=== PATIENT | male | born 1970 ===

== ENCOUNTER 2017-03-18 18:09 | Emergency (ER) | payer MEDICAID ==
[2017-03-18 18:20] VITALS: BMI 24.4
[2017-03-18 18:26] VITALS: RESP 18; O2SAT 100
[2017-03-18 20:03] LABS: BASO % 0.5 % (0.0-2.0); EOS # 0.3 K/uL (0.0-0.7); EOS % 5.3 % (0.0-4.0); HEMOGLOBIN 14.2 g/dL (12.0-18.0); LYMPH # 2.2 K/uL (1.0-4.3); LYMPH % 42.6 % (20.0-40.0); MEAN CELL VOLUME 89.2 fL (80.0-94.0); MEAN CORPUSCULAR HEMOGLOBIN 30.7 pg (27.0-31.0); MEAN CORPUSCULAR HGB CONC 34.4 g/dL (33.0-37.0); MEAN PLATELET VOLUME 9.4 fL (7.2-11.7); MONO # 0.6 K/uL (0.0-0.8); MONO % 11.2 % (0.0-10.0); NEUT # 2.1 K/uL (1.8-7.0); NEUT % 40.4 % (50.0-75.0); RBC 4.62 Mil/uL (4.40-5.90); RED CELL DISTRIBUTION WIDTH 12.6 % (11.5-14.5); WHITE BLOOD COUNT 5.1 K/uL (4.8-10.8)
[2017-03-18 20:11] LABS: INR 1.2; PROTHROMBIN TIME 12.9 SECONDS (9.7-12.2)
[2017-03-18 20:14] LABS: ALB/GLOB RATIO 1.3 (1.0-2.1); ALBUMIN 4.1 g/dL (3.5-5.0); ALT/SGPT 35 U/L (21-72); AST/SGOT 23 U/L (17-59); BLOOD UREA NITROGEN 23 mg/dL (9-20); CALCIUM 8.8 mg/dl (8.6-10.4); GFR AFRICAN-AMERICAN > 60; GFR NON-AFRICAN AMERICAN > 60
[2017-03-18 20:25] LABS: B-TYPE NATRIURETIC PEPTIDE 48.3 pg/mL (0-450)
--- NOTE | 2017-03-18 20:58 | C.PDOC ---
History Of Present Illness 47 years old male presents to ED with complaints of bilateral shoulders discomfort with movement associated with chest discomfort. 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 Patient denies fever, nausea, vomiting or diarrhea. Time Seen by Provider: 03/18/17 20:24 Chief Complaint (Nursing): Chest Pain History Per: Patient History/Exam Limitations: no limitations Onset/Duration Of Symptoms: Hrs Current Symptoms Are (Timing): Still Present Severity: Moderate Pain Scale Rating Of: 4 Quality: Other (Discomfort) Associated Symptoms: denies: Nausea, Dyspnea, Diaphoresis, Syncope Exacerbating Factors: Movement Recent travel outside of the [place]: No Past Medical History Reviewed: Historical Data, Nursing Documentation, Vital Signs Vital Signs: Last Vital Signs Temp 97.6 F 03/18/17 21:12 Pulse 60 03/18/17 21:12 Resp 18 03/18/17 21:12 BP 126/80 03/18/17 21:12 Pulse Ox 100 03/18/17 21:12 - Medical History PMH: HTN - [facility] Procedures CLOSURE SKIN & SUBCUTANEOUS NEC (10/23/14) Family History: States: No Known Family Hx - Social History Hx Alcohol Use: No Hx Substance Use: No - Immunization History Hx Tetanus Toxoid Vaccination: No Hx Influenza Vaccination: No Hx Pneumococcal Vaccination: No Review Of Systems Cardiovascular: Positive for: Other (Chest discomfort) Respiratory: Negative for: Shortness of Breath Gastrointestinal: Negative for: Nausea, Vomiting, Diarrhea Musculoskeletal: Positive for: Other (Shoulder discomfort bilaterally) Skin: Negative for: Rash Neurological: Negative for: Weakness, Numbness Psych: Negative for: Depression, Suicidal ideation Physical Exam - Physical Exam Appears: Non-toxic, Other (Awake and alert) Skin: Normal Color, Warm, Dry, No Rash Head: Atraumatic, Normacephalic Eye(s): bilateral: Normal Inspection Oral Mucosa: Moist Neck: Supple Chest: Symmetrical, Tenderness (Mildly on left anterior chest ) Cardiovascular: Rhythm Regular Respiratory: Normal Breath Sounds, No Rales, No Rhonchi, No Wheezing Gastrointestinal/Abdominal: Soft, No Tenderness Extremity: Normal ROM, No Tenderness Neurological/Psych: Oriented x3, Normal Speech, Normal Cognition ED Course And Treatment - Laboratory Results Result Diagrams: 03/18/17 19:59 03/18/17 19:59 Lab Interpretation: Normal (trop neg.) ECG: Interpreted By Me ECG Rhythm: Sinus Rhythm ECG Interpretation: Normal Rate From EC O2 Sat by Pulse Oximetry: 100 (Room air ) Pulse Ox Interpretation: Normal Reevaluation Time: 20:56 Reassessment Condition: Improved Medical Decision Making Medical Decision Making: Ordered EKG and blood work. 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 NO s/s of cardiac Disposition Doctor Will See Patient In The: Office Counseled Patient/Family Regarding: Studies Performed, Diagnosis - Disposition Referrals: Lisa Baez MD [Staff Provider] - Disposition: HOME/ ROUTINE Disposition Time: 20:57 Condition: GOOD Additional Instructions: ice packs and motrin as needed Follow-up with Dr. Baez. Instructions: Musculoskeletal Pain (ED) Forms: [facility] [employer] [facility] (Serbian) - Clinical Impression Clinical Impression: Shoulder strain - Scribe Statement The provider has reviewed the documentation as recorded by the Scribe Dawna Dia All medical record entries made by the Scribe were at my direction and personally dictated by me. I have reviewed the chart and agree that the record accurately reflects my personal performance of the history, physical exam, medical decision making, and the department course for this patient. I have also personally directed, reviewed, and agree with the discharge instructions and disposition.
[2017-03-18 21:13] VITALS: BP 126/80; PULSE 60; TEMP 97.6
== END 2017-03-18 21:15 | disposition home or self-care (01) ==
LOC: C.ER 18:09
DX: S46.912A Strain of unspecified muscle, fascia and tendon at shoulder and upper arm level, left arm, initial encounter (principal); S46.911A Strain of unspecified muscle, fascia and tendon at shoulder and upper arm level, right arm, initial encounter; X50.9XXA Other and unspecified overexertion or strenuous movements or postures, initial encounter; Y92.89 Other specified places as the place of occurrence of the external cause; Y99.8 Other external cause status; I10 Essential (primary) hypertension

== ENCOUNTER 2017-05-19 12:15 | Emergency (ER) | payer MEDICAID ==
[2017-05-19 12:16] VITALS: BMI 24.4
[2017-05-19 12:23] VITALS: TEMP 97.6
--- NOTE | 2017-05-19 13:39 | C.PDOC ---
History Of Present Illness 47 yr old male presents to the ER s/p slip and fall on ice today. Patient complains of right sided injury to the right shoulder, right wrist and striking his head on the right side. Patient reports of ongoing headache. Denies LOC, vision changes, nausea, vomiting, neck pain, weakness or numbness. 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) Past Medical History Reviewed: Historical Data, Nursing Documentation, Vital Signs Vital Signs: Last Vital Signs Temp 97.6 F 05/19/17 12:18 Pulse 76 05/19/17 12:18 Resp 18 05/19/17 12:18 BP 110/74 05/19/17 12:18 Pulse Ox 99 05/19/17 14:34 - Medical History PMH: HTN - [facility] Procedures CLOSURE SKIN & SUBCUTANEOUS NEC (10/23/14) Family History: States: No Known Family Hx - Social History Hx Alcohol Use: No Hx Substance Use: No - Immunization History Hx Tetanus Toxoid Vaccination: No Hx Influenza Vaccination: No Hx Pneumococcal Vaccination: No Review Of Systems Except As Marked, All Systems Reviewed And Found Negative. Constitutional: Positive for: Other (+ right side head injury) Eyes: Negative for: Vision Change Gastrointestinal: Negative for: Nausea, Vomiting Musculoskeletal: Positive for: Shoulder Pain (right), Other (+ right wrist pain) . Negative for: Neck Pain Neurological: Positive for: Headache. Negative for: Weakness, Numbness Physical Exam - Physical Exam Appears: Non-toxic, No Acute Distress Skin: Warm, Dry, No Rash Head: Normacephalic, Tenderness (right temporal region) Eye(s): bilateral: Normal Inspection, PERRL, EOMI Oral Mucosa: Moist Neck: Normal, Normal ROM, No Midline Cervical Tenderness, No Paracervical Tenderness, No Step Off Deformity, Supple Cardiovascular: Rhythm Regular, No Murmur Respiratory: Normal Breath Sounds, No Rales, No Rhonchi, No Stridor, No Wheezing Back: Normal Inspection, No CVA Tenderness Extremity: Tenderness (tenderness to the right dorsal wrist and right anterior shoulder) Neurological/Psych: Oriented x3, Normal Speech, Normal Motor, Normal Sensation Gait: Steady ED Course And Treatment O2 Sat by Pulse Oximetry: 99 (RA) Pulse Ox Interpretation: Normal - Other Rad X-Ray - Right Shoulder X-Ray: Viewed By Me, Read By Radiologist Interpretation: IMPRESSION: Normal radiographs of the right shoulder. X-Ray - Right Wrist X-Ray: Viewed By Me, Read By Radiologist Interpretation: IMPRESSION: Normal right wrist radiographs. - CT Scan/US CT - Head Other Rad Studies (CT/US): Read By Radiologist, Radiology Report Reviewed CT/US Interpretation: IMPERESSION: No acute intracranial pathology identified. 3mm right basal ganglia hyoechoic focus, lilkely chronic lacunar infract versus dilated perivascular space Medical Decision Making Medical Decision Making: PLAN: * CT - Head * X-Ray - Right Shoulder, Right Wrist Disposition Counseled Patient/Family Regarding: Studies Performed, Diagnosis, Need For Followup, Rx Given - Disposition Referrals: Lisa Baez MD [Staff Provider] - Disposition: HOME/ ROUTINE Disposition Time: 14:32 Condition: STABLE Additional Instructions: follow up with your doctor in 2 days call to make an appointment take medications as prescribed return to ER if symptoms worsens or progress Prescriptions: Acetaminophen/Codeine [Tylenol/Codeine 300 MG/30 MG] 1 tab PO Q6H PRN #12 tab PRN Reason: Pain, Severe (8-10) Naproxen [Naprosyn] 500 mg PO BID PRN #16 tab PRN Reason: Pain, Moderate (4-7) Instructions: Contusion (DC), Minor Head Injury (DC) Forms: General Discharge Instructions, [facility] (Croatian), Work Excuse - Clinical Impression Clinical Impression: Contusion, Concussion with no loss of consciousness - Scribe Statement The provider has reviewed the documentation as recorded by the Be Mcqueen Provider Attestation: All medical record entries made by the Rufusibtom were at my direction and personally dictated by me. I have reviewed the chart and agree that the record accurately reflects my personal performance of the history, physical exam, medical decision making, and the department course for this patient. I have also personally directed, reviewed, and agree with the discharge instructions and disposition.
--- NOTE | 2017-05-19 14:11 | CT ---
PROCEDURE: CT HEAD WITHOUT CONTRAST. HISTORY: dizziness COMPARISON: None available. TECHNIQUE: Axial computed tomography images were obtained through the head/brain without intravenous contrast. Radiation dose: Total exam DLP = 987.26 mGy-cm. This CT exam was performed using one or more of the following dose reduction techniques: Automated exposure control, adjustment of the mA and/or kV according to patient size, and/or use of iterative reconstruction technique. FINDINGS: HEMORRHAGE: No intracranial hemorrhage. BRAIN: No mass effect or edema. 3 mm right basal ganglia hypoechoic focus, likely chronic lacunar infarct versus dilated perivascular space. The tate-white matter differentiation appears otherwise intact. Please note that MRI with diffusion imaging is more sensitive in the detection of acute ischemic event. VENTRICLES: No hydrocephalus. CALVARIUM: Unremarkable. PARANASAL SINUSES: Unremarkable as visualized. No significant inflammatory changes. MASTOID AIR CELLS: Unremarkable as visualized. No inflammatory changes. OTHER FINDINGS: None. IMPRESSION: No acute intracranial pathology identified. 3 mm right basal ganglia hypoechoic focus, likely chronic lacunar infarct versus dilated perivascular space.
--- NOTE | 2017-05-19 14:14 | RAD ---
PROCEDURE: Right Wrist Radiographs. HISTORY: fall COMPARISON: None. FINDINGS: BONES: Normal. No fracture. JOINTS: Normal. No dislocation. SOFT TISSUES: Normal. OTHER FINDINGS: None. IMPRESSION: Normal right wrist radiographs.
--- NOTE | 2017-05-19 14:18 | RAD ---
PROCEDURE: Radiographs of the Right Shoulder HISTORY: fall COMPARISON: No prior. FINDINGS: BONES: Normal. No fracture. JOINTS: Normal. Glenohumeral and acromioclavicular joints preserved. No osteoarthritis. SOFT TISSUES: Normal. OTHER FINDINGS: None. IMPRESSION: Normal radiographs of the right shoulder.
[2017-05-19] MEDS ORDERED: Acetaminophen-Codeine 300/30 mg Tab PO STA (14:25)
[2017-05-19] MEDS ORDERED: Acetaminophen-Codeine 300/30 mg Tab PO ONE (15:38)
[2017-05-19 15:39] VITALS: BP 128/84; PULSE 61; RESP 20; O2SAT 98
== END 2017-05-19 15:39 | disposition home or self-care (01) ==
LOC: C.ER 12:15
DX: S06.0X0A Concussion without loss of consciousness, initial encounter (principal); T14.8XXA Other injury of unspecified body region, initial encounter; W00.0XXA Fall on same level due to ice and snow, initial encounter; I10 Essential (primary) hypertension

== ENCOUNTER 2017-07-12 11:39 | Inpatient (IN) | payer MEDICAID ==
[2017-07-12 11:47] VITALS: BMI 25.7
[2017-07-12] MEDS ORDERED: Aspirin 325 mg EC Tablets PO STA (11:55)
--- NOTE | 2017-07-12 11:58 | C.PDOC ---
History Of Present Illness 47 y/o male presents to ED with c/o of chest pain since 10am this morning. At Triage EKG done showed [place]. Immediately code heart was called and my immediate assistance required at beside. Daughter at bedside interpreting, patient denies history of similar episodes or cardiac history. Chief Complaint (Nursing): Chest Pain History Per: Patient, Family History/Exam Limitations: language barrier Onset/Duration Of Symptoms: Hrs Current Symptoms Are (Timing): Still Present Quality: Pressure Past Medical History Reviewed: Historical Data, Nursing Documentation, Vital Signs Vital Signs: Last Vital Signs Temp 98.6 F 07/12/17 11:44 Pulse 74 07/12/17 11:44 Resp 16 07/12/17 11:44 BP 152/106 H 07/12/17 11:44 Pulse Ox 100 07/12/17 12:17 - Medical History PMH: HTN Surgical History: No Surg Hx - [facility] Procedures CLOSURE SKIN & SUBCUTANEOUS NEC (10/23/14) Family History: States: Unknown Family Hx - Social History Hx Alcohol Use: No Hx Substance Use: No - Immunization History Hx Tetanus Toxoid Vaccination: No Hx Influenza Vaccination: No Hx Pneumococcal Vaccination: No Review Of Systems Constitutional: Negative for: Fever, Chills Cardiovascular: Positive for: Chest Pain Respiratory: Negative for: Cough, Shortness of Breath Gastrointestinal: Negative for: Nausea, Vomiting Physical Exam - Physical Exam Appears: Non-toxic, Other (In moderate distress) Skin: Warm, Dry, No Rash Head: Atraumatic, Normacephalic Oral Mucosa: Moist Neck: Normal ROM, Supple Cardiovascular: Rhythm Regular Respiratory: Normal Breath Sounds, No Rales, No Rhonchi, No Wheezing Gastrointestinal/Abdominal: Soft, No Tenderness, No Guarding, No Rebound Extremity: Normal ROM, No Pedal Edema, No Calf Tenderness, Capillary Refill (<2 seconds) Neurological/Psych: Oriented x3, Normal Speech, Normal Cognition ED Course And Treatment - Laboratory Results Result Diagrams: 07/12/17 11:59 ECG: Interpreted By Me, Viewed By Me ECG Rhythm: Sinus Rhythm Interpretation Of ECG: ST ELEVATIONS 2,3 AVF, V3-V6 Rate From EC (BPM ) O2 Sat by Pulse Oximetry: 100 (RA) Progress - Re-Evaluation Re-evaluation Note: 07/12/17 11:44 [facility] CALLED 07/12/17 11:54 D/W DR. ATILIO [facility] OBGYN HOSPITALIST PHYSICIAN, REFUSED TO TAKE PATIENT STATING "I DO NOT AGREE WITH YOUR DIAGNOSIS" 07/12/17 11:55 DR. MUNIZ PAGED OVERHEAD, PRESENTED AT ED TO EVAL PATIENT AT BEDSIDE AGREED WITH TAKING PATIENT 07/12/17 11:58 D/W DR BAEZ (PMD) MADE AWARE OF PATIENT'S CASE 07/12/17 12:00 DR. MUNIZ AT BEDSIDE WITH PATIENT TO SLUDGE CONTROL ATTENDANT 07/12/17 12:11 - Data Reviewed Data Reviewed: Lab, Diagnostic imaging, EKG, Old records Disposition Counseled Patient/Family Regarding: Studies Performed, Diagnosis - Disposition Disposition: HOSPITALIZED Disposition Time: 11:58 Condition: CRITICAL Forms: [facility] (Yemeni) - Clinical Impression Clinical Impression: STEMI (ST elevation myocardial infarction) - Scribe Statement The provider has reviewed the documentation as recorded by the Scribe Barbara Liu All medical record entries made by the Scribe were at my direction and personally dictated by me. I have reviewed the chart and agree that the record accurately reflects my personal performance of the history, physical exam, medical decision making, and the department course for this patient. I have also personally directed, reviewed, and agree with the discharge instructions and disposition. Decision To Admit - Pt Status Changed To: Hospital Disposition Of: Inpatient - Admit Certification Admit to Inpatient:: After my assessment, the patient will require hospitalization for at least two midnights. This is because of the severity of symptoms shown, intensity of services needed, and/or the medical risk in this patient being treated as an outpatient. - InPatient: Physician Admission Certification: I certify that this patient requires 2 or more midnights of care for the following reason:: SEE NOTE - . Bed Request Type: ICU Admitting Physician: Lisa Baez Patient Diagnosis: STEMI (ST elevation myocardial infarction)
[2017-07-12 12:04] LABS: BASO % 0.5 % (0.0-2.0); EOS # 0.1 K/uL (0.0-0.7); EOS % 3.1 % (0.0-4.0); LYMPH # 1.9 K/uL (1.0-4.3); LYMPH % 41.8 % (20.0-40.0); MEAN CELL VOLUME 88.8 fL (80.0-94.0); MEAN CORPUSCULAR HEMOGLOBIN 31.3 pg (27.0-31.0); MEAN CORPUSCULAR HGB CONC 35.2 g/dL (33.0-37.0); MEAN PLATELET VOLUME 9.1 fL (7.2-11.7); MONO # 0.3 K/uL (0.0-0.8); MONO % 7.5 % (0.0-10.0); NEUT # 2.2 K/uL (1.8-7.0); NEUT % 47.1 % (50.0-75.0); NRBC % 0.2 % (0.0-2.0); RBC 5.21 Mil/uL (4.40-5.90); RED CELL DISTRIBUTION WIDTH 12.8 % (11.5-14.5); WHITE BLOOD COUNT 4.7 K/uL (4.8-10.8)
[2017-07-12 12:05] LABS: HEMOGLOBIN 16.3 g/dL (12.0-18.0)
[2017-07-12 12:12] LABS: PROTHROMBIN TIME 11.8 SECONDS (9.7-12.2)
[2017-07-12 12:18] LABS: ALB/GLOB RATIO 1.1 (1.0-2.1); ALBUMIN 4.8 g/dL (3.5-5.0); ALT/SGPT 41 U/L (21-72); AST/SGOT 34 U/L (17-59); BLOOD UREA NITROGEN 23 mg/dL (9-20); CALCIUM 9.8 mg/dl (8.6-10.4); GFR AFRICAN-AMERICAN > 60; GFR NON-AFRICAN AMERICAN > 60
[2017-07-12 12:44] LABS: VENOUS BLOOD GAS BASE EXCESS 0.3 mmol/L (0.0-2.0); VENOUS BLOOD GAS PCO2 45 mmHg (40-60); VENOUS BLOOD GAS PO2 33 mm/Hg (30-55); VENOUS BLOOD PH 7.37 (7.32-7.43)
[2017-07-12 12:47] LABS: ARTERIAL BLOOD GAS HCO3 25.8 mmol/L (21-28); ARTERIAL BLOOD GAS HEMOGLOBIN 15.2 g/dL (11.7-17.4); ARTERIAL BLOOD GAS O2 SAT 92.7 % (95-98); ARTERIAL BLOOD GAS PCO2 43 mm/Hg (35-45); ARTERIAL BLOOD GAS PO2 61 mm/Hg (80-100); ARTERIAL BLOOD GAS TCO2 27.9 mmol/L (22-28)
--- NOTE | 2017-07-12 15:15 | CP.PCM.CON ---
<Abel Fishman - Last Filed: 07/12/17 17:22> History of Present Illness - History of Present Illness History of Present Illness: Critical Care Consult note for Dr. Cotton This is a 47 year old male with PMHx HTN and HLD who presented complaining of chest pain. This was mid-sternal pressure and started at 10 AM this morning. Patient found with ST segment elevations in the lateral leads. Code [facility] was initiated, and the patient was taken to the quality assurance lab technician where reportedly there was complete occlusion of the LAD. Stent was placed in the mid-LAD, and the patient was transferred to the ICU afterwards for monitoring. Patient states that prior to the procedure his chest pain was 10/10, and now is 1/10. PMHx: HTN, HLD Allergies: NKDA Social: Denies smoking, alcohol, drugs. Family Hx: Father with MN at age 43 and at age 53. Review of Systems - Constitutional Constitutional: absent: Chills, Fever - EENT Eyes: absent: Change in Vision Ears: absent: Decreased Hearing Nose/Mouth/Throat: absent: Nasal Congestion - Cardiovascular Cardiovascular: Chest Pain (reduced compared to prior to intervention) - Respiratory Respiratory: absent: Dyspnea - Gastrointestinal Gastrointestinal: absent: Abdominal Pain, Nausea, Vomiting - Genitourinary Genitourinary: absent: Dysuria - Musculoskeletal Musculoskeletal: absent: Back Pain - Integumentary Integumentary: absent: Rash - Neurological Neurological: absent: Dizziness - Psychiatric Psychiatric: absent: Anxiety - Endocrine Endocrine: absent: Palpitations Past Patient History - Past Social History Smoking Status: Never Smoked - CARDIAC Hx Hypertension: Yes - NEUROLOGICAL Hx Neurological Disorder: No - HEENT Hx HEENT Problems: No - RENAL Hx Chronic Kidney Disease: No - ENDOCRINE/METABOLIC Hx Endocrine Disorders: No - HEMATOLOGICAL/ONCOLOGICAL Hx Blood Disorders: No - INTEGUMENTARY Hx Dermatological Problems: No - MUSCULOSKELETAL/RHEUMATOLOGICAL Hx Falls: No - GASTROINTESTINAL Hx Gastrointestinal Disorders: No - GENITOURINARY/GYNECOLOGICAL Hx Genitourinary Disorders: No - PSYCHIATRIC Hx Psychophysiologic Disorder: No Hx Substance Use: No - SURGICAL HISTORY Hx Surgeries: Yes Other/Comment: Hx procedure for Kidney stones. Hx hemorrhoidectomy. liver surgery ? - ANESTHESIA Hx Anesthesia: Yes Hx Anesthesia Reactions: No Hx Malignant Hyperthermia: No Meds Allergies/Adverse Reactions: Allergies Allergy/AdvReac Type Severity Reaction Status Date / Time No Known Allergies Allergy Verified 07/12/17 11:52 - Medications Medications: Current Medications Aspirin (Aspirin Chewable) 81 mg PO DAILY HEAVEN Famotidine (Pepcid) 20 mg PO BID HEAVEN Metoprolol Tartrate (Lopressor) 25 mg PO BID HEAVEN Rosuvastatin Calcium (Crestor) 40 mg PO HS HEAVEN Ticagrelor (Brilinta) 90 mg PO BID HEAVEN Physical Exam - Constitutional Appears: No Acute Distress - Head Exam Head Exam: ATRAUMATIC, NORMOCEPHALIC - Eye Exam Eye Exam: EOMI, PERRL - ENT Exam ENT Exam: Mucous Membranes Moist - Respiratory Exam Respiratory Exam: Clear to Auscultation Bilateral, NORMAL BREATHING PATTERN. absent: Rales, Rhonchi, Wheezes - Cardiovascular Exam Cardiovascular Exam: REGULAR RHYTHM, +S1, +S2 - GI/Abdominal Exam GI & Abdominal Exam: Normal Bowel Sounds, Soft. absent: Distended, Tenderness - Extremities Exam Extremities exam: Negative for: pedal edema Additional comments: Right groin access site without evidence of hematoma. Dressing is clean, dry, intact - Neurological Exam Neurological exam: Alert, Oriented x3 - Psychiatric Exam Psychiatric exam: Normal Affect, Normal Mood - Skin Skin Exam: Dry, Warm Results - Vital Signs Recent Vital Signs: Last Vital Signs Temp 98.2 F 07/12/17 14:00 Pulse 76 07/12/17 14:15 Resp 16 07/12/17 14:15 BP 121/84 07/12/17 14:15 Pulse Ox 96 07/12/17 14:10 - Labs Result Diagrams: 07/12/17 11:59 07/12/17 11:59 Labs: Laboratory Results - last 24 hr 07/12/17 07/12/17 07/12/17 11:59 11:59 11:59 WBC 4.7 L RBC 5.21 Hgb 16.3 D Hct 46.3 MCV 88.8 MCH 31.3 H MCHC 35.2 RDW 12.8 Plt Count 198 MPV 9.1 Neut % (Auto) 47.1 L Lymph % (Auto) 41.8 H [place] % (Auto) 7.5 Eos % (Auto) 3.1 Baso % (Auto) 0.5 Neut # (Auto) 2.2 Lymph # (Auto) 1.9 [place] # (Auto) 0.3 Eos # (Auto) 0.1 Baso # (Auto) 0.0 PT 11.8 INR 1.0 APTT 28 Puncture Site pCO2 pO2 HCO3 ABG pH ABG Total CO2 ABG O2 Saturation ABG Base Excess ABG Hemoglobin ABG Carboxyhemoglobin POC ABG HHb (Measured) ABG Methemoglobin Henry Test VBG pH VBG pCO2 VBG HCO3 VBG Total CO2 VBG O2 Sat (Calc) VBG Base Excess VBG Potassium Hgb O2 Saturation Glucose Lactate Blood Gas Comments Crit Value Read Back Sodium 144 Potassium 3.8 Chloride 102 Carbon Dioxide 26 Anion Gap 19 BUN 23 H Creatinine 1.2 Est GFR ( Amer) > 60 Est GFR (Non-Af Amer) > 60 Random Glucose 110 Calcium 9.8 Total Bilirubin 0.9 AST 34 ALT 41 Alkaline Phosphatase 63 Troponin I 0.0490 Total Protein 9.0 H Albumin 4.8 Globulin 4.3 H Albumin/Globulin Ratio 1.1 Venous Blood Potassium Blood Type Antibody Screen 07/12/17 07/12/17 07/12/17 12:02 12:37 12:37 WBC RBC Hgb Hct MCV MCH MCHC RDW Plt Count MPV Neut % (Auto) Lymph % (Auto) [place] % (Auto) Eos % (Auto) Baso % (Auto) Neut # (Auto) Lymph # (Auto) [place] # (Auto) Eos # (Auto) Baso # (Auto) PT INR APTT Puncture Site Line pCO2 43 pO2 61 L 33 HCO3 25.8 ABG pH 7.40 ABG Total CO2 27.9 ABG O2 Saturation 92.7 L ABG Base Excess 1.4 ABG Hemoglobin 15.2 ABG Carboxyhemoglobin 2.0 H POC ABG HHb (Measured) 7.1 H ABG Methemoglobin 1.3 Henry Test Na VBG pH 7.37 VBG pCO2 45 VBG HCO3 24.2 VBG Total CO2 27.4 VBG O2 Sat (Calc) 66.0 H VBG Base Excess 0.3 VBG Potassium 3.3 L Hgb O2 Saturation 89.6 L Glucose 121 H Lactate 0.7 Blood Gas Comments Fa Pa Crit Value Read Back N N Sodium 137.0 Potassium Chloride 104.0 Carbon Dioxide Anion Gap BUN Creatinine Est GFR ( Amer) Est GFR (Non-Af Amer) Random Glucose Calcium Total Bilirubin AST ALT Alkaline Phosphatase Troponin I Total Protein Albumin Globulin Albumin/Globulin Ratio Venous Blood Potassium 3.3 L Blood Type B POSITIVE Antibody Screen Negative Assessment & Plan - Assessment and Plan (Free Text) Assessment: This is a 47 year old male with PMHx HTN and HLD who presented with chest pain. Patient diagnosed with lateral wall MN with 100% occlusion of LAD. Patient underwent PCI on 07/12/17 and stent placed in the mid-LAD. Neuro Awake, verbal Cardio Assessment: STEMI, 100% LAD occlusion s/p stent ASA 81 mg PO daily Brilinta 90 mg PO BID Lopressor 25 mg PO BID Crestor 40 mg PO HS Pulm saturating well GI Heart Healthy Diet Prophylaxis Pepcid 20 mg PO BID Holding VTE ppx for now since post PCI Discussed with Dr. Cotton <Marcial Cotton S - Last Filed: 07/12/17 17:26> Meds - Medications Medications: Current Medications Aspirin (Aspirin Chewable) 81 mg PO DAILY HEAVEN Famotidine (Pepcid) 20 mg PO BID HEAVEN Metoprolol Tartrate (Lopressor) 25 mg PO BID HEAVEN Rosuvastatin Calcium (Crestor) 40 mg PO HS HEAVEN Ticagrelor (Brilinta) 90 mg PO BID HEAVEN Results - Vital Signs Recent Vital Signs: Last Vital Signs Temp 97.5 F L 07/12/17 16:30 Pulse 81 07/12/17 16:50 Resp 20 07/12/17 16:50 BP 107/71 07/12/17 16:30 Pulse Ox 98 07/12/17 16:50 - Labs Result Diagrams: 07/12/17 11:59 07/12/17 11:59 Labs: Laboratory Results - last 24 hr 07/12/17 07/12/17 07/12/17 11:59 11:59 11:59 WBC 4.7 L RBC 5.21 Hgb 16.3 D Hct 46.3 MCV 88.8 MCH 31.3 H MCHC 35.2 RDW 12.8 Plt Count 198 MPV 9.1 Neut % (Auto) 47.1 L Lymph % (Auto) 41.8 H [place] % (Auto) 7.5 Eos % (Auto) 3.1 Baso % (Auto) 0.5 Neut # (Auto) 2.2 Lymph # (Auto) 1.9 [place] # (Auto) 0.3 Eos # (Auto) 0.1 Baso # (Auto) 0.0 PT 11.8 INR 1.0 APTT 28 Puncture Site pCO2 pO2 HCO3 ABG pH ABG Total CO2 ABG O2 Saturation ABG Base Excess ABG Hemoglobin ABG Carboxyhemoglobin POC ABG HHb (Measured) ABG Methemoglobin Henry Test VBG pH VBG pCO2 VBG HCO3 VBG Total CO2 VBG O2 Sat (Calc) VBG Base Excess VBG Potassium Hgb O2 Saturation Glucose Lactate Blood Gas Comments Crit Value Read Back Sodium 144 Potassium 3.8 Chloride 102 Carbon Dioxide 26 Anion Gap 19 BUN 23 H Creatinine 1.2 Est GFR ( Amer) > 60 Est GFR (Non-Af Amer) > 60 Random Glucose 110 Calcium 9.8 Total Bilirubin 0.9 AST 34 ALT 41 Alkaline Phosphatase 63 Troponin I 0.0490 Total Protein 9.0 H Albumin 4.8 Globulin 4.3 H Albumin/Globulin Ratio 1.1 Venous Blood Potassium Blood Type Antibody Screen 07/12/17 07/12/17 07/12/17 12:02 12:37 12:37 WBC RBC Hgb Hct MCV MCH MCHC RDW Plt Count MPV Neut % (Auto) Lymph % (Auto) [place] % (Auto) Eos % (Auto) Baso % (Auto) Neut # (Auto) Lymph # (Auto) [place] # (Auto) Eos # (Auto) Baso # (Auto) PT INR APTT Puncture Site Line pCO2 43 pO2 61 L 33 HCO3 25.8 ABG pH 7.40 ABG Total CO2 27.9 ABG O2 Saturation 92.7 L ABG Base Excess 1.4 ABG Hemoglobin 15.2 ABG Carboxyhemoglobin 2.0 H POC ABG HHb (Measured) 7.1 H ABG Methemoglobin 1.3 Henry Test Na VBG pH 7.37 VBG pCO2 45 VBG HCO3 24.2 VBG Total CO2 27.4 VBG O2 Sat (Calc) 66.0 H VBG Base Excess 0.3 VBG Potassium 3.3 L Hgb O2 Saturation 89.6 L Glucose 121 H Lactate 0.7 Blood Gas Comments Fa Pa Crit Value Read Back N N Sodium 137.0 Potassium Chloride 104.0 Carbon Dioxide Anion Gap BUN Creatinine Est GFR ( Amer) Est GFR (Non-Af Amer) Random Glucose Calcium Total Bilirubin AST ALT Alkaline Phosphatase Troponin I Total Protein Albumin Globulin Albumin/Globulin Ratio Venous Blood Potassium 3.3 L Blood Type B POSITIVE Antibody Screen Negative Attending/Attestation - Attestation I have personally seen and examined this patient.: Yes I have fully participated in the care of the patient.: Yes I have reviewed all pertinent clinical information: Yes Notes (Text): 07/12/17 17:24 patient seen and examined in the intensive care unit. Case discussed with house staff in the morning rounds. 47-year-old male admitted with chest pain and ST elevation MN status post code heart Status post stent placement for complete occlusion of LAD On brilinta, Aspirin, beta laureen and Crestor Echocardiogram
[2017-07-13 06:32] LABS: BASO % 0.3 % (0.0-2.0); EOS # 0.1 K/uL (0.0-0.7); EOS % 0.7 % (0.0-4.0); HEMOGLOBIN 15.3 g/dL (12.0-18.0); LYMPH # 1.3 K/uL (1.0-4.3); LYMPH % 14.1 % (20.0-40.0); MEAN CELL VOLUME 88.9 fL (80.0-94.0); MEAN CORPUSCULAR HEMOGLOBIN 31.1 pg (27.0-31.0); MEAN PLATELET VOLUME 9.6 fL (7.2-11.7); MONO # 0.9 K/uL (0.0-0.8); MONO % 9.3 % (0.0-10.0); NEUT # 7.3 K/uL (1.8-7.0); NEUT % 75.6 % (50.0-75.0); RBC 4.93 Mil/uL (4.40-5.90); RED CELL DISTRIBUTION WIDTH 13.1 % (11.5-14.5); WHITE BLOOD COUNT 9.6 K/uL (4.8-10.8)
[2017-07-13 07:15] LABS: LDL CHOLESTEROL 125 mg/dL (0-129)
[2017-07-13 07:18] LABS: ALB/GLOB RATIO 1.1 (1.0-2.1); ALBUMIN 4.1 g/dL (3.5-5.0); ALT/SGPT 74 U/L (21-72); AST/SGOT 431 U/L (17-59); BLOOD UREA NITROGEN 17 mg/dL (9-20); CALCIUM 9.1 mg/dl (8.6-10.4); GFR AFRICAN-AMERICAN > 60; GFR NON-AFRICAN AMERICAN > 60; HDL CHOLESTEROL 32 mg/dL (30-70)
[2017-07-13] MEDS ORDERED: Bisacodyl 5mg EC Tab PO ONE (08:43)
--- NOTE | 2017-07-13 08:48 | CP.CCUPN ---
<Abel Fishman - Last Filed: 07/13/17 09:59> CCU Subjective - Physician Review Subjective (Free Text): 07/13/17 08:47 Patient seen and examined. Patient's chest pain has improved overnight. No new complaints. CCU Objective - Vital Signs / Intake & Output Vital Signs (Last 4 hours): Vital Signs Pulse Resp BP Pulse Ox 07/13/17 06:00 78 20 97 07/13/17 05:48 84 15 125/81 97 07/13/17 05:27 114/77 07/13/17 05:00 76 17 97 07/13/17 04:57 119/76 Intake and Output (Last 8hrs): Intake & Output 07/12/17 07/13/17 07/13/17 22:59 06:59 14:59 Intake Total 330 200 Output Total 570 350 Balance -240 -150 Weight 202 lb Intake: Intake, IV Amount 0 Left Antecubital 0 Right Antecubital 0 Oral 330 200 Output: Urine 570 350 Urine, Voided 570 350 Other: # Voids Urine, Voided 1 - Physical Exam Head: Positive for: Atraumatic, Normocephalic Pupils: Positive for: PERRL Extroacular Muscles: Positive for: EOMI Conjunctiva: Positive for: Normal Mouth: Positive for: Moist Mucous Membranes Respiratory/Chest: Positive for: Clear to Auscultation. Negative for: Wheezes, Rales, Rhonchi Cardiovascular: Positive for: Regular Rate and Rhythm, Normal S1, S2 Abdomen: Positive for: Normal Bowel Sounds. Negative for: Tenderness Upper Extremity: Negative for: Edema Lower Extremity: Negative for: Edema Neurological: Positive for: GCS=15 Skin: Positive for: Warm, Dry Psychiatric: Positive for: Alert, Oriented x 3 - Medications Active Medications: Active Medications Generic Name Dose Route Start Last Admin Trade Name Freq PRN Reason Stop Dose Admin Aspirin 81 mg 07/13/17 10:00 Aspirin Chewable PO DAILY HEAVEN Famotidine 20 mg 07/12/17 18:00 07/12/17 18:22 Pepcid PO 20 mg BID HEAVEN Administration Metoprolol Tartrate 25 mg 07/12/17 18:00 07/12/17 18:22 Lopressor PO 25 mg BID HEAVEN Administration Rosuvastatin Calcium 40 mg 07/12/17 22:00 07/12/17 21:00 Crestor PO 40 mg HS HEAVEN Administration Ticagrelor 90 mg 07/12/17 18:00 07/12/17 18:22 Brilinta PO 90 mg BID HEAVEN Administration - Patient Studies Lab Studies: Lab Studies 07/13/17 07/13/17 07/13/17 Range/Units 06:26 06:26 06:25 WBC (4.8-10.8) K/uL RBC (4.40-5.90) Mil/uL Hgb (12.0-18.0) g/dL Hct (35.0-51.0) % MCV (80.0-94.0) fL MCH (27.0-31.0) pg MCHC (33.0-37.0) g/dL RDW (11.5-14.5) % Plt Count (130-400) K/uL MPV (7.2-11.7) fL Neut % (Auto) (50.0-75.0) % Lymph % (Auto) (20.0-40.0) % Hale % (Auto) (0.0-10.0) % Eos % (Auto) (0.0-4.0) % Baso % (Auto) (0.0-2.0) % Neut # (Auto) (1.8-7.0) K/uL Lymph # (Auto) (1.0-4.3) K/uL Hale # (Auto) (0.0-0.8) K/uL Eos # (Auto) (0.0-0.7) K/uL Baso # (Auto) (0.0-0.2) K/uL PT (9.7-12.2) SECONDS INR APTT (21-34) SECONDS Puncture Site pCO2 (35-45) mm/Hg pO2 (80-100) mm/Hg HCO3 (21-28) mmol/L ABG pH (7.35-7.45) ABG Total CO2 (22-28) mmol/L ABG O2 Saturation (95-98) % ABG Base Excess (-2.0-3.0) mmol/L ABG Hemoglobin (11.7-17.4) g/dL ABG Carboxyhemoglobin (0.5-1.5) % POC ABG HHb (Measured) (0.0-5.0) % ABG Methemoglobin (0.0-3.0) % Henry Test VBG pH (7.32-7.43) VBG pCO2 (40-60) mmHg VBG HCO3 mmol/L VBG Total CO2 (22-28) mmol/L VBG O2 Sat (Calc) (40-65) % VBG Base Excess (0.0-2.0) mmol/L VBG Potassium (3.6-5.2) mmol/L Hgb O2 Saturation (95.0-98.0) % Glucose (75-110) mg/dl Lactate (0.7-2.1) mmol/L Blood Gas Comments Crit Value Read Back Sodium 142 (132-148) mmol/L Potassium 4.2 (3.6-5.2) mmol/L Chloride 104 (98-107) mmol/L Carbon Dioxide 26 (22-30) mmol/L Anion Gap 16 (10-20) BUN 17 (9-20) mg/dL Creatinine 1.0 (0.8-1.5) mg/dL Est GFR ( Amer) > 60 Est GFR (Non-Af Amer) > 60 Random Glucose 101 (75-110) mg/dL Hemoglobin A1c 5.2 (4.2-6.5) % Calcium 9.1 (8.6-10.4) mg/dl Phosphorus 3.7 (2.5-4.5) mg/dL Magnesium 1.8 (1.6-2.3) mg/dL Total Bilirubin 1.2 (0.2-1.3) mg/dL AST 431 H D (17-59) U/L ALT 74 H D (21-72) U/L Alkaline Phosphatase 50 (38-126) U/L Troponin I (0.00-0.120) ng/mL Total Protein 7.8 (6.3-8.3) g/dL Albumin 4.1 (3.5-5.0) g/dL Globulin 3.7 (2.2-3.9) gm/dL Albumin/Globulin Ratio 1.1 (1.0-2.1) Triglycerides 65 (0-149) mg/dL Cholesterol 177 (0-199) mg/dL LDL Cholesterol Direct 125 (0-129) mg/dL HDL Cholesterol 32 (30-70) mg/dL Free T4 0.91 (0.78-2.19) ng/dL TSH 3rd Generation 0.29 L (0.46-4.68) mIU/L Venous Blood Potassium (3.6-5.2) mmol/L Blood Type Antibody Screen 07/13/17 07/12/17 07/12/17 Range/Units 06:25 12:37 12:37 WBC 9.6 D (4.8-10.8) K/uL RBC 4.93 (4.40-5.90) Mil/uL Hgb 15.3 (12.0-18.0) g/dL Hct 43.8 (35.0-51.0) % MCV 88.9 (80.0-94.0) fL MCH 31.1 H (27.0-31.0) pg MCHC 35.0 (33.0-37.0) g/dL RDW 13.1 (11.5-14.5) % Plt Count 180 (130-400) K/uL MPV 9.6 (7.2-11.7) fL Neut % (Auto) 75.6 H (50.0-75.0) % Lymph % (Auto) 14.1 L (20.0-40.0) % Hale % (Auto) 9.3 (0.0-10.0) % Eos % (Auto) 0.7 (0.0-4.0) % Baso % (Auto) 0.3 (0.0-2.0) % Neut # (Auto) 7.3 H (1.8-7.0) K/uL Lymph # (Auto) 1.3 (1.0-4.3) K/uL Hale # (Auto) 0.9 H (0.0-0.8) K/uL Eos # (Auto) 0.1 (0.0-0.7) K/uL Baso # (Auto) 0.0 (0.0-0.2) K/uL PT (9.7-12.2) SECONDS INR APTT (21-34) SECONDS Puncture Site Line pCO2 43 (35-45) mm/Hg pO2 33 61 L (80-100) mm/Hg HCO3 25.8 (21-28) mmol/L ABG pH 7.40 (7.35-7.45) ABG Total CO2 27.9 (22-28) mmol/L ABG O2 Saturation 92.7 L (95-98) % ABG Base Excess 1.4 (-2.0-3.0) mmol/L ABG Hemoglobin 15.2 (11.7-17.4) g/dL ABG Carboxyhemoglobin 2.0 H (0.5-1.5) % POC ABG HHb (Measured) 7.1 H (0.0-5.0) % ABG Methemoglobin 1.3 (0.0-3.0) % Henry Test Na VBG pH 7.37 (7.32-7.43) VBG pCO2 45 (40-60) mmHg VBG HCO3 24.2 mmol/L VBG Total CO2 27.4 (22-28) mmol/L VBG O2 Sat (Calc) 66.0 H (40-65) % VBG Base Excess 0.3 (0.0-2.0) mmol/L VBG Potassium 3.3 L (3.6-5.2) mmol/L Hgb O2 Saturation 89.6 L (95.0-98.0) % Glucose 121 H (75-110) mg/dl Lactate 0.7 (0.7-2.1) mmol/L Blood Gas Comments Pa Fa Crit Value Read Back N N Sodium 137.0 (132-148) mmol/L Potassium (3.6-5.2) mmol/L Chloride 104.0 (98-107) mmol/L Carbon Dioxide (22-30) mmol/L Anion Gap (10-20) BUN (9-20) mg/dL Creatinine (0.8-1.5) mg/dL Est GFR ( Amer) Est GFR (Non-Af Amer) Random Glucose (75-110) mg/dL Hemoglobin A1c (4.2-6.5) % Calcium (8.6-10.4) mg/dl Phosphorus (2.5-4.5) mg/dL Magnesium (1.6-2.3) mg/dL Total Bilirubin (0.2-1.3) mg/dL AST (17-59) U/L ALT (21-72) U/L Alkaline Phosphatase (38-126) U/L Troponin I (0.00-0.120) ng/mL Total Protein (6.3-8.3) g/dL Albumin (3.5-5.0) g/dL Globulin (2.2-3.9) gm/dL Albumin/Globulin Ratio (1.0-2.1) Triglycerides (0-149) mg/dL Cholesterol (0-199) mg/dL LDL Cholesterol Direct (0-129) mg/dL HDL Cholesterol (30-70) mg/dL Free T4 (0.78-2.19) ng/dL TSH 3rd Generation (0.46-4.68) mIU/L Venous Blood Potassium 3.3 L (3.6-5.2) mmol/L Blood Type Antibody Screen 07/12/17 07/12/17 07/12/17 Range/Units 12:02 11:59 11:59 WBC (4.8-10.8) K/uL RBC (4.40-5.90) Mil/uL Hgb (12.0-18.0) g/dL Hct (35.0-51.0) % MCV (80.0-94.0) fL MCH (27.0-31.0) pg MCHC (33.0-37.0) g/dL RDW (11.5-14.5) % Plt Count (130-400) K/uL MPV (7.2-11.7) fL Neut % (Auto) (50.0-75.0) % Lymph % (Auto) (20.0-40.0) % Hale % (Auto) (0.0-10.0) % Eos % (Auto) (0.0-4.0) % Baso % (Auto) (0.0-2.0) % Neut # (Auto) (1.8-7.0) K/uL Lymph # (Auto) (1.0-4.3) K/uL Hale # (Auto) (0.0-0.8) K/uL Eos # (Auto) (0.0-0.7) K/uL Baso # (Auto) (0.0-0.2) K/uL PT 11.8 (9.7-12.2) SECONDS INR 1.0 APTT 28 (21-34) SECONDS Puncture Site pCO2 (35-45) mm/Hg pO2 (80-100) mm/Hg HCO3 (21-28) mmol/L ABG pH (7.35-7.45) ABG Total CO2 (22-28) mmol/L ABG O2 Saturation (95-98) % ABG Base Excess (-2.0-3.0) mmol/L ABG Hemoglobin (11.7-17.4) g/dL ABG Carboxyhemoglobin (0.5-1.5) % POC ABG HHb (Measured) (0.0-5.0) % ABG Methemoglobin (0.0-3.0) % Henry Test VBG pH (7.32-7.43) VBG pCO2 (40-60) mmHg VBG HCO3 mmol/L VBG Total CO2 (22-28) mmol/L VBG O2 Sat (Calc) (40-65) % VBG Base Excess (0.0-2.0) mmol/L VBG Potassium (3.6-5.2) mmol/L Hgb O2 Saturation (95.0-98.0) % Glucose (75-110) mg/dl Lactate (0.7-2.1) mmol/L Blood Gas Comments Crit Value Read Back Sodium 144 (132-148) mmol/L Potassium 3.8 (3.6-5.2) mmol/L Chloride 102 (98-107) mmol/L Carbon Dioxide 26 (22-30) mmol/L Anion Gap 19 (10-20) BUN 23 H (9-20) mg/dL Creatinine 1.2 (0.8-1.5) mg/dL Est GFR ( Amer) > 60 Est GFR (Non-Af Amer) > 60 Random Glucose 110 (75-110) mg/dL Hemoglobin A1c (4.2-6.5) % Calcium 9.8 (8.6-10.4) mg/dl Phosphorus (2.5-4.5) mg/dL Magnesium (1.6-2.3) mg/dL Total Bilirubin 0.9 (0.2-1.3) mg/dL AST 34 (17-59) U/L ALT 41 (21-72) U/L Alkaline Phosphatase 63 (38-126) U/L Troponin I 0.0490 (0.00-0.120) ng/mL Total Protein 9.0 H (6.3-8.3) g/dL Albumin 4.8 (3.5-5.0) g/dL Globulin 4.3 H (2.2-3.9) gm/dL Albumin/Globulin Ratio 1.1 (1.0-2.1) Triglycerides (0-149) mg/dL Cholesterol (0-199) mg/dL LDL Cholesterol Direct (0-129) mg/dL HDL Cholesterol (30-70) mg/dL Free T4 (0.78-2.19) ng/dL TSH 3rd Generation (0.46-4.68) mIU/L Venous Blood Potassium (3.6-5.2) mmol/L Blood Type B POSITIVE Antibody Screen Negative 07/12/17 Range/Units 11:59 WBC 4.7 L (4.8-10.8) K/uL RBC 5.21 (4.40-5.90) Mil/uL Hgb 16.3 D (12.0-18.0) g/dL Hct 46.3 (35.0-51.0) % MCV 88.8 (80.0-94.0) fL MCH 31.3 H (27.0-31.0) pg MCHC 35.2 (33.0-37.0) g/dL RDW 12.8 (11.5-14.5) % Plt Count 198 (130-400) K/uL MPV 9.1 (7.2-11.7) fL Neut % (Auto) 47.1 L (50.0-75.0) % Lymph % (Auto) 41.8 H (20.0-40.0) % Hale % (Auto) 7.5 (0.0-10.0) % Eos % (Auto) 3.1 (0.0-4.0) % Baso % (Auto) 0.5 (0.0-2.0) % Neut # (Auto) 2.2 (1.8-7.0) K/uL Lymph # (Auto) 1.9 (1.0-4.3) K/uL Hale # (Auto) 0.3 (0.0-0.8) K/uL Eos # (Auto) 0.1 (0.0-0.7) K/uL Baso # (Auto) 0.0 (0.0-0.2) K/uL PT (9.7-12.2) SECONDS INR APTT (21-34) SECONDS Puncture Site pCO2 (35-45) mm/Hg pO2 (80-100) mm/Hg HCO3 (21-28) mmol/L ABG pH (7.35-7.45) ABG Total CO2 (22-28) mmol/L ABG O2 Saturation (95-98) % ABG Base Excess (-2.0-3.0) mmol/L ABG Hemoglobin (11.7-17.4) g/dL ABG Carboxyhemoglobin (0.5-1.5) % POC ABG HHb (Measured) (0.0-5.0) % ABG Methemoglobin (0.0-3.0) % Henry Test VBG pH (7.32-7.43) VBG pCO2 (40-60) mmHg VBG HCO3 mmol/L VBG Total CO2 (22-28) mmol/L VBG O2 Sat (Calc) (40-65) % VBG Base Excess (0.0-2.0) mmol/L VBG Potassium (3.6-5.2) mmol/L Hgb O2 Saturation (95.0-98.0) % Glucose (75-110) mg/dl Lactate (0.7-2.1) mmol/L Blood Gas Comments Crit Value Read Back Sodium (132-148) mmol/L Potassium (3.6-5.2) mmol/L Chloride (98-107) mmol/L Carbon Dioxide (22-30) mmol/L Anion Gap (10-20) BUN (9-20) mg/dL Creatinine (0.8-1.5) mg/dL Est GFR ( Amer) Est GFR (Non-Af Amer) Random Glucose (75-110) mg/dL Hemoglobin A1c (4.2-6.5) % Calcium (8.6-10.4) mg/dl Phosphorus (2.5-4.5) mg/dL Magnesium (1.6-2.3) mg/dL Total Bilirubin (0.2-1.3) mg/dL AST (17-59) U/L ALT (21-72) U/L Alkaline Phosphatase (38-126) U/L Troponin I (0.00-0.120) ng/mL Total Protein (6.3-8.3) g/dL Albumin (3.5-5.0) g/dL Globulin (2.2-3.9) gm/dL Albumin/Globulin Ratio (1.0-2.1) Triglycerides (0-149) mg/dL Cholesterol (0-199) mg/dL LDL Cholesterol Direct (0-129) mg/dL HDL Cholesterol (30-70) mg/dL Free T4 (0.78-2.19) ng/dL TSH 3rd Generation (0.46-4.68) mIU/L Venous Blood Potassium (3.6-5.2) mmol/L Blood Type Antibody Screen Laboratory Results - last 24 hr 07/12/17 07/12/17 07/12/17 11:59 11:59 11:59 WBC 4.7 L RBC 5.21 Hgb 16.3 D Hct 46.3 MCV 88.8 MCH 31.3 H MCHC 35.2 RDW 12.8 Plt Count 198 MPV 9.1 Neut % (Auto) 47.1 L Lymph % (Auto) 41.8 H Hale % (Auto) 7.5 Eos % (Auto) 3.1 Baso % (Auto) 0.5 Neut # (Auto) 2.2 Lymph # (Auto) 1.9 Hale # (Auto) 0.3 Eos # (Auto) 0.1 Baso # (Auto) 0.0 PT 11.8 INR 1.0 APTT 28 Puncture Site pCO2 pO2 HCO3 ABG pH ABG Total CO2 ABG O2 Saturation ABG Base Excess ABG Hemoglobin ABG Carboxyhemoglobin POC ABG HHb (Measured) ABG Methemoglobin Henry Test VBG pH VBG pCO2 VBG HCO3 VBG Total CO2 VBG O2 Sat (Calc) VBG Base Excess VBG Potassium Hgb O2 Saturation Glucose Lactate Blood Gas Comments Crit Value Read Back Sodium 144 Potassium 3.8 Chloride 102 Carbon Dioxide 26 Anion Gap 19 BUN 23 H Creatinine 1.2 Est GFR ( Amer) > 60 Est GFR (Non-Af Amer) > 60 Random Glucose 110 Hemoglobin A1c Calcium 9.8 Phosphorus Magnesium Total Bilirubin 0.9 AST 34 ALT 41 Alkaline Phosphatase 63 Troponin I 0.0490 Total Protein 9.0 H Albumin 4.8 Globulin 4.3 H Albumin/Globulin Ratio 1.1 Triglycerides Cholesterol LDL Cholesterol Direct HDL Cholesterol Free T4 TSH 3rd Generation Venous Blood Potassium Blood Type Antibody Screen 07/12/17 07/12/17 07/12/17 12:02 12:37 12:37 WBC RBC Hgb Hct MCV MCH MCHC RDW Plt Count MPV Neut % (Auto) Lymph % (Auto) Hale % (Auto) Eos % (Auto) Baso % (Auto) Neut # (Auto) Lymph # (Auto) Hale # (Auto) Eos # (Auto) Baso # (Auto) PT INR APTT Puncture Site Line pCO2 43 pO2 61 L 33 HCO3 25.8 ABG pH 7.40 ABG Total CO2 27.9 ABG O2 Saturation 92.7 L ABG Base Excess 1.4 ABG Hemoglobin 15.2 ABG Carboxyhemoglobin 2.0 H POC ABG HHb (Measured) 7.1 H ABG Methemoglobin 1.3 Henry Test Na VBG pH 7.37 VBG pCO2 45 VBG HCO3 24.2 VBG Total CO2 27.4 VBG O2 Sat (Calc) 66.0 H VBG Base Excess 0.3 VBG Potassium 3.3 L Hgb O2 Saturation 89.6 L Glucose 121 H Lactate 0.7 Blood Gas Comments Fa Pa Crit Value Read Back N N Sodium 137.0 Potassium Chloride 104.0 Carbon Dioxide Anion Gap BUN Creatinine Est GFR ( Amer) Est GFR (Non-Af Amer) Random Glucose Hemoglobin A1c Calcium Phosphorus Magnesium Total Bilirubin AST ALT Alkaline Phosphatase Troponin I Total Protein Albumin Globulin Albumin/Globulin Ratio Triglycerides Cholesterol LDL Cholesterol Direct HDL Cholesterol Free T4 TSH 3rd Generation Venous Blood Potassium 3.3 L Blood Type B POSITIVE Antibody Screen Negative 07/13/17 07/13/17 07/13/17 06:25 06:25 06:26 WBC 9.6 D RBC 4.93 Hgb 15.3 Hct 43.8 MCV 88.9 MCH 31.1 H MCHC 35.0 RDW 13.1 Plt Count 180 MPV 9.6 Neut % (Auto) 75.6 H Lymph % (Auto) 14.1 L Hale % (Auto) 9.3 Eos % (Auto) 0.7 Baso % (Auto) 0.3 Neut # (Auto) 7.3 H Lymph # (Auto) 1.3 Hale # (Auto) 0.9 H Eos # (Auto) 0.1 Baso # (Auto) 0.0 PT INR APTT Puncture Site pCO2 pO2 HCO3 ABG pH ABG Total CO2 ABG O2 Saturation ABG Base Excess ABG Hemoglobin ABG Carboxyhemoglobin POC ABG HHb (Measured) ABG Methemoglobin Henry Test VBG pH VBG pCO2 VBG HCO3 VBG Total CO2 VBG O2 Sat (Calc) VBG Base Excess VBG Potassium Hgb O2 Saturation Glucose Lactate Blood Gas Comments Crit Value Read Back Sodium 142 Potassium 4.2 Chloride 104 Carbon Dioxide 26 Anion Gap 16 BUN 17 Creatinine 1.0 Est GFR ( Amer) > 60 Est GFR (Non-Af Amer) > 60 Random Glucose 101 Hemoglobin A1c 5.2 Calcium 9.1 Phosphorus 3.7 Magnesium 1.8 Total Bilirubin 1.2 AST 431 H D ALT 74 H D Alkaline Phosphatase 50 Troponin I Total Protein 7.8 Albumin 4.1 Globulin 3.7 Albumin/Globulin Ratio 1.1 Triglycerides 65 Cholesterol 177 LDL Cholesterol Direct 125 HDL Cholesterol 32 Free T4 TSH 3rd Generation 0.29 L Venous Blood Potassium Blood Type Antibody Screen 07/13/17 06:26 WBC RBC Hgb Hct MCV MCH MCHC RDW Plt Count MPV Neut % (Auto) Lymph % (Auto) Hale % (Auto) Eos % (Auto) Baso % (Auto) Neut # (Auto) Lymph # (Auto) Hale # (Auto) Eos # (Auto) Baso # (Auto) PT INR APTT Puncture Site pCO2 pO2 HCO3 ABG pH ABG Total CO2 ABG O2 Saturation ABG Base Excess ABG Hemoglobin ABG Carboxyhemoglobin POC ABG HHb (Measured) ABG Methemoglobin Henry Test VBG pH VBG pCO2 VBG HCO3 VBG Total CO2 VBG O2 Sat (Calc) VBG Base Excess VBG Potassium Hgb O2 Saturation Glucose Lactate Blood Gas Comments Crit Value Read Back Sodium Potassium Chloride Carbon Dioxide Anion Gap BUN Creatinine Est GFR ( Amer) Est GFR (Non-Af Amer) Random Glucose Hemoglobin A1c Calcium Phosphorus Magnesium Total Bilirubin AST ALT Alkaline Phosphatase Troponin I Total Protein Albumin Globulin Albumin/Globulin Ratio Triglycerides Cholesterol LDL Cholesterol Direct HDL Cholesterol Free T4 0.91 TSH 3rd Generation Venous Blood Potassium Blood Type Antibody Screen EKG/Cardiology Studies: Cardiology / EKG Studies 07/12/17 11:45 ELECTROCARDIOGRAM Stat Comment: Mode Of Transportation: BED Reason For Exam: chest pain 07/12/17 11:55 ELECTROCARDIOGRAM Stat Comment: Mode Of Transportation: BED Reason For Exam: chest pain 07/12/17 15:18 EKG [ELECTROCARDIOGRAM] Stat Comment: Mode Of Transportation: Reason For Exam: chest pain Critical Care Progress Note - Nutrition Nutrition: Nutrition Category Date Time Status Heart Healthy Diet [DIET] Diets 07/12/17 Dinner Active Assessment/Plan - Assessment and Plan (Free Text) Assessment: This is a 47 year old male with PMHx HTN and HLD who presented with chest pain. Patient diagnosed with lateral wall SC with 100% occlusion of LAD. Patient underwent PCI on 07/12/17 and BANG placed in the mid-LAD. Stable for downgrade to telemetry at this time. Neuro Awake, verbal Cardio Assessment: STEMI, 100% LAD occlusion s/p Drug eluting stent ASA 81 mg PO daily Brilinta 90 mg PO BID Lopressor 25 mg PO BID Crestor reduced to 20 mg PO HS after elevation of LFTs Pulm saturating well GI Heart Healthy Diet Prophylaxis Pepcid 20 mg PO BID Holding VTE ppx for now since post PCI Disposition: Stable for transfer to telemetry Discussed with Dr. Cotton <Marcial Cotton S - Last Filed: 07/13/17 17:14> CCU Objective - Vital Signs / Intake & Output Vital Signs (Last 4 hours): Vital Signs Pulse Resp BP Pulse Ox 07/13/17 17:00 95 H 17 97 07/13/17 16:48 89 27 H 100/66 07/13/17 16:00 81 18 97 07/13/17 15:48 89 15 90/60 L 97 07/13/17 15:00 84 18 95 07/13/17 14:48 88 21 96/67 L 94 L 07/13/17 14:24 96 H 14 96 07/13/17 13:21 84 24 104/64 95 Intake and Output (Last 8hrs): Intake & Output 07/13/17 07/13/17 07/13/17 06:59 14:59 22:59 Intake Total 200 910 Output Total 350 301 Balance -150 609 Weight 202 lb Intake: Intake, IV Amount 0 Right Antecubital 0 Oral 200 910 Output: Urine 350 301 Urine, Voided 350 301 Other: # Voids Urine, Voided 1 - Medications Active Medications: Active Medications Generic Name Dose Route Start Last Admin Trade Name Freq PRN Reason Stop Dose Admin Aspirin 81 mg 07/13/17 10:00 07/13/17 09:22 Aspirin Chewable PO 81 mg DAILY HEAVEN Administration Famotidine 20 mg 07/12/17 18:00 07/13/17 09:23 Pepcid PO 20 mg BID HEAVEN Administration Ibuprofen 400 mg 07/13/17 11:49 07/13/17 11:56 Motrin Tab PO 400 mg Q6H PRN Administration Pain, moderate (4-7) Lisinopril 5 mg 07/13/17 13:00 07/13/17 13:23 Zestril PO 5 mg DAILY HEAVEN Administration Metoprolol Tartrate 25 mg 07/12/17 18:00 07/13/17 09:23 Lopressor PO 25 mg BID HEAVEN Administration Pneumococcal Polyvalent Vaccine 0.5 ml 07/15/17 10:00 Pneumovax 23 Vaccine IM 07/15/17 10:01 .ONCE ONE Rosuvastatin Calcium 20 mg 07/13/17 09:10 Crestor PO HS HEAVEN Ticagrelor 90 mg 07/12/17 18:00 07/13/17 09:22 Brilinta PO 90 mg BID HEAVEN Administration - Patient Studies Lab Studies: Lab Studies 07/13/17 07/13/17 07/13/17 Range/Units 11:19 06:26 06:26 WBC (4.8-10.8) K/uL RBC (4.40-5.90) Mil/uL Hgb (12.0-18.0) g/dL Hct (35.0-51.0) % MCV (80.0-94.0) fL MCH (27.0-31.0) pg MCHC (33.0-37.0) g/dL RDW (11.5-14.5) % Plt Count (130-400) K/uL MPV (7.2-11.7) fL Neut % (Auto) (50.0-75.0) % Lymph % (Auto) (20.0-40.0) % Hale % (Auto) (0.0-10.0) % Eos % (Auto) (0.0-4.0) % Baso % (Auto) (0.0-2.0) % Neut # (Auto) (1.8-7.0) K/uL Lymph # (Auto) (1.0-4.3) K/uL Hale # (Auto) (0.0-0.8) K/uL Eos # (Auto) (0.0-0.7) K/uL Baso # (Auto) (0.0-0.2) K/uL Sodium 142 (132-148) mmol/L Potassium 4.2 (3.6-5.2) mmol/L Chloride 104 (98-107) mmol/L Carbon Dioxide 26 (22-30) mmol/L Anion Gap 16 (10-20) BUN 17 (9-20) mg/dL Creatinine 1.0 (0.8-1.5) mg/dL Est GFR ( Amer) > 60 Est GFR (Non-Af Amer) > 60 Random Glucose 101 (75-110) mg/dL Hemoglobin A1c (4.2-6.5) % Calcium 9.1 (8.6-10.4) mg/dl Phosphorus 3.7 (2.5-4.5) mg/dL Magnesium 1.8 (1.6-2.3) mg/dL Total Bilirubin 1.2 (0.2-1.3) mg/dL AST 431 H D (17-59) U/L ALT 74 H D (21-72) U/L Alkaline Phosphatase 50 (38-126) U/L Troponin I 78.7000 H* (0.00-0.120) ng/mL NT-Pro-B Natriuret Pep 2150 H (0-450) pg/mL Total Protein 7.8 (6.3-8.3) g/dL Albumin 4.1 (3.5-5.0) g/dL Globulin 3.7 (2.2-3.9) gm/dL Albumin/Globulin Ratio 1.1 (1.0-2.1) Triglycerides 65 (0-149) mg/dL Cholesterol 177 (0-199) mg/dL LDL Cholesterol Direct 125 (0-129) mg/dL HDL Cholesterol 32 (30-70) mg/dL Free T4 0.91 (0.78-2.19) ng/dL TSH 3rd Generation 0.29 L (0.46-4.68) mIU/L 07/13/17 07/13/17 Range/Units 06:25 06:25 WBC 9.6 D (4.8-10.8) K/uL RBC 4.93 (4.40-5.90) Mil/uL Hgb 15.3 (12.0-18.0) g/dL Hct 43.8 (35.0-51.0) % MCV 88.9 (80.0-94.0) fL MCH 31.1 H (27.0-31.0) pg MCHC 35.0 (33.0-37.0) g/dL RDW 13.1 (11.5-14.5) % Plt Count 180 (130-400) K/uL MPV 9.6 (7.2-11.7) fL Neut % (Auto) 75.6 H (50.0-75.0) % Lymph % (Auto) 14.1 L (20.0-40.0) % Hale % (Auto) 9.3 (0.0-10.0) % Eos % (Auto) 0.7 (0.0-4.0) % Baso % (Auto) 0.3 (0.0-2.0) % Neut # (Auto) 7.3 H (1.8-7.0) K/uL Lymph # (Auto) 1.3 (1.0-4.3) K/uL Hale # (Auto) 0.9 H (0.0-0.8) K/uL Eos # (Auto) 0.1 (0.0-0.7) K/uL Baso # (Auto) 0.0 (0.0-0.2) K/uL Sodium (132-148) mmol/L Potassium (3.6-5.2) mmol/L Chloride (98-107) mmol/L Carbon Dioxide (22-30) mmol/L Anion Gap (10-20) BUN (9-20) mg/dL Creatinine (0.8-1.5) mg/dL Est GFR ( Amer) Est GFR (Non-Af Amer) Random Glucose (75-110) mg/dL Hemoglobin A1c 5.2 (4.2-6.5) % Calcium (8.6-10.4) mg/dl Phosphorus (2.5-4.5) mg/dL Magnesium (1.6-2.3) mg/dL Total Bilirubin (0.2-1.3) mg/dL AST (17-59) U/L ALT (21-72) U/L Alkaline Phosphatase (38-126) U/L Troponin I (0.00-0.120) ng/mL NT-Pro-B Natriuret Pep (0-450) pg/mL Total Protein (6.3-8.3) g/dL Albumin (3.5-5.0) g/dL Globulin (2.2-3.9) gm/dL Albumin/Globulin Ratio (1.0-2.1) Triglycerides (0-149) mg/dL Cholesterol (0-199) mg/dL LDL Cholesterol Direct (0-129) mg/dL HDL Cholesterol (30-70) mg/dL Free T4 (0.78-2.19) ng/dL TSH 3rd Generation (0.46-4.68) mIU/L Laboratory Results - last 24 hr 07/13/17 07/13/17 07/13/17 06:25 06:25 06:26 WBC 9.6 D RBC 4.93 Hgb 15.3 Hct 43.8 MCV 88.9 MCH 31.1 H MCHC 35.0 RDW 13.1 Plt Count 180 MPV 9.6 Neut % (Auto) 75.6 H Lymph % (Auto) 14.1 L Hale % (Auto) 9.3 Eos % (Auto) 0.7 Baso % (Auto) 0.3 Neut # (Auto) 7.3 H Lymph # (Auto) 1.3 Hale # (Auto) 0.9 H Eos # (Auto) 0.1 Baso # (Auto) 0.0 Sodium 142 Potassium 4.2 Chloride 104 Carbon Dioxide 26 Anion Gap 16 BUN 17 Creatinine 1.0 Est GFR ( Amer) > 60 Est GFR (Non-Af Amer) > 60 Random Glucose 101 Hemoglobin A1c 5.2 Calcium 9.1 Phosphorus 3.7 Magnesium 1.8 Total Bilirubin 1.2 AST 431 H D ALT 74 H D Alkaline Phosphatase 50 Troponin I NT-Pro-B Natriuret Pep Total Protein 7.8 Albumin 4.1 Globulin 3.7 Albumin/Globulin Ratio 1.1 Triglycerides 65 Cholesterol 177 LDL Cholesterol Direct 125 HDL Cholesterol 32 Free T4 TSH 3rd Generation 0.29 L 07/13/17 07/13/17 06:26 11:19 WBC RBC Hgb Hct MCV MCH MCHC RDW Plt Count MPV Neut % (Auto) Lymph % (Auto) Hale % (Auto) Eos % (Auto) Baso % (Auto) Neut # (Auto) Lymph # (Auto) Hale # (Auto) Eos # (Auto) Baso # (Auto) Sodium Potassium Chloride Carbon Dioxide Anion Gap BUN Creatinine Est GFR ( Amer) Est GFR (Non-Af Amer) Random Glucose Hemoglobin A1c Calcium Phosphorus Magnesium Total Bilirubin AST ALT Alkaline Phosphatase Troponin I 78.7000 H* NT-Pro-B Natriuret Pep 2150 H Total Protein Albumin Globulin Albumin/Globulin Ratio Triglycerides Cholesterol LDL Cholesterol Direct HDL Cholesterol Free T4 0.91 TSH 3rd Generation Critical Care Progress Note - Nutrition Nutrition: Nutrition Category Date Time Status Heart Healthy Diet [DIET] Diets 07/12/17 Dinner Active Attending/Attestation - Attestation I have personally seen and examined this patient.: Yes I have fully participated in the care of the patient.: Yes I have reviewed all pertinent clinical information: Yes Notes (Text): 07/13/17 17:13 patient seen and examined in the intensive care unit. Status post stent placement for ST elevation SC No further chest pain Stable for transfer to telemetry
--- NOTE | 2017-07-13 11:38 | CP.PCM.HP ---
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 then came to er found to have ac stemi was tacking for c.cath had metalic stent don for lac Present on Admission - Present on Admission Any Indicators Present on Admission: No Review of Systems - Review of Systems Systems not reviewed;Unavailable: Acuity of Condition - Constitutional Constitutional: As Per HPI - EENT Eyes: As Per HPI Ears: As Per HPI Nose/Mouth/Throat: As Per HPI - Cardiovascular Cardiovascular: Chest Pain, Chest Pain at Rest, Dyspnea on Exertion - Respiratory Respiratory: Pain on Inspiration - Gastrointestinal Gastrointestinal: As Per HPI - Genitourinary Genitourinary: As Per HPI - Reproductive: Male Reproductive:Male: As Per HPI - Musculoskeletal Musculoskeletal: As Per HPI - Integumentary Integumentary: As Per HPI - Neurological Neurological: As Per HPI - Psychiatric Psychiatric: As Per HPI - Endocrine Endocrine: As Per HPI - Hematologic/Lymphatic Hematologic: As Per HPI Past Patient History - Past Medical History & Family History Past Medical History?: Yes Pertinent Family History: htn - Past Social History Smoking Status: Never Smoked Chewing Tobacco Use: No Cigar Use: No Alcohol: None Home Situation {Lives}: With Family Domestic Violence: Negative - CARDIAC Hx Hypertension: Yes - NEUROLOGICAL Hx Neurological Disorder: No - HEENT Hx HEENT Problems: No - RENAL Hx Chronic Kidney Disease: No - ENDOCRINE/METABOLIC Hx Endocrine Disorders: No - HEMATOLOGICAL/ONCOLOGICAL Hx Blood Disorders: No - INTEGUMENTARY Hx Dermatological Problems: No - MUSCULOSKELETAL/RHEUMATOLOGICAL Hx Falls: No - GASTROINTESTINAL Hx Gastrointestinal Disorders: No - GENITOURINARY/GYNECOLOGICAL Hx Genitourinary Disorders: No - PSYCHIATRIC Hx Psychophysiologic Disorder: No Hx Substance Use: No - SURGICAL HISTORY Hx Surgeries: Yes Other/Comment: Hx procedure for Kidney stones. Hx hemorrhoidectomy. liver surgery ? - ANESTHESIA Hx Anesthesia: Yes Hx Anesthesia Reactions: No Hx Malignant Hyperthermia: No Meds Allergies/Adverse Reactions: Allergies Allergy/AdvReac Type Severity Reaction Status Date / Time No Known Allergies Allergy Verified 07/12/17 11:52 Physical Exam - Head Exam Head Exam: ATRAUMATIC - Eye Exam Eye Exam: Normal appearance Pupil Exam: NORMAL ACCOMODATION - ENT Exam ENT Exam: Mucous Membranes Moist - Neck Exam Neck exam: Positive for: Full Rom - Respiratory Exam Respiratory Exam: Clear to Auscultation Bilateral - Cardiovascular Exam Cardiovascular Exam: REGULAR RHYTHM - GI/Abdominal Exam GI & Abdominal Exam: Normal Bowel Sounds, Soft - Rectal Exam Rectal Exam: Deferred - Exam Exam: NORMAL INSPECTION - Extremities Exam Extremities exam: Positive for: normal inspection - Back Exam Back exam: NORMAL INSPECTION - Neurological Exam Neurological exam: Oriented x3 - Psychiatric Exam Psychiatric exam: Normal Affect - Skin Skin Exam: Normal Color Results - Vital Signs Recent Vital Signs: Last Vital Signs Temp 98 F 07/13/17 04:00 Pulse 78 07/13/17 06:00 Resp 20 07/13/17 06:00 BP 112/76 07/13/17 09:23 Pulse Ox 97 07/13/17 06:00 - Labs Result Diagrams: 07/13/17 06:25 07/13/17 06:26 Labs: Laboratory Results - last 24 hr 07/12/17 07/12/17 07/12/17 11:59 11:59 11:59 WBC 4.7 L RBC 5.21 Hgb 16.3 D Hct 46.3 MCV 88.8 MCH 31.3 H MCHC 35.2 RDW 12.8 Plt Count 198 MPV 9.1 Neut % (Auto) 47.1 L Lymph % (Auto) 41.8 H [place] % (Auto) 7.5 Eos % (Auto) 3.1 Baso % (Auto) 0.5 Neut # (Auto) 2.2 Lymph # (Auto) 1.9 Bradford # (Auto) 0.3 Eos # (Auto) 0.1 Baso # (Auto) 0.0 PT 11.8 INR 1.0 APTT 28 Puncture Site pCO2 pO2 HCO3 ABG pH ABG Total CO2 ABG O2 Saturation ABG Base Excess ABG Hemoglobin ABG Carboxyhemoglobin POC ABG HHb (Measured) ABG Methemoglobin Henry Test VBG pH VBG pCO2 VBG HCO3 VBG Total CO2 VBG O2 Sat (Calc) VBG Base Excess VBG Potassium Hgb O2 Saturation Glucose Lactate Blood Gas Comments Crit Value Read Back Sodium 144 Potassium 3.8 Chloride 102 Carbon Dioxide 26 Anion Gap 19 BUN 23 H Creatinine 1.2 Est GFR ( Amer) > 60 Est GFR (Non-Af Amer) > 60 Random Glucose 110 Hemoglobin A1c Calcium 9.8 Phosphorus Magnesium Total Bilirubin 0.9 AST 34 ALT 41 Alkaline Phosphatase 63 Troponin I 0.0490 Total Protein 9.0 H Albumin 4.8 Globulin 4.3 H Albumin/Globulin Ratio 1.1 Triglycerides Cholesterol LDL Cholesterol Direct HDL Cholesterol Free T4 TSH 3rd Generation Venous Blood Potassium Blood Type Antibody Screen 07/12/17 07/12/17 07/12/17 12:02 12:37 12:37 WBC RBC Hgb Hct MCV MCH MCHC RDW Plt Count MPV Neut % (Auto) Lymph % (Auto) Bradford % (Auto) Eos % (Auto) Baso % (Auto) Neut # (Auto) Lymph # (Auto) Bradford # (Auto) Eos # (Auto) Baso # (Auto) PT INR APTT Puncture Site Line pCO2 43 pO2 61 L 33 HCO3 25.8 ABG pH 7.40 ABG Total CO2 27.9 ABG O2 Saturation 92.7 L ABG Base Excess 1.4 ABG Hemoglobin 15.2 ABG Carboxyhemoglobin 2.0 H POC ABG HHb (Measured) 7.1 H ABG Methemoglobin 1.3 Henry Test Na VBG pH 7.37 VBG pCO2 45 VBG HCO3 24.2 VBG Total CO2 27.4 VBG O2 Sat (Calc) 66.0 H VBG Base Excess 0.3 VBG Potassium 3.3 L Hgb O2 Saturation 89.6 L Glucose 121 H Lactate 0.7 Blood Gas Comments Fa Pa Crit Value Read Back N N Sodium 137.0 Potassium Chloride 104.0 Carbon Dioxide Anion Gap BUN Creatinine Est GFR ( Amer) Est GFR (Non-Af Amer) Random Glucose Hemoglobin A1c Calcium Phosphorus Magnesium Total Bilirubin AST ALT Alkaline Phosphatase Troponin I Total Protein Albumin Globulin Albumin/Globulin Ratio Triglycerides Cholesterol LDL Cholesterol Direct HDL Cholesterol Free T4 TSH 3rd Generation Venous Blood Potassium 3.3 L Blood Type B POSITIVE Antibody Screen Negative 07/13/17 07/13/17 07/13/17 06:25 06:25 06:26 WBC 9.6 D RBC 4.93 Hgb 15.3 Hct 43.8 MCV 88.9 MCH 31.1 H MCHC 35.0 RDW 13.1 Plt Count 180 MPV 9.6 Neut % (Auto) 75.6 H Lymph % (Auto) 14.1 L Bradford % (Auto) 9.3 Eos % (Auto) 0.7 Baso % (Auto) 0.3 Neut # (Auto) 7.3 H Lymph # (Auto) 1.3 Bradford # (Auto) 0.9 H Eos # (Auto) 0.1 Baso # (Auto) 0.0 PT INR APTT Puncture Site pCO2 pO2 HCO3 ABG pH ABG Total CO2 ABG O2 Saturation ABG Base Excess ABG Hemoglobin ABG Carboxyhemoglobin POC ABG HHb (Measured) ABG Methemoglobin Henry Test VBG pH VBG pCO2 VBG HCO3 VBG Total CO2 VBG O2 Sat (Calc) VBG Base Excess VBG Potassium Hgb O2 Saturation Glucose Lactate Blood Gas Comments Crit Value Read Back Sodium 142 Potassium 4.2 Chloride 104 Carbon Dioxide 26 Anion Gap 16 BUN 17 Creatinine 1.0 Est GFR ( Amer) > 60 Est GFR (Non-Af Amer) > 60 Random Glucose 101 Hemoglobin A1c 5.2 Calcium 9.1 Phosphorus 3.7 Magnesium 1.8 Total Bilirubin 1.2 AST 431 H D ALT 74 H D Alkaline Phosphatase 50 Troponin I Total Protein 7.8 Albumin 4.1 Globulin 3.7 Albumin/Globulin Ratio 1.1 Triglycerides 65 Cholesterol 177 LDL Cholesterol Direct 125 HDL Cholesterol 32 Free T4 TSH 3rd Generation 0.29 L Venous Blood Potassium Blood Type Antibody Screen 07/13/17 06:26 WBC RBC Hgb Hct MCV MCH MCHC RDW Plt Count MPV Neut % (Auto) Lymph % (Auto) Bradford % (Auto) Eos % (Auto) Baso % (Auto) Neut # (Auto) Lymph # (Auto) Bradford # (Auto) Eos # (Auto) Baso # (Auto) PT INR APTT Puncture Site pCO2 pO2 HCO3 ABG pH ABG Total CO2 ABG O2 Saturation ABG Base Excess ABG Hemoglobin ABG Carboxyhemoglobin POC ABG HHb (Measured) ABG Methemoglobin Henry Test VBG pH VBG pCO2 VBG HCO3 VBG Total CO2 VBG O2 Sat (Calc) VBG Base Excess VBG Potassium Hgb O2 Saturation Glucose Lactate Blood Gas Comments Crit Value Read Back Sodium Potassium Chloride Carbon Dioxide Anion Gap BUN Creatinine Est GFR ( Amer) Est GFR (Non-Af Amer) Random Glucose Hemoglobin A1c Calcium Phosphorus Magnesium Total Bilirubin AST ALT Alkaline Phosphatase Troponin I Total Protein Albumin Globulin Albumin/Globulin Ratio Triglycerides Cholesterol LDL Cholesterol Direct HDL Cholesterol Free T4 0.91 TSH 3rd Generation Venous Blood Potassium Blood Type Antibody Screen Assessment & Plan - Assessment and Plan (Free Text) Assessment: ac mi stemi s/p stent htn hyperlipedeamia Plan: as per ccu orders - Date & Time Date: 07/13/17 Time: 11:42
[2017-07-13 12:18] LABS: TROPONIN I 78.7 ng/mL (0.00-0.120)
--- NOTE | 2017-07-13 13:02 | CARD ---
APPROVED REPORT EKG Measurement Heart [id number] <Conclusion> Normal sinus rhythm Inferior infarct, age undetermined Anterior infarct, possibly acute Inferior injury pattern Lateral injury pattern ACUTE MD / STEMI Consider right ventricular involvement in acute inferior infarct Abnormal ECG
--- NOTE | 2017-07-13 13:02 | CARD ---
APPROVED REPORT EKG Measurement Heart [id number] <Conclusion> Poor data quality, interpretation may be adversely affected Normal sinus rhythm Inferior infarct, age undetermined Anteroseptal infarct, possibly acute ACUTE VA / STEMI Abnormal ECG
--- NOTE | 2017-07-13 13:38 | CP.PCM.CON ---
History of Present Illness - History of Present Illness History of Present Illness: Consultation for evaluation of STEMI s/p PCI of proximal 100% occluded LAD HPI; 47 year old male with hx of dyslipidemia presented to ED with c/o 2 hours onset of chest pain [employer]. On presentation was noted to have AWMI for which he underwent PCi of proximal LAD with BANG x 1. overnight stayed stable. Peak TnI at 78 Review of Systems - Review of Systems Systems not reviewed;Unavailable: Acuity of Condition - Constitutional Constitutional: As Per HPI - EENT Eyes: As Per HPI Ears: As Per HPI Nose/Mouth/Throat: As Per HPI - Cardiovascular Cardiovascular: As Per HPI - Respiratory Respiratory: As Per HPI - Gastrointestinal Gastrointestinal: As Per HPI - Genitourinary Genitourinary: As Per HPI - Reproductive: Male Reproductive:Male: As Per HPI - Musculoskeletal Musculoskeletal: As Per HPI - Integumentary Integumentary: As Per HPI - Neurological Neurological: As Per HPI - Psychiatric Psychiatric: As Per HPI - Endocrine Endocrine: As Per HPI - Hematologic/Lymphatic Hematologic: As Per HPI Past Patient History - Past Medical History & Family History Past Medical History?: Yes - Past Social History Smoking Status: Never Smoked Chewing Tobacco Use: No Cigar Use: No Alcohol: None Home Situation {Lives}: With Family Domestic Violence: Negative - CARDIAC Hx Hypertension: Yes - NEUROLOGICAL Hx Neurological Disorder: No - HEENT Hx HEENT Problems: No - RENAL Hx Chronic Kidney Disease: No - ENDOCRINE/METABOLIC Hx Endocrine Disorders: No - HEMATOLOGICAL/ONCOLOGICAL Hx Blood Disorders: No - INTEGUMENTARY Hx Dermatological Problems: No - MUSCULOSKELETAL/RHEUMATOLOGICAL Hx Falls: No - GASTROINTESTINAL Hx Gastrointestinal Disorders: No - GENITOURINARY/GYNECOLOGICAL Hx Genitourinary Disorders: No - PSYCHIATRIC Hx Psychophysiologic Disorder: No Hx Substance Use: No - SURGICAL HISTORY Hx Surgeries: Yes Other/Comment: Hx procedure for Kidney stones. Hx hemorrhoidectomy. liver surgery ? - ANESTHESIA Hx Anesthesia: Yes Hx Anesthesia Reactions: No Hx Malignant Hyperthermia: No Meds Allergies/Adverse Reactions: Allergies Allergy/AdvReac Type Severity Reaction Status Date / Time No Known Allergies Allergy Verified 07/12/17 11:52 - Medications Medications: Current Medications Aspirin (Aspirin Chewable) 81 mg PO DAILY [facility] Last Admin: 07/13/17 09:22 Dose: 81 mg Famotidine (Pepcid) 20 mg PO BID [facility] Last Admin: 07/13/17 09:23 Dose: 20 mg Ibuprofen (Motrin Tab) 400 mg PO Q6H PRN PRN Reason: Pain, moderate (4-7) Last Admin: 07/13/17 11:56 Dose: 400 mg Lisinopril (Zestril) 5 mg PO DAILY [facility] Last Admin: 07/13/17 13:23 Dose: 5 mg Metoprolol Tartrate (Lopressor) 25 mg PO BID [facility] Last Admin: 07/13/17 09:23 Dose: 25 mg Pneumococcal Polyvalent Vaccine (Pneumovax 23 Vaccine) 0.5 ml IM .ONCE ONE Stop: 07/15/17 10:01 Rosuvastatin Calcium (Crestor) 20 mg PO [facility] Ticagrelor (Brilinta) 90 mg PO BID [facility] Last Admin: 07/13/17 09:22 Dose: 90 mg Physical Exam - Constitutional Appears: Well - Head Exam Head Exam: ATRAUMATIC, NORMAL INSPECTION, NORMOCEPHALIC - Eye Exam Eye Exam: EOMI, Normal appearance, PERRL Pupil Exam: NORMAL ACCOMODATION, PERRL - ENT Exam ENT Exam: Mucous Membranes Moist, Normal Exam - Neck Exam Neck exam: Positive for: Normal Inspection - Respiratory Exam Respiratory Exam: Clear to Auscultation Bilateral, NORMAL BREATHING PATTERN - Cardiovascular Exam Cardiovascular Exam: REGULAR RHYTHM, RRR, +S1, +S2, Systolic Murmur - GI/Abdominal Exam GI & Abdominal Exam: Normal Bowel Sounds, Soft. absent: Tenderness - Extremities Exam Extremities exam: Positive for: normal inspection - Back Exam Back exam: NORMAL INSPECTION - Neurological Exam Neurological exam: Alert, CN II-XII Intact, Normal Gait, Oriented x3, Reflexes Normal - Psychiatric Exam Psychiatric exam: Normal Affect, Normal Mood - Skin Skin Exam: Dry, Intact, Normal Color, Warm Results - Vital Signs Recent Vital Signs: Last Vital Signs Temp 98.6 F 07/13/17 12:00 Pulse 82 07/13/17 12:48 Resp 15 07/13/17 12:48 BP 113/83 07/13/17 12:48 Pulse Ox 92 L 07/13/17 12:48 - Labs Result Diagrams: 07/13/17 06:25 07/13/17 06:26 Labs: Laboratory Results - last 24 hr 07/13/17 07/13/17 07/13/17 06:25 06:25 06:26 WBC 9.6 D RBC 4.93 Hgb 15.3 Hct 43.8 MCV 88.9 MCH 31.1 H MCHC 35.0 RDW 13.1 Plt Count 180 MPV 9.6 Neut % (Auto) 75.6 H Lymph % (Auto) 14.1 L [place] % (Auto) 9.3 Eos % (Auto) 0.7 Baso % (Auto) 0.3 Neut # (Auto) 7.3 H Lymph # (Auto) 1.3 [place] # (Auto) 0.9 H Eos # (Auto) 0.1 Baso # (Auto) 0.0 Sodium 142 Potassium 4.2 Chloride 104 Carbon Dioxide 26 Anion Gap 16 BUN 17 Creatinine 1.0 Est GFR ( Amer) > 60 Est GFR (Non-Af Amer) > 60 Random Glucose 101 Hemoglobin A1c 5.2 Calcium 9.1 Phosphorus 3.7 Magnesium 1.8 Total Bilirubin 1.2 AST 431 H D ALT 74 H D Alkaline Phosphatase 50 Troponin I NT-Pro-B Natriuret Pep Total Protein 7.8 Albumin 4.1 Globulin 3.7 Albumin/Globulin Ratio 1.1 Triglycerides 65 Cholesterol 177 LDL Cholesterol Direct 125 HDL Cholesterol 32 Free T4 TSH 3rd Generation 0.29 L 07/13/17 07/13/17 06:26 11:19 WBC RBC Hgb Hct MCV MCH MCHC RDW Plt Count MPV Neut % (Auto) Lymph % (Auto) [place] % (Auto) Eos % (Auto) Baso % (Auto) Neut # (Auto) Lymph # (Auto) [place] # (Auto) Eos # (Auto) Baso # (Auto) Sodium Potassium Chloride Carbon Dioxide Anion Gap BUN Creatinine Est GFR ( Amer) Est GFR (Non-Af Amer) Random Glucose Hemoglobin A1c Calcium Phosphorus Magnesium Total Bilirubin AST ALT Alkaline Phosphatase Troponin I 78.7000 H* NT-Pro-B Natriuret Pep 2150 H Total Protein Albumin Globulin Albumin/Globulin Ratio Triglycerides Cholesterol LDL Cholesterol Direct HDL Cholesterol Free T4 0.91 TSH 3rd Generation Assessment & Plan (1) STEMI (ST elevation myocardial infarction) Assessment and Plan: s/p PCi of proximal LAD cont DAPT x 1 year GDMT for CAD ( BB, statins, ACEI ) telemetry echo Status: Acute (2) CAD (coronary artery disease) Assessment and Plan: staged PCI of RCA and LCx Status: Acute (3) CHF (congestive heart failure) Status: Acute (4) Chest pain Status: Acute
--- NOTE | 2017-07-13 19:42 | CARD ---
APPROVED REPORT EXAM: Two-dimensional and M-mode echocardiogram with Doppler and color Doppler. Other Information Quality : GoodRhythm : INDICATION Chest Pain Non STEMI CODE HEART 2D DIMENSIONS IVSd1.4 (0.7-1.1cm)LVDd3.7 (3.9-5.9cm) PWd1.2 (0.7-1.1cm)LVDs2.3 (2.5-4.0cm) FS (%) 38.3 %LVEF (%)69.5 (>50%) M-Mode DIMENSIONS Left Atrium (MM)3.24 (2.5-4.0cm)Aortic Root3.29 (2.2-3.7cm) Aortic Cusp Exc.2.28 (1.5-2.0cm) Mitral Valve MV E Ykxtpdve13.9cm/sMV A Uwtajfbn73.2cm/sE/A ratio0.9 TDI E/Lateral E'0.0E/Medial E'0.0 Tricuspid Valve TR Peak Ombxesyz871rl/sTR Peak Gr.25mmHg LEFT VENTRICLE The left ventricle is normal size. There is mild concentric left ventricular hypertrophy. Left ventricle systolic function is borderline. The Ejection Fraction is 50-55%. There is mild hypokinesis in the apical-inferoseptal wall. Transmitral Doppler flow pattern is Grade I-abnormal relaxation pattern. There is no ventricular septal defect visualized. RIGHT VENTRICLE The right ventricle is normal size. The right ventricular systolic function is normal. ATRIA The left atrium is mildly dilated. The right atrium size is normal. AORTIC VALVE The aortic valve is mildly sclerotic. The aortic valve is tri-cuspid. No aortic regurgitation is present. There is no aortic valvular stenosis. MITRAL VALVE The mitral valve is normal in structure. There is no evidence of mitral valve prolapse. Mitral regurgitation is trace. TRICUSPID VALVE The tricuspid valve is normal in structure. There is trace tricuspid regurgitation. Right ventricular systolic pressure is estimated at less than 30 mmHg. There is no pulmonary hypertension. PULMONIC VALVE The pulmonary valve is normal in structure. There is trace pulmonic valvular regurgitation. GREAT VESSELS The aortic root is normal in size. The ascending aorta is normal in size. The IVC is normal in size and collapses >50% with inspiration. PERICARDIAL EFFUSION There is no pericardial effusion. <Conclusion> There is mild concentric left ventricular hypertrophy. Left ventricle systolic function is borderline. The Ejection Fraction is 50-55%. There is mild hypokinesis in the apical-inferoseptal wall. Transmitral Doppler flow pattern is Grade I-abnormal relaxation pattern. Mitral regurgitation is trace.
[2017-07-14 16:55] VITALS: PULSE 85; RESP 20; TEMP 97.3; O2SAT 95
[2017-07-14 17:13] VITALS: BP 97/53
--- NOTE | 2017-07-14 17:25 | CP.PCM.PN ---
Subjective - Date & Time of Evaluation Date of Evaluation: 07/14/17 Time of Evaluation: 17:19 - Subjective Subjective: pt seen and no chest pain feels la was seen by dr peñaloza and advise discharge today and will have another c [facility] Objective - Vital Signs/Intake and Output Vital Signs (last 24 hours): Temp Pulse Resp BP Pulse Ox 97.3 F L 85 20 97/53 L 95 07/14/17 16:00 07/14/17 16:00 07/14/17 16:00 07/14/17 17:13 07/14/17 16:00 Intake and Output: 07/14/17 07/14/17 06:59 18:59 Intake Total 100 360 Output Total 0 Balance 100 360 - Medications Medications: Current Medications Aspirin (Aspirin Chewable) 81 mg PO DAILY [facility] Last Admin: 07/14/17 09:02 Dose: 81 mg Famotidine (Pepcid) 20 mg PO BID [facility] Last Admin: 07/14/17 17:12 Dose: 20 mg Ibuprofen (Motrin Tab) 400 mg PO Q6H PRN PRN Reason: Pain, moderate (4-7) Last Admin: 07/13/17 11:56 Dose: 400 mg Lisinopril (Zestril) 5 mg PO DAILY [facility] Last Admin: 07/14/17 09:02 Dose: 5 mg Metoprolol Tartrate (Lopressor) 25 mg PO BID [facility] Last Admin: 07/14/17 17:13 Dose: 25 mg Pneumococcal Polyvalent Vaccine (Pneumovax 23 Vaccine) 0.5 ml IM .ONCE ONE Stop: 07/15/17 10:01 Rosuvastatin Calcium (Crestor) 20 mg PO [facility] Last Admin: 07/13/17 21:59 Dose: 20 mg Ticagrelor (Brilinta) 90 mg PO BID [facility] Last Admin: 07/14/17 17:13 Dose: 90 mg - Labs Labs: 07/13/17 06:25 07/13/17 06:26 PT 11.8 SECONDS (9.7-12.2) 07/12/17 11:59 INR 1.0 07/12/17 11:59 APTT 28 SECONDS (21-34) 07/12/17 11:59 - Constitutional Appears: Well - Head Exam Head Exam: NORMAL INSPECTION - Eye Exam Eye Exam: EOMI Pupil Exam: NORMAL ACCOMODATION - ENT Exam ENT Exam: Mucous Membranes Moist - Neck Exam Neck Exam: Normal Inspection - Respiratory Exam Respiratory Exam: NORMAL BREATHING PATTERN - Cardiovascular Exam Cardiovascular Exam: REGULAR RHYTHM - GI/Abdominal Exam GI & Abdominal Exam: Soft - Extremities Exam Extremities Exam: Full ROM - Back Exam Back Exam: NORMAL INSPECTION - Neurological Exam Neurological Exam: Alert, Normal Gait, Oriented x3 - Psychiatric Exam Psychiatric exam: Normal Affect - Skin Skin Exam: Normal Color Assessment and Plan - Assessment and Plan (Free Text) Assessment: s/p stemi s/p stent htn Plan: discharge cont as per rx
--- NOTE | 2017-07-15 04:21 | CARDCATH ---
PROCEDURE DATE: 07/12/2017 INDICATIONS: Mr. Mari Guerrero is a 47-year-old male with history of hypertension, dyslipidemia who presented to [facility] emergency room on 07/12/2017 around noon time, with complaints of chest pain that started 2 hours prior to presentation. He was noted on his EKG to have [address] elevations throughout the anterior precordial leads and was emergently taken to the [facility] for further evaluation and treatment. PROCEDURE PERFORMED: Emergent left heart catheterization with selective left and right coronary angiogram via femoral approach, 6-Malaysian right femoral arterial access, PTCA stenting of proximal LAD, deployment of 3.5 x 30 Xience drug eluting stent, lesion reduction from 99% down to 0% CHANI-3 flow, and Mynx closure device for hemostasis. TECHNIQUES OF PROCEDURE: After obtaining informed consent, the patient was brought emergently to the [facility] from the ER for ST elevation NH. Using modified Seldinger technique, a 6-Malaysian sheath was introduced into the right femoral artery. Subsequently, over a J-wire, XB 3.5 guiding catheter was used to engage the left coronary system. Angiograms were obtained in different orthogonal views. CORONARY ANATOMY: The left main, large-sized vessel, bifurcates into LAD and circumflex. Left anterior descending had proximal 100% occlusion with CHANI-0 flow. Left circumflex runs in the AV groove and gives off a large obtuse marginal branch. Left circumflex has a 95% stenosis, obtuse marginal moderate 50% stenosis. Right coronary artery nondominant large sized vessel has two tandem 80% stenosis. TECHNIQUES OF INTERVENTION: After reviewing the above angiographic findings, wire was used to cross the lesion, and the lesion was pre-dilated with 2.5 x 15 mm balloon, subsequently, the mid LAD lesion was identified with a ruptured plaque. It was stented with a 3 x 30 mm Xience drug-eluting stent with lesion reduction down to 0% CHANI-3 flow. Left ventricular ejection fraction was performed, which showed anterolateral hypokinesis, ejection fraction of 40% to 45%. IMPRESSION: Successful revascularization of proximal LAD 100% thrombotic occlusion, deployment of 3 x 30 mm Xience drug-eluting stent, lesion reduction up to 0% CHANI-3 flow, mild ischemic cardiomyopathy, ejection fraction 40% to 45%. RECOMMENDATIONS: The patient is admitted to ICU for further evaluation and treatment. Continue the patient on dual antiplatelet therapy for one year. Guideline directed therapy for CAD with aspirin, statin, beta laureen, nitrates, and initiation of HELIO inhibitors. Consider staged intervention of RCA plus/minus left circumflex distal lesion. Deo Lopez MD
[2017-07-15] MEDS ORDERED: Pneumococcal 23-Valent Vaccine IM ONE (10:00)
== END 2017-07-14 18:10 | disposition home or self-care (01) | DRG 853 ==
LOC: C.ER 11:39 → C.9I 12:00
PROVIDERS: ADMIT Internal Medicine; ATTEND Internal Medicine
PROC: 4A023N8 Measurement of Cardiac Sampling and Pressure, Bilateral, Percutaneous Approach (ICD-10-PCS; principal; 2017-07-12)
PROC: 027034Z Dilation of Coronary Artery, One Artery with Drug-eluting Intraluminal Device, Percutaneous Approach (ICD-10-PCS; 2017-07-12)
PROC: B2161ZZ Fluoroscopy of Right and Left Heart using Low Osmolar Contrast (ICD-10-PCS; 2017-07-12)
PROC: B2111ZZ Fluoroscopy of Multiple Coronary Arteries using Low Osmolar Contrast (ICD-10-PCS; 2017-07-12)
DX: I21.09 ST elevation (STEMI) myocardial infarction involving other coronary artery of anterior wall (principal); I11.0 Hypertensive heart disease with heart failure; I50.9 Heart failure, unspecified; I25.119 Atherosclerotic heart disease of native coronary artery with unspecified angina pectoris; I25.82 Chronic total occlusion of coronary artery; E78.5 Hyperlipidemia, unspecified; I25.5 Ischemic cardiomyopathy; Z79.82 Long term (current) use of aspirin

== ENCOUNTER 2017-07-22 02:00 | Inpatient (IN) | payer MEDICAID ==
--- NOTE | 2017-07-22 02:02 | C.PDOC ---
History Of Present Illness Patient presents to the ER with a complaint of chest pain. Patient had an DC with recent catheterization on 07/18/17, he began having chest pain tonight again which prompted him to drive here to the ER. Denies SOB, nausea, or vomiting. Time Seen by Provider: 07/22/17 02:01 History Per: Patient History/Exam Limitations: no limitations Onset/Duration Of Symptoms: Hrs Current Symptoms Are (Timing): Still Present Severity: Moderate Pain Scale Rating Of: 5 Associated Symptoms: denies: Nausea, Dyspnea, Diaphoresis, Syncope Modifying Factors: None Exacerbating Factors: None Alleviating Factors: None Recent travel outside of the [place]: No Past Medical History Reviewed: Historical Data, Nursing Documentation, Vital Signs Vital Signs: Last Vital Signs Temp 98.8 F 07/22/17 02:06 Pulse 85 07/22/17 02:41 Resp 20 07/22/17 02:41 BP 116/72 07/22/17 02:41 Pulse Ox 98 07/22/17 02:42 - Medical History PMH: HTN - [facility] Procedures CLOSURE SKIN & SUBCUTANEOUS NEC (10/23/14) DILATION OF 1 COR ART WITH DRUG-ELUT INTRA, PERC APPROACH (07/12/17) FLUOROSCOPY OF MULT COR ART USING L OSM CONTRAST (07/12/17) FLUOROSCOPY OF RIGHT AND LEFT HEART USING L OSM CONTRAST (07/12/17) MEASURE CARDIAC SAMPL & PRESSURE, BILATERAL, PERC (07/12/17) Family History: States: No Known Family Hx - Social History Hx Alcohol Use: No Hx Substance Use: No - Immunization History Hx Tetanus Toxoid Vaccination: No Hx Influenza Vaccination: No Hx Pneumococcal Vaccination: No Review Of Systems Constitutional: Negative for: Fever, Chills Eyes: Negative for: Vision Change ENT: Negative for: Throat Pain Cardiovascular: Positive for: Chest Pain Respiratory: Positive for: Shortness of Breath Gastrointestinal: Negative for: Nausea, Vomiting Genitourinary: Negative for: Dysuria Musculoskeletal: Negative for: Back Pain Skin: Negative for: Rash Neurological: Negative for: Weakness Psych: Negative for: Anxiety Physical Exam - Physical Exam Appears: Non-toxic Skin: Warm, Dry Head: Normacephalic Eye(s): bilateral: Normal Inspection Nose: Normal Oral Mucosa: Moist Neck: Supple Chest: Symmetrical Cardiovascular: Rhythm Regular Respiratory: No Rales, No Rhonchi, No Wheezing Gastrointestinal/Abdominal: Soft, No Tenderness, No Distention Back: Normal Inspection, No CVA Tenderness Extremity: Normal ROM Extremity: Bilateral: Atraumatic, Normal Color And Temperature Pulses: Left Dorsalis Pedis: Normal, Right Dorsalis Pedis: Normal Neurological/Psych: Oriented x3 Gait: Steady ED Course And Treatment - Laboratory Results Result Diagrams: 07/22/17 02:09 07/22/17 02:09 ECG: Interpreted By Me, Viewed By Me ECG Rhythm: Sinus Rhythm (98), ST/T Changes (lat ischemic changes,), Nonspecific Changes (unchanged from 07/18/17) O2 Sat by Pulse Oximetry: 98 Pulse Ox Interpretation: Normal - Radiology CXR: Interpreted by Me, Viewed By Me CXR Interpretation: Yes: Cardiomegaly, Other (mild chf). No: Infiltrates, Fracture Progress Note: Sent copies of EKG done today and EKG from 07/18/[address] Lopez at 02:23 who said patient does not meet criteria for code heart. Critical Care Time - Critical Care Note Total Time (in mins): 30 Documented critical care: time excludes all time spent performing seperately billable procedures. Disposition Discussed With : Lisa Baez Comment: accepted the pt on her service and took over the care at 2:57 AM Doctor Will See Patient In The: Hospital Counseled Patient/Family Regarding: Studies Performed, Diagnosis - Disposition Referrals: Deo Lopez MD [Primary Care Provider] - Disposition: HOSPITALIZED Disposition Time: 02:02 Condition: GUARDED - Clinical Impression Clinical Impression: Chest pain, NSTEMI (non-ST elevated myocardial infarction) - Scribe Statement The provider has reviewed the documentation as recorded by the Scribtom Degroot All medical record entries made by the Scribe were at my direction and personally dictated by me. I have reviewed the chart and agree that the record accurately reflects my personal performance of the history, physical exam, medical decision making, and the department course for this patient. I have also personally directed, reviewed, and agree with the discharge instructions and disposition. Decision To Admit - Pt Status Changed To: Hospital Disposition Of: Inpatient - Admit Certification Admit to Inpatient:: After my assessment, the patient will require hospitalization for at least two midnights. This is because of the severity of symptoms shown, intensity of services needed, and/or the medical risk in this patient being treated as an outpatient. - InPatient: Physician Admission Certification: I certify that this patient requires 2 or more midnights of care for the following reason:: After my assessment, the patient will require hospitalization for at least two midnights. This is because of the severity of symptoms shown, intensity of services needed, and/or the medical risk in this patient being treated as an outpatient. - . Bed Request Type: Telemetry Admitting Physician: Lisa Baez Patient Diagnosis: Chest pain, NSTEMI (non-ST elevated myocardial infarction)
[2017-07-22 02:05] VITALS: BMI 27.3
[2017-07-22] MEDS ORDERED: Aspirin 325 mg EC Tablets PO STA (02:08)
[2017-07-22] MEDS ORDERED: Morphine 4 MG/ML VIAL ONE (02:11)
[2017-07-22 02:17] LABS: BASO # 0.1 K/uL (0.0-0.2); BASO % 0.9 % (0.0-2.0); EOS # 0.2 K/uL (0.0-0.7); EOS % 2.4 % (0.0-4.0); HEMOGLOBIN 12.4 g/dL (12.0-18.0); LYMPH # 1.7 K/uL (1.0-4.3); LYMPH % 21.9 % (20.0-40.0); MEAN CORPUSCULAR HEMOGLOBIN 30.7 pg (27.0-31.0); MEAN CORPUSCULAR HGB CONC 34.5 g/dL (33.0-37.0); MEAN PLATELET VOLUME 9.3 fL (7.2-11.7); MONO # 0.8 K/uL (0.0-0.8); MONO % 9.6 % (0.0-10.0); NEUT # 5.2 K/uL (1.8-7.0); NEUT % 65.2 % (50.0-75.0); RBC 4.04 Mil/uL (4.40-5.90); RED CELL DISTRIBUTION WIDTH 12.7 % (11.5-14.5); WHITE BLOOD COUNT 7.9 K/uL (4.8-10.8)
[2017-07-22 02:19] LABS: INR 1.3; PROTHROMBIN TIME 14.3 SECONDS (9.7-12.2)
[2017-07-22 02:30] LABS: ALBUMIN 3.8 g/dL (3.5-5.0); ALT/SGPT 31 U/L (21-72); AST/SGOT 37 U/L (17-59); BLOOD UREA NITROGEN 26 mg/dL (9-20); CALCIUM 9.1 mg/dl (8.6-10.4); GFR AFRICAN-AMERICAN > 60; GFR NON-AFRICAN AMERICAN > 60
[2017-07-22 02:38] LABS: B-TYPE NATRIURETIC PEPTIDE 1890 pg/mL (0-450); CK-MB 2.51 ng/mL (0.0-3.38)
[2017-07-22] MEDS: Morphine 4 MG/ML VIAL IV PRN ×2 (05:00→11:12)
--- NOTE | 2017-07-22 06:50 | CP.PCM.CON ---
History of Present Illness - History of Present Illness History of Present Illness: 47 M with h/o CAD recent RCA stents on 07/18, left radial approach, comes with c/ o chest pain which has been there in range of 2/10 since he left, but last night got worse around 9pm by the time reached ER 08/21. Patient points out with finger on the right lower about 11th or 12th rib. The pain this morning was in epigastrium and left lower rib, at one point 10/10 then with morphine 04/23, also c/o nausea and heart burn, which he mentions has been on going since 6 months. Initial trop 4.9 up form last on 07/18 3.8, EKG slight deeper t in v leads as compared to the EKG prior admission. No sob, fever, or positional changes. PMH as above Allergies NKDA Social Denies smoking, alcohol, illicit drugs Meds reviewed taking plavix, asa, metopolol, lisinopril, statin post discharge. Review of Systems - Review of Systems All systems: reviewed and no additional remarkable complaints except (HPI) Past Patient History - Infectious Disease Hx of Infectious Diseases: None - Past Medical History & Family History Past Medical History?: Yes - Past Social History Smoking Status: Never Smoked Alcohol: None Home Situation {Lives}: With Family - CARDIAC Hx Hypertension: Yes - NEUROLOGICAL Hx Paralysis: No - HEENT Hx HEENT Problems: No - RENAL Hx Chronic Kidney Disease: No - ENDOCRINE/METABOLIC Hx Endocrine Disorders: No - HEMATOLOGICAL/ONCOLOGICAL Hx Blood Transfusions: No - INTEGUMENTARY Hx Dermatological Problems: No - MUSCULOSKELETAL/RHEUMATOLOGICAL Hx Falls: No - GASTROINTESTINAL Hx Gastrointestinal Disorders: No - GENITOURINARY/GYNECOLOGICAL Hx Genitourinary Disorders: No - PSYCHIATRIC Hx Substance Use: No - SURGICAL HISTORY Hx Surgeries: Yes Hx Cardiac Catheterization: Yes - ANESTHESIA Hx Anesthesia: Yes Hx Anesthesia Reactions: No Hx Malignant Hyperthermia: No Meds Allergies/Adverse Reactions: Allergies Allergy/AdvReac Type Severity Reaction Status Date / Time No Known Allergies Allergy Verified 07/22/17 02:04 - Medications Medications: Current Medications Aspirin (Ecotrin) 81 mg PO DAILY [facility] Clopidogrel Bisulfate (Plavix) 75 mg PO DAILY [facility] Famotidine (Pepcid) 20 mg PO BID [facility] Last Admin: 07/22/17 06:24 Dose: Not Given Home Med (Atorvastatin [Lipitor]) 80 mg PO DAILY [facility] Lisinopril (Zestril) 10 mg PO DAILY [facility] Metoprolol Succinate (Toprol Xl) 25 mg PO DAILY [facility] Morphine Sulfate (Morphine) 2 mg IV Q6 PRN PRN Reason: chest pain Last Admin: 07/22/17 05:00 Dose: 2 mg Physical Exam - Additional Findings Additional findings: * HEENT SAMMIE * Neck supple * Chest Clear * CVS regular, no gallop or rub * PA slight epigastric tenderness * Ext no edema * 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 * Skin normal turgor Results - Vital Signs Recent Vital Signs: Last Vital Signs Temp 98.5 F 07/22/17 03:30 Pulse 73 07/22/17 04:35 Resp 20 07/22/17 04:35 BP 109/69 07/22/17 04:35 Pulse Ox 99 07/22/17 04:35 - Labs Result Diagrams: 07/22/17 02:09 07/22/17 02:09 Labs: Laboratory Results - last 24 hr 07/22/17 07/22/17 07/22/17 02:09 02:09 02:09 WBC 7.9 RBC 4.04 L Hgb 12.4 D Hct 35.9 MCV 89.0 MCH 30.7 MCHC 34.5 RDW 12.7 Plt Count 189 MPV 9.3 Neut % (Auto) 65.2 Lymph % (Auto) 21.9 [place] % (Auto) 9.6 Eos % (Auto) 2.4 Baso % (Auto) 0.9 Neut # (Auto) 5.2 Lymph # (Auto) 1.7 [place] # (Auto) 0.8 Eos # (Auto) 0.2 Baso # (Auto) 0.1 PT 14.3 H INR 1.3 APTT 34 Sodium 144 Potassium 4.1 Chloride 103 Carbon Dioxide 25 Anion Gap 19 BUN 26 H Creatinine 1.2 Est GFR ( Amer) > 60 Est GFR (Non-Af Amer) > 60 Random Glucose 96 Calcium 9.1 Total Bilirubin 0.7 AST 37 ALT 31 Alkaline Phosphatase 52 Total Creatine Kinase 120 CK-MB (Mass) 2.51 Troponin I 4.9500 H* NT-Pro-B Natriuret Pep 1890 H Total Protein 7.6 Albumin 3.8 Globulin 3.8 Albumin/Globulin Ratio 1.0 Blood Type Antibody Screen 07/22/17 07/22/17 02:10 02:18 WBC RBC Hgb Hct MCV MCH MCHC RDW Plt Count MPV Neut % (Auto) Lymph % (Auto) [place] % (Auto) Eos % (Auto) Baso % (Auto) Neut # (Auto) Lymph # (Auto) [place] # (Auto) Eos # (Auto) Baso # (Auto) PT INR APTT Sodium Potassium Chloride Carbon Dioxide Anion Gap BUN Creatinine Est GFR ( Amer) Est GFR (Non-Af Amer) Random Glucose Calcium Total Bilirubin AST ALT Alkaline Phosphatase Total Creatine Kinase CK-MB (Mass) Troponin I 4.9100 H* NT-Pro-B Natriuret Pep Total Protein Albumin Globulin Albumin/Globulin Ratio Blood Type B POSITIVE Antibody Screen Negative Assessment & Plan - Assessment and Plan (Free Text) Assessment: * The pain location is not typical but slight deepened t waves could be post mi changes vs ischemia, slight rise of troponin from 5/7 may also suggest ischemia , but if should rise significantly due to c/o pain upon repeat, clinically not positional hence pericarditis unlikely. * Recent RCA stents, and non critical LAD disease. Plan: * f/u repeat troponin may empirically start heparin drip, if significant rise of trop will transfer to ICU, patient is on cardioprotective meds, cardiology is on case.
[2017-07-22 07:04] LABS: CK-MB 2.27 ng/mL (0.0-3.38); TROPONIN I 4.88 ng/mL (0.00-0.120)
[2017-07-22] MEDS: Heparin25000 units/250ml 1/2NS 25,000 UNITS/250 ML BAG IV PRN (07:38)
--- NOTE | 2017-07-22 08:19 | RAD ---
Chest x-ray single frontal view History: Chest pain. Comparison: None available. Findings: Mild venous congestion. Bilateral hilar prominence. Heart size within normal limits. Degenerative changes in the spine and shoulders. Impression: Mild venous congestion. Bilateral hilar prominence.
--- NOTE | 2017-07-22 10:54 | CP.PCM.HP ---
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 Present on Admission - Present on Admission Any Indicators Present on Admission: No Review of Systems - Review of Systems Systems not reviewed;Unavailable: Acuity of Condition, Respiratory Distress - Constitutional Constitutional: Fatigue - EENT Eyes: As Per HPI Ears: As Per HPI Nose/Mouth/Throat: As Per HPI - Cardiovascular Cardiovascular: Chest Pain at Rest, Chest Pain with Activity, Dyspnea - Respiratory Respiratory: Dyspnea - Gastrointestinal Gastrointestinal: As Per HPI - Genitourinary Genitourinary: As Per HPI - Reproductive: Male Reproductive:Male: As Per HPI - Musculoskeletal Musculoskeletal: As Per HPI - Integumentary Integumentary: As Per HPI - Neurological Neurological: As Per HPI - Psychiatric Psychiatric: As Per HPI - Endocrine Endocrine: As Per HPI - Hematologic/Lymphatic Hematologic: As Per HPI Past Patient History - Infectious Disease Hx of Infectious Diseases: None - Past Medical History & Family History Past Medical History?: Yes - Past Social History Smoking Status: Never Smoked Alcohol: None Home Situation {Lives}: With Family - CARDIAC Hx Hypertension: Yes - NEUROLOGICAL Hx Paralysis: No - HEENT Hx HEENT Problems: No - RENAL Hx Chronic Kidney Disease: No - ENDOCRINE/METABOLIC Hx Endocrine Disorders: No - HEMATOLOGICAL/ONCOLOGICAL Hx Blood Transfusions: No - INTEGUMENTARY Hx Dermatological Problems: No - MUSCULOSKELETAL/RHEUMATOLOGICAL Hx Falls: No - GASTROINTESTINAL Hx Gastrointestinal Disorders: No - GENITOURINARY/GYNECOLOGICAL Hx Genitourinary Disorders: No - PSYCHIATRIC Hx Substance Use: No - SURGICAL HISTORY Hx Surgeries: Yes Hx Cardiac Catheterization: Yes - ANESTHESIA Hx Anesthesia: Yes Hx Anesthesia Reactions: No Hx Malignant Hyperthermia: No Meds Allergies/Adverse Reactions: Allergies Allergy/AdvReac Type Severity Reaction Status Date / Time No Known Allergies Allergy Verified 07/22/17 02:04 Physical Exam - Constitutional Appears: In Acute Distress - Head Exam Head Exam: ATRAUMATIC - Eye Exam Eye Exam: Normal appearance Pupil Exam: NORMAL ACCOMODATION - ENT Exam ENT Exam: Mucous Membranes Moist - Neck Exam Neck exam: Positive for: Full Rom - Respiratory Exam Respiratory Exam: Prolonged Expiratory Phase, Rales - Cardiovascular Exam Cardiovascular Exam: REGULAR RHYTHM - GI/Abdominal Exam GI & Abdominal Exam: Normal Bowel Sounds - Extremities Exam Extremities exam: Positive for: normal inspection - Back Exam Back exam: NORMAL INSPECTION - Neurological Exam Neurological exam: Alert, Oriented x3 - Psychiatric Exam Psychiatric exam: Normal Affect - Skin Skin Exam: Normal Color Results - Vital Signs Recent Vital Signs: Last Vital Signs Temp 97.5 F L 07/22/17 07:41 Pulse 83 07/22/17 07:47 Resp 20 07/22/17 07:41 BP 98/62 L 07/22/17 07:41 Pulse Ox 98 07/22/17 07:41 - Labs Result Diagrams: 07/22/17 02:09 07/22/17 02:09 Labs: Laboratory Results - last 24 hr 07/22/17 07/22/17 07/22/17 02:09 02:09 02:09 WBC 7.9 RBC 4.04 L Hgb 12.4 D Hct 35.9 MCV 89.0 MCH 30.7 MCHC 34.5 RDW 12.7 Plt Count 189 MPV 9.3 Neut % (Auto) 65.2 Lymph % (Auto) 21.9 [place] % (Auto) 9.6 Eos % (Auto) 2.4 Baso % (Auto) 0.9 Neut # (Auto) 5.2 Lymph # (Auto) 1.7 [place] # (Auto) 0.8 Eos # (Auto) 0.2 Baso # (Auto) 0.1 PT 14.3 H INR 1.3 APTT 34 Sodium 144 Potassium 4.1 Chloride 103 Carbon Dioxide 25 Anion Gap 19 BUN 26 H Creatinine 1.2 Est GFR ( Amer) > 60 Est GFR (Non-Af Amer) > 60 Random Glucose 96 Calcium 9.1 Total Bilirubin 0.7 AST 37 ALT 31 Alkaline Phosphatase 52 Total Creatine Kinase 120 CK-MB (Mass) 2.51 Troponin I 4.9500 H* NT-Pro-B Natriuret Pep 1890 H Total Protein 7.6 Albumin 3.8 Globulin 3.8 Albumin/Globulin Ratio 1.0 Blood Type Antibody Screen 07/22/17 07/22/17 07/22/17 02:10 02:18 06:29 WBC RBC Hgb Hct MCV MCH MCHC RDW Plt Count MPV Neut % (Auto) Lymph % (Auto) [place] % (Auto) Eos % (Auto) Baso % (Auto) Neut # (Auto) Lymph # (Auto) [place] # (Auto) Eos # (Auto) Baso # (Auto) PT INR APTT Sodium Potassium Chloride Carbon Dioxide Anion Gap BUN Creatinine Est GFR ( Amer) Est GFR (Non-Af Amer) Random Glucose Calcium Total Bilirubin AST ALT Alkaline Phosphatase Total Creatine Kinase 110 CK-MB (Mass) 2.27 Troponin I 4.9100 H* 4.8800 H* NT-Pro-B Natriuret Pep Total Protein Albumin Globulin Albumin/Globulin Ratio Blood Type B POSITIVE Antibody Screen Negative - EKG Data EKG shows normal: Sinus rhythm, ST-T waves (ischemia) - EKG Data When Compared to Previous EKG: Significant Changes Interpretation: Acute Ischemia Assessment & Plan - Assessment and Plan (Free Text) Assessment: ac chest pain ac iscemia chf r side chest pain r/ope s/p stents Plan: as per orders - Date & Time Date: 07/22/17 Time: 10:59
[2017-07-22] MEDS: Metoprolol Succinate 25 mg XL Tab PO SCH (11:32)
[2017-07-22] MEDS ORDERED: Iodixanol 320 MG/ML 100 ML BOTTLE IV ONE (11:35)
[2017-07-22 11:54] LABS: CK-MB 2.76 ng/mL (0.0-3.38)
--- NOTE | 2017-07-22 12:59 | CT ---
PROCEDURE: CT Chest with contrast HISTORY: chest pain r side sob lymphsdenopsthy COMPARISON: None. TECHNIQUE: Contiguous axial images were obtained through the chest with intravenous contrast enhancement. Sagittal and coronal reconstructions were performed. IV contrast: 100 mL Visipaque 320 Radiation dose (DLP): 730.74 mGy-cm. This CT exam was performed using one or more of the following dose reduction techniques: Automated exposure control, adjustment of the mA and/or kV according to patient size, and/or use of iterative reconstruction technique. FINDINGS: LUNGS: Clear lungs. Visualized airway clear. MEDIASTINUM: Unremarkable thoracic aorta. No aneurysm or dissection. Normal size heart. Trace pericardial effusion. Main pulmonary artery unremarkable. No vascular congestion. No lymphadenopathy. PLEURA: Minimal bilateral lower lobe dependent atelectasis. No pleural effusion. BONES: No fracture. No destructive lesion. UPPER ABDOMEN: Two left upper pole renal cortical cysts, 3.5 cm and 2.6 cm, respectively in diameter. OTHER FINDINGS: None. IMPRESSION: No pulmonary infiltrate. No lymphadenopathy. Trace pericardial effusion. Two left renal cysts incidentally noted.
[2017-07-22 15:30] LABS: TROPONIN I 4.11 ng/mL (0.00-0.120)
[2017-07-22] MEDS ORDERED: Bisacodyl 5mg EC Tab PO ONE (20:00)
[2017-07-23] MEDS: Heparin25000 units/250ml 1/2NS 25,000 UNITS/250 ML BAG IV PRN (10:15)
[2017-07-23] MEDS: Metoprolol Succinate 25 mg XL Tab PO SCH (10:18)
--- NOTE | 2017-07-23 13:10 | CP.PCM.CON ---
History of Present Illness - History of Present Illness History of Present Illness: Consultation for evaluation of NSTEMI HPI: 47 year old male who presented last week with AWMI/stemi s/p PCI of proximal LAD 100% occlusion , subsequently underwent staged PCI of RCA on [place] [facility] [place] who now presents 4 days post procedure with c/o chest pain right sided associated with mild SOB. TnI on day of PCI of RCA was in the 3 ranges and on this presentation he is noted to have TnI of 4. Daughter called me the day after procedure that he was having fevers and would like to take tylenol. EKG shows some lateral wall dynamic ST changes Review of Systems - Review of Systems Systems not reviewed;Unavailable: Acuity of Condition - Constitutional Constitutional: As Per HPI - EENT Eyes: As Per HPI Ears: As Per HPI Nose/Mouth/Throat: As Per HPI - Cardiovascular Cardiovascular: As Per HPI - Respiratory Respiratory: As Per HPI - Gastrointestinal Gastrointestinal: As Per HPI - Genitourinary Genitourinary: As Per HPI - Reproductive: Male Reproductive:Male: As Per HPI - Musculoskeletal Musculoskeletal: As Per HPI - Integumentary Integumentary: As Per HPI - Neurological Neurological: As Per HPI - Psychiatric Psychiatric: As Per HPI - Endocrine Endocrine: As Per HPI - Hematologic/Lymphatic Hematologic: As Per HPI Past Patient History - Infectious Disease Hx of Infectious Diseases: None - Past Medical History & Family History Past Medical History?: Yes - Past Social History Smoking Status: Never Smoked Alcohol: None Home Situation {Lives}: With Family - CARDIAC Hx Hypertension: Yes - NEUROLOGICAL Hx Paralysis: No - HEENT Hx HEENT Problems: No - RENAL Hx Chronic Kidney Disease: No - ENDOCRINE/METABOLIC Hx Endocrine Disorders: No - HEMATOLOGICAL/ONCOLOGICAL Hx Blood Transfusions: No - INTEGUMENTARY Hx Dermatological Problems: No - MUSCULOSKELETAL/RHEUMATOLOGICAL Hx Falls: No - GASTROINTESTINAL Hx Gastrointestinal Disorders: No - GENITOURINARY/GYNECOLOGICAL Hx Genitourinary Disorders: No - PSYCHIATRIC Hx Substance Use: No - SURGICAL HISTORY Hx Surgeries: Yes Hx Cardiac Catheterization: Yes - ANESTHESIA Hx Anesthesia: Yes Hx Anesthesia Reactions: No Hx Malignant Hyperthermia: No Meds Allergies/Adverse Reactions: Allergies Allergy/AdvReac Type Severity Reaction Status Date / Time No Known Allergies Allergy Verified 07/22/17 02:04 - Medications Medications: Current Medications Aspirin (Ecotrin) 81 mg PO DAILY [facility] Last Admin: 07/23/17 10:17 Dose: 81 mg Clopidogrel Bisulfate (Plavix) 75 mg PO DAILY [facility] Last Admin: 07/23/17 10:17 Dose: 75 mg Famotidine (Pepcid) 20 mg PO BID [facility] Last Admin: 07/23/17 10:17 Dose: 20 mg Heparin Sodium/Sodium Chloride (Heparin 25856 Units/250ml 1/2 Normal Saline) 25 ,000 units in 250 mls @ 9.798 mls/hr IV .Q24H PRN; Protocol; 12 UNITS/KG/HR PRN Reason: ADJUST RATE PER PROTOCOL Last Admin: 07/23/17 10:15 Dose: 12 units/kg/hr, 9.798 mls/hr Lisinopril (Zestril) 10 mg PO DAILY [facility] Last Admin: 07/23/17 10:18 Dose: Not Given Metoprolol Succinate (Toprol Xl) 25 mg PO DAILY [facility] Last Admin: 07/23/17 10:18 Dose: Not Given Morphine Sulfate (Morphine) 2 mg IV Q6 PRN PRN Reason: chest pain Last Admin: 07/22/17 11:12 Dose: 2 mg Rosuvastatin Calcium (Crestor) 10 mg PO [facility] Last Admin: 07/22/17 21:44 Dose: 10 mg Physical Exam - Constitutional Appears: Well - Head Exam Head Exam: ATRAUMATIC, NORMAL INSPECTION, NORMOCEPHALIC - Eye Exam Eye Exam: EOMI, Normal appearance, PERRL Pupil Exam: NORMAL ACCOMODATION, PERRL - ENT Exam ENT Exam: Mucous Membranes Moist, Normal Exam - Neck Exam Neck exam: Positive for: Normal Inspection - Respiratory Exam Respiratory Exam: Clear to Auscultation Bilateral, NORMAL BREATHING PATTERN - Cardiovascular Exam Cardiovascular Exam: REGULAR RHYTHM, RRR, +S1, +S2, Systolic Murmur - GI/Abdominal Exam GI & Abdominal Exam: Normal Bowel Sounds, Soft. absent: Tenderness - Extremities Exam Extremities exam: Positive for: normal inspection - Back Exam Back exam: NORMAL INSPECTION - Neurological Exam Neurological exam: Alert, CN II-XII Intact, Normal Gait, Oriented x3, Reflexes Normal - Psychiatric Exam Psychiatric exam: Normal Affect, Normal Mood - Skin Skin Exam: Dry, Intact, Normal Color, Warm Results - Vital Signs Recent Vital Signs: Last Vital Signs Temp 98.3 F 07/23/17 07:00 Pulse 91 H 07/23/17 07:31 Resp 18 07/23/17 07:00 BP 100/61 07/23/17 07:00 Pulse Ox 97 07/23/17 07:00 - Labs Result Diagrams: 07/22/17 02:09 07/22/17 02:09 Labs: Laboratory Results - last 24 hr 07/22/17 07/22/17 07/22/17 11:23 13:58 19:26 APTT 55 H D 55 H Troponin I 4.1100 H* 07/23/17 06:45 APTT 54 H Troponin I Assessment & Plan (1) Chest pain Assessment and Plan: cont asa, plavix cont bb cont statins add imdur Status: Acute (2) NSTEMI (non-ST elevated myocardial infarction) Assessment and Plan: cont IV heparin plan for non-invasive evaluation Status: Acute (3) CAD (coronary artery disease) Status: Acute
--- NOTE | 2017-07-23 13:14 | CP.PCM.PN ---
Subjective - Date & Time of Evaluation Date of Evaluation: 07/23/17 Time of Evaluation: 13:13 - Subjective Subjective: TnI trending down Objective - Vital Signs/Intake and Output Vital Signs (last 24 hours): Temp Pulse Resp BP Pulse Ox 98.3 F 91 H 18 100/61 97 07/23/17 07:00 07/23/17 07:31 07/23/17 07:00 07/23/17 07:00 07/23/17 07:00 Intake and Output: 07/23/17 07/23/17 06:59 18:59 Intake Total 78.4 250 Balance 78.4 250 - Medications Medications: Current Medications Aspirin (Ecotrin) 81 mg PO DAILY [facility] Last Admin: 07/23/17 10:17 Dose: 81 mg Clopidogrel Bisulfate (Plavix) 75 mg PO DAILY [facility] Last Admin: 07/23/17 10:17 Dose: 75 mg Famotidine (Pepcid) 20 mg PO BID [facility] Last Admin: 07/23/17 10:17 Dose: 20 mg Heparin Sodium/Sodium Chloride (Heparin 87692 Units/250ml 1/2 Normal Saline) 25 ,000 units in 250 mls @ 9.798 mls/hr IV .Q24H PRN; Protocol; 12 UNITS/KG/HR PRN Reason: ADJUST RATE PER PROTOCOL Last Admin: 07/23/17 10:15 Dose: 12 units/kg/hr, 9.798 mls/hr Lisinopril (Zestril) 10 mg PO DAILY [facility] Last Admin: 07/23/17 10:18 Dose: Not Given Metoprolol Succinate (Toprol Xl) 25 mg PO DAILY [facility] Last Admin: 07/23/17 10:18 Dose: Not Given Morphine Sulfate (Morphine) 2 mg IV Q6 PRN PRN Reason: chest pain Last Admin: 07/22/17 11:12 Dose: 2 mg Rosuvastatin Calcium (Crestor) 10 mg PO HS [facility] Last Admin: 07/22/17 21:44 Dose: 10 mg - Labs Labs: 07/22/17 02:09 07/22/17 02:09 PT 14.3 SECONDS (9.7-12.2) H 07/22/17 02:09 INR 1.3 07/22/17 02:09 APTT 54 SECONDS (21-34) H 05/12/18 06:45 - Constitutional Appears: Well - Head Exam Head Exam: ATRAUMATIC, NORMAL INSPECTION, NORMOCEPHALIC - Eye Exam Eye Exam: EOMI, Normal appearance, PERRL Pupil Exam: NORMAL ACCOMODATION, PERRL - ENT Exam ENT Exam: Mucous Membranes Moist, Normal Exam - Neck Exam Neck Exam: Full ROM, Normal Inspection. absent: Lymphadenopathy - Respiratory Exam Respiratory Exam: Clear to Ausculation Bilateral, NORMAL BREATHING PATTERN - Cardiovascular Exam Cardiovascular Exam: REGULAR RHYTHM, +S1, +S2. absent: Murmur - GI/Abdominal Exam GI & Abdominal Exam: Soft, Normal Bowel Sounds. absent: Tenderness - Extremities Exam Extremities Exam: Full ROM, Normal Capillary Refill, Normal Inspection. absent : Joint Swelling, Pedal Edema - Back Exam Back Exam: NORMAL INSPECTION - Neurological Exam Neurological Exam: Alert, Awake, CN II-XII Intact, Normal Gait, Oriented x3 - Psychiatric Exam Psychiatric exam: Normal Affect, Normal Mood - Skin Skin Exam: Dry, Intact, Normal Color, Warm Assessment and Plan (1) Chest pain Status: Acute (2) NSTEMI (non-ST elevated myocardial infarction) Status: Acute (3) CAD (coronary artery disease) Status: Acute
--- NOTE | 2017-07-23 13:30 | CP.PCM.PN ---
Subjective - Date & Time of Evaluation Date of Evaluation: 07/23/17 Time of Evaluation: 13:27 - Subjective Subjective: pt feels beter no chest pain today Objective - Vital Signs/Intake and Output Vital Signs (last 24 hours): Temp Pulse Resp BP Pulse Ox 98.3 F 77 18 100/61 97 07/23/17 07:00 07/23/17 11:52 07/23/17 07:00 07/23/17 07:00 07/23/17 07:00 Intake and Output: 07/23/17 07/23/17 06:59 18:59 Intake Total 78.4 250 Balance 78.4 250 - Medications Medications: Current Medications Aspirin (Ecotrin) 81 mg PO DAILY [facility] Last Admin: 07/23/17 10:17 Dose: 81 mg Clopidogrel Bisulfate (Plavix) 75 mg PO DAILY [facility] Last Admin: 07/23/17 10:17 Dose: 75 mg Famotidine (Pepcid) 20 mg PO BID [facility] Last Admin: 07/23/17 10:17 Dose: 20 mg Heparin Sodium/Sodium Chloride (Heparin 37564 Units/250ml 1/2 Normal Saline) 25 ,000 units in 250 mls @ 9.798 mls/hr IV .Q24H PRN; Protocol; 12 UNITS/KG/HR PRN Reason: ADJUST RATE PER PROTOCOL Last Admin: 07/23/17 10:15 Dose: 12 units/kg/hr, 9.798 mls/hr Isosorbide Mononitrate (Imdur Er) 30 mg PO DAILY [facility] Lisinopril (Zestril) 10 mg PO DAILY [facility] Last Admin: 07/23/17 10:18 Dose: Not Given Metoprolol Succinate (Toprol Xl) 25 mg PO DAILY [facility] Last Admin: 07/23/17 10:18 Dose: Not Given Morphine Sulfate (Morphine) 2 mg IV Q6 PRN PRN Reason: chest pain Last Admin: 07/22/17 11:12 Dose: 2 mg Rosuvastatin Calcium (Crestor) 10 mg PO [facility] Last Admin: 07/22/17 21:44 Dose: 10 mg - Labs Labs: 07/22/17 02:09 07/22/17 02:09 PT 14.3 SECONDS (9.7-12.2) H 07/22/17 02:09 INR 1.3 07/22/17 02:09 APTT 54 SECONDS (21-34) H 07/23/17 06:45 - Constitutional Appears: Non-toxic - Head Exam Head Exam: ATRAUMATIC - Eye Exam Eye Exam: Normal appearance Pupil Exam: NORMAL ACCOMODATION - ENT Exam ENT Exam: Normal Exam - Neck Exam Neck Exam: Full ROM - Respiratory Exam Respiratory Exam: NORMAL BREATHING PATTERN - Cardiovascular Exam Cardiovascular Exam: REGULAR RHYTHM - GI/Abdominal Exam GI & Abdominal Exam: Normal Bowel Sounds - Extremities Exam Extremities Exam: Normal Inspection - Neurological Exam Neurological Exam: Alert, Oriented x3 - Psychiatric Exam Psychiatric exam: Normal Affect - Skin Skin Exam: Normal Color - Additional Findings Additional findings: ct no pe slight pericardial efusion triponin was hi Assessment and Plan - Assessment and Plan (Free Text) Assessment: ac chest pain cad s/p stebts Plan: repeat triponin cont treatment
[2017-07-24 07:35] LABS: BASO % 0.6 % (0.0-2.0); EOS # 0.2 K/uL (0.0-0.7); EOS % 2.8 % (0.0-4.0); HEMOGLOBIN 12.1 g/dL (12.0-18.0); LYMPH # 1.5 K/uL (1.0-4.3); LYMPH % 26.9 % (20.0-40.0); MEAN CELL VOLUME 87.9 fL (80.0-94.0); MEAN CORPUSCULAR HEMOGLOBIN 31.3 pg (27.0-31.0); MEAN CORPUSCULAR HGB CONC 35.6 g/dL (33.0-37.0); MEAN PLATELET VOLUME 9.2 fL (7.2-11.7); MONO # 0.6 K/uL (0.0-0.8); MONO % 10.2 % (0.0-10.0); NEUT # 3.3 K/uL (1.8-7.0); NEUT % 59.5 % (50.0-75.0); RBC 3.87 Mil/uL (4.40-5.90); RED CELL DISTRIBUTION WIDTH 12.4 % (11.5-14.5); WHITE BLOOD COUNT 5.6 K/uL (4.8-10.8)
[2017-07-24 07:57] LABS: ALBUMIN 3.6 g/dL (3.5-5.0); ALT/SGPT 24 U/L (21-72); AST/SGOT 29 U/L (17-59); BLOOD UREA NITROGEN 22 mg/dL (9-20); CALCIUM 9.2 mg/dl (8.6-10.4); GFR AFRICAN-AMERICAN > 60; GFR NON-AFRICAN AMERICAN > 60
[2017-07-24] MEDS: Metoprolol Succinate 25 mg XL Tab PO SCH (09:37)
--- NOTE | 2017-07-24 11:26 | CP.PCM.PN ---
Subjective - Date & Time of Evaluation Date of Evaluation: 07/24/17 Time of Evaluation: 11:23 - Subjective Subjective: less chest pain now feels beter Objective - Vital Signs/Intake and Output Vital Signs (last 24 hours): Temp Pulse Resp BP Pulse Ox 98.9 F 94 H 18 117/72 96 07/24/17 07:00 07/24/17 09:56 07/24/17 07:00 07/24/17 09:56 07/24/17 07:00 - Medications Medications: Current Medications Acetaminophen (Tylenol 325mg Tab) 650 mg PO Q6 PRN PRN Reason: Pain, moderate (4-7) Last Admin: 07/23/17 18:59 Dose: 650 mg Aspirin (Ecotrin) 81 mg PO DAILY [facility] Last Admin: 07/24/17 09:37 Dose: 81 mg Clopidogrel Bisulfate (Plavix) 75 mg PO DAILY [facility] Last Admin: 07/24/17 09:37 Dose: 75 mg Famotidine (Pepcid) 20 mg PO BID [facility] Last Admin: 07/24/17 09:37 Dose: 20 mg Heparin Sodium/Sodium Chloride (Heparin 22513 Units/250ml 1/2 Normal Saline) 25 ,000 units in 250 mls @ 9.798 mls/hr IV .Q24H PRN; Protocol; 12 UNITS/KG/HR PRN Reason: ADJUST RATE PER PROTOCOL Last Admin: 07/23/17 10:15 Dose: 12 units/kg/hr, 9.798 mls/hr Isosorbide Mononitrate (Imdur Er) 30 mg PO DAILY [facility] Last Admin: 07/24/17 09:37 Dose: 30 mg Lisinopril (Zestril) 10 mg PO DAILY [facility] Last Admin: 07/24/17 09:37 Dose: 10 mg Metoprolol Succinate (Toprol Xl) 25 mg PO DAILY [facility] Last Admin: 07/24/17 09:37 Dose: 25 mg Morphine Sulfate (Morphine) 2 mg IV Q6 PRN PRN Reason: chest pain Last Admin: 07/22/17 11:12 Dose: 2 mg Rosuvastatin Calcium (Crestor) 10 mg PO HS [facility] Last Admin: 07/23/17 22:53 Dose: 10 mg - Labs Labs: 07/24/17 07:27 07/24/17 07:27 PT 14.3 SECONDS (9.7-12.2) H 07/22/17 02:09 INR 1.3 07/22/17 02:09 APTT 55 SECONDS (21-34) H 07/24/17 07:27 - Constitutional Appears: Non-toxic - Head Exam Head Exam: ATRAUMATIC - Eye Exam Eye Exam: Normal appearance Pupil Exam: NORMAL ACCOMODATION - ENT Exam ENT Exam: Mucous Membranes Moist - Neck Exam Neck Exam: Full ROM, Normal Inspection - Respiratory Exam Respiratory Exam: Clear to Ausculation Bilateral - Cardiovascular Exam Cardiovascular Exam: REGULAR RHYTHM - GI/Abdominal Exam GI & Abdominal Exam: Normal Bowel Sounds - Rectal Exam Rectal Exam: NORMAL INSPECTION - Exam Exam: NORMAL INSPECTION - Back Exam Back Exam: NORMAL INSPECTION - Neurological Exam Neurological Exam: Alert, Normal Gait - Psychiatric Exam Psychiatric exam: Normal Affect - Skin Skin Exam: Normal Color Assessment and Plan - Assessment and Plan (Free Text) Assessment: chest pain cad nasal bleeding today Plan: cont treatment stress test in am
--- NOTE | 2017-07-24 12:36 | CARD ---
APPROVED REPORT EKG Measurement Heart [id number] <Conclusion> Normal sinus rhythm Inferior infarct, age undetermined Anterior infarct, age undetermined T wave abnormality, consider lateral ischemia Abnormal ECG
--- NOTE | 2017-07-24 12:37 | CARD ---
APPROVED REPORT EKG Measurement Heart [id number] <Conclusion> Normal sinus rhythm Inferior infarct, age undetermined Anterior infarct, age undetermined T wave abnormality, consider lateral ischemia Abnormal ECG
[2017-07-24] MEDS: Heparin25000 units/250ml 1/2NS 25,000 UNITS/250 ML BAG IV PRN (14:26)
[2017-07-25 06:34] LABS: BASO % 0.6 % (0.0-2.0); EOS # 0.2 K/uL (0.0-0.7); EOS % 2.8 % (0.0-4.0); HEMOGLOBIN 12.4 g/dL (12.0-18.0); LYMPH # 1.4 K/uL (1.0-4.3); LYMPH % 24.4 % (20.0-40.0); MEAN CELL VOLUME 88.2 fL (80.0-94.0); MEAN CORPUSCULAR HEMOGLOBIN 31.8 pg (27.0-31.0); MONO # 0.6 K/uL (0.0-0.8); MONO % 10.2 % (0.0-10.0); NEUT # 3.7 K/uL (1.8-7.0); RBC 3.9 Mil/uL (4.40-5.90); RED CELL DISTRIBUTION WIDTH 12.3 % (11.5-14.5); WHITE BLOOD COUNT 5.9 K/uL (4.8-10.8)
[2017-07-25 07:18] LABS: ALB/GLOB RATIO 0.9 (1.0-2.1); ALBUMIN 3.5 g/dL (3.5-5.0); ALT/SGPT 45 U/L (21-72); AST/SGOT 34 U/L (17-59); BLOOD UREA NITROGEN 24 mg/dL (9-20); CALCIUM 9.5 mg/dl (8.6-10.4); GFR AFRICAN-AMERICAN > 60; GFR NON-AFRICAN AMERICAN > 60
--- NOTE | 2017-07-25 09:01 | CP.PCM.PN ---
Subjective - Date & Time of Evaluation Date of Evaluation: 07/25/17 Time of Evaluation: 08:59 - Subjective Subjective: stable no more chest pain TnI down to 2.61 Objective - Vital Signs/Intake and Output Vital Signs (last 24 hours): Temp Pulse Resp BP Pulse Ox 98.6 F 72 18 107/71 97 07/25/17 07:25 07/25/17 08:00 07/25/17 07:25 07/25/17 07:25 07/25/17 07:25 Intake and Output: 07/25/17 07/25/17 06:59 18:59 Intake Total 78.8 Output Total 800 Balance -721.2 - Medications Medications: Current Medications Acetaminophen (Tylenol 325mg Tab) 650 mg PO Q6 PRN PRN Reason: Pain, moderate (4-7) Last Admin: 07/23/17 18:59 Dose: 650 mg Aspirin (Ecotrin) 81 mg PO DAILY [facility] Last Admin: 07/24/17 09:37 Dose: 81 mg Clopidogrel Bisulfate (Plavix) 75 mg PO DAILY [facility] Last Admin: 07/24/17 09:37 Dose: 75 mg Famotidine (Pepcid) 20 mg PO BID [facility] Last Admin: 07/24/17 18:42 Dose: 20 mg Isosorbide Mononitrate (Imdur Er) 30 mg PO DAILY [facility] Last Admin: 07/24/17 09:37 Dose: 30 mg Lisinopril (Zestril) 10 mg PO DAILY [facility] Last Admin: 07/24/17 09:37 Dose: 10 mg Metoprolol Succinate (Toprol Xl) 25 mg PO DAILY [facility] Last Admin: 07/24/17 09:37 Dose: 25 mg Morphine Sulfate (Morphine) 2 mg IV Q6 PRN PRN Reason: chest pain Last Admin: 07/22/17 11:12 Dose: 2 mg Rosuvastatin Calcium (Crestor) 10 mg PO HS [facility] Last Admin: 07/24/17 22:41 Dose: 10 mg Tamsulosin HCl (Flomax) 0.4 mg PO DAILY [facility] Last Admin: 07/24/17 11:39 Dose: 0.4 mg - Labs Labs: 07/25/17 06:23 07/25/17 06:23 PT 14.3 SECONDS (9.7-12.2) H 07/22/17 02:09 INR 1.3 07/22/17 02:09 APTT 52 SECONDS (21-34) H 07/25/17 06:23 - Constitutional Appears: Well - Head Exam Head Exam: ATRAUMATIC, NORMAL INSPECTION, NORMOCEPHALIC - Eye Exam Eye Exam: EOMI, Normal appearance, PERRL Pupil Exam: NORMAL ACCOMODATION, PERRL - ENT Exam ENT Exam: Mucous Membranes Moist, Normal Exam - Neck Exam Neck Exam: Full ROM, Normal Inspection. absent: Lymphadenopathy - Respiratory Exam Respiratory Exam: Clear to Ausculation Bilateral, NORMAL BREATHING PATTERN - Cardiovascular Exam Cardiovascular Exam: REGULAR RHYTHM, +S1, +S2. absent: Murmur - GI/Abdominal Exam GI & Abdominal Exam: Soft, Normal Bowel Sounds. absent: Tenderness - Extremities Exam Extremities Exam: Full ROM, Normal Capillary Refill, Normal Inspection. absent : Joint Swelling, Pedal Edema - Back Exam Back Exam: NORMAL INSPECTION - Neurological Exam Neurological Exam: Alert, Awake, CN II-XII Intact, Normal Gait, Oriented x3 - Psychiatric Exam Psychiatric exam: Normal Affect, Normal Mood - Skin Skin Exam: Dry, Intact, Normal Color, Warm Assessment and Plan (1) Chest pain Assessment & Plan: TnI trending down cont dapt cont bb cont statins add nitrates Status: Acute (2) NSTEMI (non-ST elevated myocardial infarction) Assessment & Plan: cont with IV heparin trend TnI Status: Acute (3) CAD (coronary artery disease) Assessment & Plan: s/p PCI of LAD ( STEMI ) s/p staged PCI of RCA had severe distal LCx disease ( small vessel not treated ) Status: Acute
[2017-07-25] MEDS: Metoprolol Succinate 25 mg XL Tab PO SCH (09:09)
--- NOTE | 2017-07-25 17:40 | CP.PCM.PN ---
Subjective - Date & Time of Evaluation Date of Evaluation: 07/25/17 Time of Evaluation: 17:37 - Subjective Subjective: pt feels very weeke light headed canot sleep roome tv is loud Objective - Vital Signs/Intake and Output Vital Signs (last 24 hours): Temp Pulse Resp BP Pulse Ox 98.3 F 99 H 20 99/59 L 97 07/25/17 15:52 07/25/17 15:52 07/25/17 15:52 07/25/17 15:52 07/25/17 15:52 Intake and Output: 07/25/17 07/25/17 06:59 18:59 Intake Total 557.1 Output Total 800 Balance -242.9 - Medications Medications: Current Medications Acetaminophen (Tylenol 325mg Tab) 650 mg PO Q6 PRN PRN Reason: Pain, moderate (4-7) Last Admin: 07/23/17 18:59 Dose: 650 mg Aspirin (Ecotrin) 81 mg PO DAILY [facility] Last Admin: 07/25/17 09:09 Dose: 81 mg Clopidogrel Bisulfate (Plavix) 75 mg PO DAILY [facility] Last Admin: 07/25/17 09:09 Dose: 75 mg Famotidine (Pepcid) 20 mg PO BID [facility] Last Admin: 07/25/17 09:09 Dose: 20 mg Isosorbide Mononitrate (Imdur Er) 30 mg PO DAILY [facility] Last Admin: 07/25/17 09:09 Dose: 30 mg Metoprolol Succinate (Toprol Xl) 25 mg PO DAILY [facility] Last Admin: 07/25/17 09:09 Dose: 25 mg Rosuvastatin Calcium (Crestor) 10 mg PO [facility] Last Admin: 07/24/17 22:41 Dose: 10 mg Tamsulosin HCl (Flomax) 0.4 mg PO DAILY [facility] Last Admin: 07/25/17 09:09 Dose: 0.4 mg - Labs Labs: 07/25/17 06:23 07/25/17 06:23 PT 14.3 SECONDS (9.7-12.2) H 07/22/17 02:09 INR 1.3 07/22/17 02:09 APTT 52 SECONDS (21-34) H 07/25/17 06:23 - Constitutional Appears: Non-toxic - Eye Exam Eye Exam: Normal appearance Pupil Exam: NORMAL ACCOMODATION - ENT Exam ENT Exam: Mucous Membranes Moist - Neck Exam Neck Exam: Full ROM - Respiratory Exam Respiratory Exam: Clear to Ausculation Bilateral - Cardiovascular Exam Cardiovascular Exam: REGULAR RHYTHM - GI/Abdominal Exam GI & Abdominal Exam: Normal Bowel Sounds - Rectal Exam Rectal Exam: Deferred - Extremities Exam Extremities Exam: Normal Inspection - Back Exam Back Exam: NORMAL INSPECTION - Neurological Exam Neurological Exam: Alert, Oriented x3 - Psychiatric Exam Psychiatric exam: Normal Mood - Skin Skin Exam: Normal Color Assessment and Plan - Assessment and Plan (Free Text) Assessment: hypotensive lightheaded weeke less chest pain cad Plan: cut down med
[2017-07-25] MEDS ORDERED: Heparin25000 units/250ml 1/2NS 25,000 UNITS/250 ML BAG IV PRN (19:35)
--- NOTE | 2017-07-26 10:43 | CP.PCM.PN ---
Subjective - Date & Time of Evaluation Date of Evaluation: 07/26/17 Time of Evaluation: 10:41 - Subjective Subjective: cp improving feelng weak and lethargic Objective - Vital Signs/Intake and Output Vital Signs (last 24 hours): Temp Pulse Resp BP Pulse Ox 98.5 F 75 20 100/65 97 07/26/17 08:45 07/26/17 08:45 07/26/17 08:45 07/26/17 08:45 07/26/17 08:45 Intake and Output: 07/26/17 07/26/17 06:59 18:59 Intake Total 406.8 Balance 406.8 - Medications Medications: Current Medications Acetaminophen (Tylenol 325mg Tab) 650 mg PO Q6 PRN PRN Reason: Pain, moderate (4-7) Last Admin: 07/23/17 18:59 Dose: 650 mg Aspirin (Ecotrin) 81 mg PO DAILY [facility] Last Admin: 07/25/17 09:09 Dose: 81 mg Clopidogrel Bisulfate (Plavix) 75 mg PO DAILY [facility] Last Admin: 07/25/17 09:09 Dose: 75 mg Famotidine (Pepcid) 20 mg PO BID [facility] Last Admin: 07/25/17 19:04 Dose: 20 mg Heparin Sodium/Sodium Chloride (Heparin 57563 Units/250ml 1/2 Normal Saline) 25 ,000 units in 250 mls @ 9.798 mls/hr IV .Q24H PRN; Protocol; 12 UNITS/KG/HR PRN Reason: PROTOCOL Last Admin: 07/25/17 20:29 Dose: 12 units/kg/hr, 9.798 mls/hr Isosorbide Mononitrate (Imdur Er) 30 mg PO DAILY [facility] Last Admin: 07/25/17 09:09 Dose: 30 mg Metoprolol Succinate (Toprol Xl) 25 mg PO DAILY [facility] Last Admin: 07/25/17 09:09 Dose: 25 mg Rosuvastatin Calcium (Crestor) 10 mg PO HS [facility] Last Admin: 07/25/17 22:02 Dose: 10 mg Tamsulosin HCl (Flomax) 0.4 mg PO DAILY [facility] Last Admin: 07/25/17 09:09 Dose: 0.4 mg - Labs Labs: 07/25/17 06:23 07/25/17 06:23 PT 14.3 SECONDS (9.7-12.2) H 07/22/17 02:09 INR 1.3 07/22/17 02:09 APTT 51 SECONDS (21-34) H 07/26/17 04:16 - Constitutional Appears: Well - Head Exam Head Exam: ATRAUMATIC, NORMAL INSPECTION, NORMOCEPHALIC - Eye Exam Eye Exam: EOMI, Normal appearance, PERRL Pupil Exam: NORMAL ACCOMODATION, PERRL - ENT Exam ENT Exam: Mucous Membranes Moist, Normal Exam - Neck Exam Neck Exam: Full ROM, Normal Inspection. absent: Lymphadenopathy - Respiratory Exam Respiratory Exam: Clear to Ausculation Bilateral, NORMAL BREATHING PATTERN - Cardiovascular Exam Cardiovascular Exam: REGULAR RHYTHM, +S1, +S2. absent: Murmur - GI/Abdominal Exam GI & Abdominal Exam: Soft, Normal Bowel Sounds. absent: Tenderness - Extremities Exam Extremities Exam: Full ROM, Normal Capillary Refill, Normal Inspection. absent : Joint Swelling, Pedal Edema - Back Exam Back Exam: NORMAL INSPECTION - Neurological Exam Neurological Exam: Alert, Awake, CN II-XII Intact, Normal Gait, Oriented x3 - Psychiatric Exam Psychiatric exam: Normal Affect, Normal Mood - Skin Skin Exam: Dry, Intact, Normal Color, Warm Assessment and Plan (1) Chest pain Assessment & Plan: etiology unclear stress test in am tnI trending down Status: Acute (2) NSTEMI (non-ST elevated myocardial infarction) Assessment & Plan: cont dapt cont statins, bb cont nitrates Status: Acute (3) CAD (coronary artery disease) Assessment & Plan: add ranexa Status: Acute
[2017-07-26] MEDS: Metoprolol Succinate 25 mg XL Tab PO SCH (11:03)
--- NOTE | 2017-07-26 11:40 | CP.PCM.PN ---
Subjective - Date & Time of Evaluation Date of Evaluation: 07/26/17 Time of Evaluation: 11:37 - Subjective Subjective: NO CHEST PAIN TODAY FEELS BETER Objective - Vital Signs/Intake and Output Vital Signs (last 24 hours): Temp Pulse Resp BP Pulse Ox 98.5 F 75 20 100/65 97 07/26/17 08:45 07/26/17 08:45 07/26/17 08:45 07/26/17 08:45 07/26/17 08:45 Intake and Output: 07/26/17 07/26/17 06:59 18:59 Intake Total 406.8 Balance 406.8 - Medications Medications: Current Medications Acetaminophen (Tylenol 325mg Tab) 650 mg PO Q6 PRN PRN Reason: Pain, moderate (4-7) Last Admin: 07/23/17 18:59 Dose: 650 mg Aspirin (Ecotrin) 81 mg PO DAILY [facility] Last Admin: 07/26/17 11:03 Dose: 81 mg Clopidogrel Bisulfate (Plavix) 75 mg PO DAILY [facility] Last Admin: 07/26/17 11:03 Dose: 75 mg Famotidine (Pepcid) 20 mg PO BID [facility] Last Admin: 07/26/17 11:05 Dose: 20 mg Heparin Sodium/Sodium Chloride (Heparin 78378 Units/250ml 1/2 Normal Saline) 25 ,000 units in 250 mls @ 9.798 mls/hr IV .Q24H PRN; Protocol; 12 UNITS/KG/HR PRN Reason: PROTOCOL Last Admin: 07/25/17 20:29 Dose: 12 units/kg/hr, 9.798 mls/hr Isosorbide Mononitrate (Imdur Er) 30 mg PO DAILY [facility] Last Admin: 07/26/17 11:03 Dose: 30 mg Metoprolol Succinate (Toprol Xl) 25 mg PO DAILY [facility] Last Admin: 07/26/17 11:03 Dose: 25 mg Rosuvastatin Calcium (Crestor) 10 mg PO HS [facility] Last Admin: 07/25/17 22:02 Dose: 10 mg Tamsulosin HCl (Flomax) 0.4 mg PO DAILY [facility] Last Admin: 07/26/17 11:03 Dose: 0.4 mg - Labs Labs: 07/25/17 06:23 07/25/17 06:23 PT 14.3 SECONDS (9.7-12.2) H 07/22/17 02:09 INR 1.3 07/22/17 02:09 APTT 51 SECONDS (21-34) H 07/26/17 04:16 - Constitutional Appears: Non-toxic - Head Exam Head Exam: ATRAUMATIC - Eye Exam Eye Exam: Normal appearance - ENT Exam ENT Exam: Mucous Membranes Moist - Neck Exam Neck Exam: Full ROM - Respiratory Exam Respiratory Exam: Clear to Ausculation Bilateral - Cardiovascular Exam Cardiovascular Exam: REGULAR RHYTHM - GI/Abdominal Exam GI & Abdominal Exam: Normal Bowel Sounds - Rectal Exam Rectal Exam: Deferred - Extremities Exam Extremities Exam: Full ROM - Back Exam Back Exam: NORMAL INSPECTION - Neurological Exam Neurological Exam: Normal Gait, Oriented x3 - Skin Skin Exam: Normal Color Assessment and Plan - Assessment and Plan (Free Text) Assessment: CAD RECURENT CHEST PAIN S/P STINTS RSIDE CHEST MUSCLE PAIN Plan: AWAT STRESS TEST CONT SAME TREATMENT
[2017-07-26] MEDS: Heparin25000 units/250ml 1/2NS 25,000 UNITS/250 ML BAG IV PRN (21:57)
[2017-07-27 06:30] LABS: HEMOGLOBIN 12.8 g/dL (12.0-18.0); MEAN CELL VOLUME 88.7 fL (80.0-94.0); MEAN CORPUSCULAR HEMOGLOBIN 31.5 pg (27.0-31.0); MEAN CORPUSCULAR HGB CONC 35.5 g/dL (33.0-37.0); MEAN PLATELET VOLUME 9.1 fL (7.2-11.7); RBC 4.05 Mil/uL (4.40-5.90); RED CELL DISTRIBUTION WIDTH 12.4 % (11.5-14.5); WHITE BLOOD COUNT 6.7 K/uL (4.8-10.8)
--- NOTE | 2017-07-27 10:29 | CP.PCM.PN ---
Subjective - Date & Time of Evaluation Date of Evaluation: 07/27/17 Time of Evaluation: 10:27 - Subjective Subjective: cad recurent chest pain geting stress test today Objective - Vital Signs/Intake and Output Vital Signs (last 24 hours): Temp Pulse Resp BP Pulse Ox 98.0 F 71 18 106/69 97 07/27/17 08:35 07/27/17 08:35 07/27/17 08:35 07/27/17 08:35 07/27/17 08:35 Intake and Output: 07/27/17 07/27/17 06:59 18:59 Intake Total 448.4 Output Total 700 Balance -251.6 - Medications Medications: Current Medications Acetaminophen (Tylenol 325mg Tab) 650 mg PO Q6 PRN PRN Reason: Pain, moderate (4-7) Last Admin: 07/23/17 18:59 Dose: 650 mg Aspirin (Ecotrin) 81 mg PO DAILY [facility] Last Admin: 07/26/17 11:03 Dose: 81 mg Clopidogrel Bisulfate (Plavix) 75 mg PO DAILY [facility] Last Admin: 07/26/17 11:03 Dose: 75 mg Famotidine (Pepcid) 20 mg PO BID [facility] Last Admin: 07/26/17 18:41 Dose: 20 mg Heparin Sodium/Sodium Chloride (Heparin 31279 Units/250ml 1/2 Normal Saline) 25 ,000 units in 250 mls @ 9.798 mls/hr IV .Q24H PRN; Protocol; 12 UNITS/KG/HR PRN Reason: PROTOCOL Last Admin: 07/26/17 21:57 Dose: 12 units/kg/hr, 9.798 mls/hr Isosorbide Mononitrate (Imdur Er) 30 mg PO DAILY [facility] Last Admin: 07/26/17 11:03 Dose: 30 mg Metoprolol Succinate (Toprol Xl) 25 mg PO DAILY [facility] Last Admin: 07/26/17 11:03 Dose: 25 mg Rosuvastatin Calcium (Crestor) 10 mg PO HS [facility] Last Admin: 07/26/17 21:56 Dose: 10 mg Tamsulosin HCl (Flomax) 0.4 mg PO DAILY [facility] Last Admin: 07/26/17 11:03 Dose: 0.4 mg - Labs Labs: 07/27/17 06:23 07/25/17 06:23 PT 14.3 SECONDS (9.7-12.2) H 07/22/17 02:09 INR 1.3 07/22/17 02:09 APTT 51 SECONDS (21-34) H 07/26/17 04:16 - Constitutional Appears: Non-toxic - Head Exam Head Exam: NORMAL INSPECTION - Eye Exam Eye Exam: Normal appearance Pupil Exam: NORMAL ACCOMODATION - ENT Exam ENT Exam: Normal Exam - Neck Exam Neck Exam: Full ROM - Respiratory Exam Respiratory Exam: NORMAL BREATHING PATTERN - Cardiovascular Exam Cardiovascular Exam: REGULAR RHYTHM - GI/Abdominal Exam GI & Abdominal Exam: Normal Bowel Sounds - Exam Exam: NORMAL INSPECTION - Extremities Exam Extremities Exam: Full ROM - Back Exam Back Exam: NORMAL INSPECTION - Neurological Exam Neurological Exam: Awake, Normal Gait, Oriented x3 - Psychiatric Exam Psychiatric exam: Normal Affect - Skin Skin Exam: Dry Assessment and Plan - Assessment and Plan (Free Text) Assessment: cad s/p stents recurent chest pain Plan: stress test today
[2017-07-27] MEDS: Metoprolol Succinate 25 mg XL Tab PO SCH (11:09)
--- NOTE | 2017-07-27 12:54 | CP.PCM.PN ---
<Seymour Fernando - Last Filed: 07/27/17 21:19> Subjective - Date & Time of Evaluation Date of Evaluation: 07/27/17 Time of Evaluation: 11:15 - Subjective Subjective: Seymour Fernando PGY1 Cardiology Progress Note for Dr. Lopez Patient was seen and examined. He underwent stress test and tolerated it well achieving 8 METS and achieving >80% of maximum HR with no chest pain or EKG changes. Patient shortness of breath but complaining of mild right chest wall pain. Objective - Vital Signs/Intake and Output Vital Signs (last 24 hours): Temp Pulse Resp BP Pulse Ox 98.0 F 89 18 106/69 97 07/27/17 08:35 07/27/17 11:44 07/27/17 08:35 07/27/17 08:35 07/27/17 08:35 Intake and Output: 07/27/17 07/27/17 06:59 18:59 Intake Total 448.4 Output Total 700 Balance -251.6 - Medications Medications: Current Medications Acetaminophen (Tylenol 325mg Tab) 650 mg PO Q6 PRN PRN Reason: Pain, moderate (4-7) Last Admin: 07/23/17 18:59 Dose: 650 mg Aspirin (Ecotrin) 81 mg PO DAILY [facility] Last Admin: 07/27/17 11:10 Dose: 81 mg Clopidogrel Bisulfate (Plavix) 75 mg PO DAILY [facility] Last Admin: 07/27/17 11:09 Dose: 75 mg Famotidine (Pepcid) 20 mg PO BID [facility] Last Admin: 07/27/17 11:09 Dose: 20 mg Heparin Sodium/Sodium Chloride (Heparin 08229 Units/250ml 1/2 Normal Saline) 25 ,000 units in 250 mls @ 9.798 mls/hr IV .Q24H PRN; Protocol; 12 UNITS/KG/HR PRN Reason: PROTOCOL Last Admin: 07/26/17 21:57 Dose: 12 units/kg/hr, 9.798 mls/hr Isosorbide Mononitrate (Imdur Er) 30 mg PO DAILY [facility] Last Admin: 07/27/17 11:56 Dose: 30 mg Metoprolol Succinate (Toprol Xl) 25 mg PO DAILY [facility] Last Admin: 07/27/17 11:09 Dose: 25 mg Rosuvastatin Calcium (Crestor) 10 mg PO HS [facility] Last Admin: 07/26/17 21:56 Dose: 10 mg Tamsulosin HCl (Flomax) 0.4 mg PO DAILY [facility] Last Admin: 07/27/17 11:09 Dose: 0.4 mg - Labs Labs: 07/27/17 06:23 07/25/17 06:23 PT 14.3 SECONDS (9.7-12.2) H 07/22/17 02:09 INR 1.3 07/22/17 02:09 APTT 60 SECONDS (21-34) H D 07/27/17 11:52 - Constitutional Appears: Well, Non-toxic - Head Exam Head Exam: NORMAL INSPECTION - Eye Exam Eye Exam: EOMI - ENT Exam ENT Exam: Mucous Membranes Moist - Respiratory Exam Respiratory Exam: Clear to Ausculation Bilateral, NORMAL BREATHING PATTERN - Cardiovascular Exam Cardiovascular Exam: RRR, +S1, +S2 - GI/Abdominal Exam GI & Abdominal Exam: Soft. absent: Distended, Tenderness - Extremities Exam Extremities Exam: Full ROM, Normal Inspection - Back Exam Back Exam: NORMAL INSPECTION - Neurological Exam Neurological Exam: Alert, Awake - Psychiatric Exam Psychiatric exam: Normal Affect, Normal Mood - Skin Skin Exam: Normal Color Assessment and Plan - Assessment and Plan (Free Text) Assessment: 47 [place] M with a PMH of CAD with recent PTCA LAD stent (1 BANG) on 07/14 and RCA stents (3 BANG) on 07/18 who presented with persistent chest pain Plan: 1. NSTEMI - cont nitrates - cont Crestor and Toprol - on heparin drip - cont ASA and Plavix - troponin trending down - underwent stress test and achieved 8 METS and tolerated >80% of maximum HR with no chest pain or EKG changes 2. CAD - ranexa added - cont nitrate, BB and statin - cont ASA Pepcid for GI ppx Patient was evaluated and discussed with Dr. Lopez <Deo Lopez - Last Filed: 07/28/17 08:41> Objective - Vital Signs/Intake and Output Vital Signs (last 24 hours): Temp Pulse Resp BP Pulse Ox 98.0 F 72 20 98/62 L 96 07/28/17 01:45 07/28/17 04:06 07/28/17 01:45 07/28/17 01:45 07/28/17 01:45 Intake and Output: 07/28/17 07/28/17 06:59 18:59 Intake Total 1126.8 Output Total 550 Balance 576.8 - Medications Medications: Current Medications Acetaminophen (Tylenol 325mg Tab) 650 mg PO Q6 PRN PRN Reason: Pain, moderate (4-7) Last Admin: 07/23/17 18:59 Dose: 650 mg Aspirin (Ecotrin) 81 mg PO DAILY [facility] Last Admin: 07/27/17 11:10 Dose: 81 mg Clopidogrel Bisulfate (Plavix) 75 mg PO DAILY [facility] Last Admin: 07/27/17 11:09 Dose: 75 mg Famotidine (Pepcid) 20 mg PO BID [facility] Last Admin: 07/27/17 18:47 Dose: 20 mg Heparin Sodium/Sodium Chloride (Heparin 92945 Units/250ml 1/2 Normal Saline) 25 ,000 units in 250 mls @ 9.798 mls/hr IV .Q24H PRN; Protocol; 12 UNITS/KG/HR PRN Reason: PROTOCOL Last Admin: 07/28/17 01:32 Dose: 12 units/kg/hr, 9.798 mls/hr Isosorbide Mononitrate (Imdur Er) 30 mg PO DAILY [facility] Last Admin: 07/27/17 11:56 Dose: 30 mg Metoprolol Succinate (Toprol Xl) 25 mg PO DAILY [facility] Last Admin: 07/27/17 11:09 Dose: 25 mg Ranolazine (Ranexa) 500 mg PO BID [facility] Last Admin: 07/27/17 18:47 Dose: 500 mg Rosuvastatin Calcium (Crestor) 10 mg PO HS [facility] Last Admin: 07/27/17 21:45 Dose: 10 mg Tamsulosin HCl (Flomax) 0.4 mg PO DAILY [facility] Last Admin: 07/27/17 11:09 Dose: 0.4 mg - Labs Labs: 07/28/17 06:30 07/25/17 06:23 PT 14.3 SECONDS (9.7-12.2) H 07/22/17 02:09 INR 1.3 07/22/17 02:09 APTT 51 SECONDS (21-34) H D 07/28/17 06:30 Assessment and Plan (1) Chest pain Status: Acute (2) NSTEMI (non-ST elevated myocardial infarction) Status: Acute (3) CAD (coronary artery disease) Status: Acute Attending/Attestation - Attestation I have personally seen and examined this patient.: Yes I have fully participated in the care of the patient.: Yes I have reviewed all pertinent clinical information, including history, physical exam and plan: Yes Notes (Text): 07/28/17 08:40 dc heparin add ranexa stress test -ve for ischemia stable to dc home in 24 hours
[2017-07-27] MEDS: Ranolazine 500 mg Extended Release Tablets PO SCH (18:47)
[2017-07-28] MEDS: Heparin25000 units/250ml 1/2NS 25,000 UNITS/250 ML BAG IV PRN (01:32)
[2017-07-28 01:54] VITALS: TEMP 98
[2017-07-28 06:39] LABS: HEMOGLOBIN 13.2 g/dL (12.0-18.0); MEAN CELL VOLUME 89.1 fL (80.0-94.0); MEAN CORPUSCULAR HEMOGLOBIN 31.4 pg (27.0-31.0); MEAN CORPUSCULAR HGB CONC 35.2 g/dL (33.0-37.0); MEAN PLATELET VOLUME 8.8 fL (7.2-11.7); RBC 4.21 Mil/uL (4.40-5.90); RED CELL DISTRIBUTION WIDTH 12.3 % (11.5-14.5); WHITE BLOOD COUNT 6.2 K/uL (4.8-10.8)
--- NOTE | 2017-07-28 08:40 | CP.PCM.PN ---
Subjective - Date & Time of Evaluation Date of Evaluation: 07/28/17 Time of Evaluation: 08:40 - Subjective Subjective: Seymour Fernando PGY1 Cardiology Progress Note for Dr. Lopez Patient was seen and examined. Patient denies shortness of breath but complaining of mild right chest wall pain. 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 he denies fevers/chills, n/v/d, or pleuritic chest pain. Objective - Vital Signs/Intake and Output Vital Signs (last 24 hours): Temp Pulse Resp BP Pulse Ox 98.0 F 72 20 98/62 L 96 07/28/17 01:45 07/28/17 04:06 07/28/17 01:45 07/28/17 01:45 07/28/17 01:45 Intake and Output: 07/28/17 07/28/17 06:59 18:59 Intake Total 1126.8 Output Total 550 Balance 576.8 - Medications Medications: Current Medications Acetaminophen (Tylenol 325mg Tab) 650 mg PO Q6 PRN PRN Reason: Pain, moderate (4-7) Last Admin: 07/23/17 18:59 Dose: 650 mg Aspirin (Ecotrin) 81 mg PO DAILY [facility] Last Admin: 07/27/17 11:10 Dose: 81 mg Clopidogrel Bisulfate (Plavix) 75 mg PO DAILY [facility] Last Admin: 07/27/17 11:09 Dose: 75 mg Famotidine (Pepcid) 20 mg PO BID [facility] Last Admin: 07/27/17 18:47 Dose: 20 mg Heparin Sodium/Sodium Chloride (Heparin 47470 Units/250ml 1/2 Normal Saline) 25 ,000 units in 250 mls @ 9.798 mls/hr IV .Q24H PRN; Protocol; 12 UNITS/KG/HR PRN Reason: PROTOCOL Last Admin: 07/28/17 01:32 Dose: 12 units/kg/hr, 9.798 mls/hr Isosorbide Mononitrate (Imdur Er) 30 mg PO DAILY [facility] Last Admin: 07/27/17 11:56 Dose: 30 mg Metoprolol Succinate (Toprol Xl) 25 mg PO DAILY [facility] Last Admin: 07/27/17 11:09 Dose: 25 mg Ranolazine (Ranexa) 500 mg PO BID [facility] Last Admin: 07/27/17 18:47 Dose: 500 mg Rosuvastatin Calcium (Crestor) 10 mg PO HS [facility] Last Admin: 07/27/17 21:45 Dose: 10 mg Tamsulosin HCl (Flomax) 0.4 mg PO DAILY [facility] Last Admin: 07/27/17 11:09 Dose: 0.4 mg - Labs Labs: 07/28/17 06:30 07/25/17 06:23 PT 14.3 SECONDS (9.7-12.2) H 07/22/17 02:09 INR 1.3 07/22/17 02:09 APTT 51 SECONDS (21-34) H D 07/28/17 06:30 - Additional Findings Additional findings: - Constitutional Appears: Well, Non-toxic - Head Exam Head Exam: NORMAL INSPECTION - Eye Exam Eye Exam: EOMI - ENT Exam ENT Exam: Mucous Membranes Moist - Respiratory Exam Respiratory Exam: Clear to Ausculation Bilateral, NORMAL BREATHING PATTERN - Cardiovascular Exam Cardiovascular Exam: RRR, +S1, +S2 - GI/Abdominal Exam GI & Abdominal Exam: Soft. absent: Distended, Tenderness - Extremities Exam Extremities Exam: Full ROM, Normal Inspection - Back Exam Back Exam: NORMAL INSPECTION - Neurological Exam Neurological Exam: Alert, Awake - Psychiatric Exam Psychiatric exam: Normal Affect, Normal Mood - Skin Skin Exam: Normal Color Assessment and Plan - Assessment and Plan (Free Text) Assessment: 47 [place] M with a PMH of CAD with recent PTCA LAD stent (1 BANG) on 07/14 and RCA stents (3 BANG) on 07/18 who presented with persistent chest pain Plan: 1. NSTEMI - cont nitrates - cont Crestor and Toprol - on heparin drip - cont ASA and Plavix - troponin trending down - underwent stress test and achieved >8 METS and tolerated >80% of maximum predicted HR with no chest pain or EKG changes - chest pain likely 2/2 L renal cysts noted on CT 2. CAD - cont nitrate, BB and statin - cont Ranexa - cont ASA Pepcid for GI ppx Patient was evaluated and discussed with Dr. Lopez
[2017-07-28 08:50] VITALS: BP 106/69; RESP 18; O2SAT 97
--- NOTE | 2017-07-28 09:51 | CARD ---
APPROVED REPORT Protocol: ARMANDO Test Type: Treadmill Stress Test Test Indications: CHEST PAIN Medications: LIST SCAN Medical History: CHEST PAIN Target HR: 172 bpm Resting ECG: normal Resting Heart Rate: 114 bpm Resting Blood Pressure: 110/60mmHg submaximum (85%): 146 bpm TEST SUMMARY [id number]. EXERCISESTAGE 103:[id number]/60.0. EXERCISESTAGE 203:[id number]/60.2. EXERCISESTAGE 300:[id number]/.2. [id number]/[id number]. POST EXERCISE Reason for Termination: Protocol Completed Target HR: No Max HR: 136 bpm 79% of Maximum Predicted HR: 172 bpm Exercise duration: 06:29 min:sec, 3 Stage Exercise capacity: 8.4METs Max Blood Pressure: 120/60mmHg Blood Pressure response to exercise: normal resting BP - appropriate response Heart Rate response to exercise: attenuated secondary to medication Chest Pain: Yes, non-limiting Angina index: 0 Arrhythmia: No, none ST Change: No, none Deviation: 0 mm INTERPRETATION Stress EKG Conclusion: - Baseline TWI in V3-V6 with no changs in ST noted post exercise - Mildly decreased exercise tolerance - No ischemic EKG changes noted at peak stress ( achieved 80% of maximal predicted heart rate )
[2017-07-28] MEDS: Metoprolol Succinate 25 mg XL Tab PO SCH (09:52)
[2017-07-28] MEDS: Ranolazine 500 mg Extended Release Tablets PO SCH (09:58)
[2017-07-28 12:18] LABS: ALBUMIN 3.9 g/dL (3.5-5.0); ALT/SGPT 84 U/L (21-72); AST/SGOT 58 U/L (17-59); BLOOD UREA NITROGEN 22 mg/dL (9-20); CALCIUM 9.8 mg/dl (8.6-10.4); GFR AFRICAN-AMERICAN > 60; GFR NON-AFRICAN AMERICAN 59
[2017-07-28 12:44] VITALS: PULSE 84
--- NOTE | 2017-07-28 14:40 | CP.PCM.PN ---
Subjective - Date & Time of Evaluation Date of Evaluation: 07/28/17 Time of Evaluation: 14:40 - Subjective Subjective: PATIENT WAS ADMITTED FOR NON STEMI AAOX3 / LAY IN BED NO SIGN OF DISTRESS NOTED DENIES CHEST PAIN OR SOB Objective - Vital Signs/Intake and Output Vital Signs (last 24 hours): Temp Pulse Resp BP Pulse Ox 98.0 F 84 18 106/69 97 07/28/17 08:49 07/28/17 12:00 07/28/17 08:49 07/28/17 08:49 07/28/17 08:49 Intake and Output: 07/28/17 07/28/17 06:59 18:59 Intake Total 1126.8 323.8 Output Total 550 Balance 576.8 323.8 - Medications Medications: Current Medications Acetaminophen (Tylenol 325mg Tab) 650 mg PO Q6 PRN PRN Reason: Pain, moderate (4-7) Last Admin: 07/23/17 18:59 Dose: 650 mg Aspirin (Ecotrin) 81 mg PO DAILY [facility] Last Admin: 07/28/17 09:52 Dose: 81 mg Clopidogrel Bisulfate (Plavix) 75 mg PO DAILY [facility] Last Admin: 07/28/17 09:52 Dose: 75 mg Famotidine (Pepcid) 20 mg PO BID [facility] Last Admin: 07/28/17 09:52 Dose: 20 mg Heparin Sodium/Sodium Chloride (Heparin 65004 Units/250ml 1/2 Normal Saline) 25 ,000 units in 250 mls @ 9.798 mls/hr IV .Q24H PRN; Protocol; 12 UNITS/KG/HR PRN Reason: PROTOCOL Last Admin: 07/28/17 01:32 Dose: 12 units/kg/hr, 9.798 mls/hr Isosorbide Mononitrate (Imdur Er) 30 mg PO DAILY [facility] Last Admin: 07/28/17 09:58 Dose: 30 mg Metoprolol Succinate (Toprol Xl) 25 mg PO DAILY [facility] Last Admin: 07/28/17 09:52 Dose: 25 mg Ranolazine (Ranexa) 500 mg PO BID [facility] Last Admin: 07/28/17 09:58 Dose: 500 mg Rosuvastatin Calcium (Crestor) 10 mg PO HS [facility] Last Admin: 07/27/17 21:45 Dose: 10 mg Tamsulosin HCl (Flomax) 0.4 mg PO DAILY [facility] Last Admin: 07/28/17 09:52 Dose: 0.4 mg - Labs Labs: 07/28/17 06:30 07/28/17 11:43 PT 14.3 SECONDS (9.7-12.2) H 07/22/17 02:09 INR 1.3 07/22/17 02:09 APTT 51 SECONDS (21-34) H D 07/28/17 06:30 Assessment and Plan - Assessment and Plan (Free Text) Assessment: PATIENT SEEN AND EXAMINED STRESS TEST WAS NORMAL AND DR MUNIZ CLEAR PATIENT FOR DC DISCUSSS WITH DR BEAUCHAMP WHO AGREE WITH THE PLAN FOLLOW UP WITH DR BEAUCHAMP IN 1-2 WEEK AT HER OFFICE ---CALL FOR APPOINTMENT FOLLOW UP WITH DR MUNIZ 1-2 WEEK AT HIS OFFICE ---CALL FOR APPOINTMENT CONTINUE ALL YOUR HOME MEDICATION NEW PRESCRIPTION GIVEN FLOMAX 0.4 MG BY MOUTH ONE TAB DAILY IMDUR 30 MG BY MOUTH ONE TAB DAILY RANEXA 500 MG BY MOUTH TWICE A DAY ACTIVITY TOLERATED CALL DR BEAUCHAMP OR GO TO THE EMERGENCY ROOM IF SYMPTOMS RETURN OR WORSENING DISCUSS WITH PATIENT AND PATIENT'S DAUGHTER WHO AGREE AND VERBALIZED UNDERSTANDING
--- NOTE | 2017-07-29 17:19 | CARD ---
APPROVED REPORT EKG Measurement Heart [id number] [place] 134P59 [id number] <Conclusion> Normal sinus rhythm Low voltage QRS Inferior infarct, age undetermined T wave abnormality, consider lateral ischemia Abnormal ECG
--- NOTE | 2017-08-09 06:12 | DS ---
HISTORY OF PRESENT ILLNESS: The patient admitted on 07/22/2017. He came in with chest pain and was diagnosed with STEMI. He has coronary artery disease and he is already status post stent of his left anterior distending artery that was 100% occluded. LAD of right is narrowed and he was having chest pain on and off. He got worse, so he came into the emergency room. His principal programmer is Dr. Lopez and he is teamed with me. VITAL SIGNS: His vital signs were okay. He was afebrile with blood pressure 100/61 and respiration normal. LABORATORY DATA: His blood count, CBC, was normal and chemistry was okay. His troponin was very high, 4.1100. HOSPITAL COURSE: The patient was admitted to telemetry, started on IV heparin, and he was to continue all the medications. His medications were aspirin, Plavix, Pepcid, heparin, lisinopril, metoprolol, morphine, and Crestor. The patient continued in the hospital and was discharged on 07/28/2017 after he became more stable and no chest pain anymore. He will follow up by me and by Dr. Lopez. He has to continue all his medications as he was advised, so he was discharged on that day on the same medications and he will follow up. FINAL DIAGNOSES: Severe coronary artery disease, ST myocardial infarction. He had a CAT scan during the admission to rule out PE and there was clear lung and there was no PE and there no infiltrate. There were small two renal cysts were seen. Lisa Baez MD
== END 2017-07-28 15:52 | disposition home or self-care (01) | DRG 121 ==
LOC: C.ER 02:00 → SUPCPDRO 02:00 → C.6T 02:56
PROVIDERS: ADMIT Internal Medicine; ATTEND Internal Medicine
DX: I22.2 Subsequent non-ST elevation (NSTEMI) myocardial infarction (principal); I50.9 Heart failure, unspecified; I11.0 Hypertensive heart disease with heart failure; I21.09 ST elevation (STEMI) myocardial infarction involving other coronary artery of anterior wall; I25.10 Atherosclerotic heart disease of native coronary artery without angina pectoris; Z95.5 Presence of coronary angioplasty implant and graft; R04.0 Epistaxis; N28.1 Cyst of kidney, acquired

== ENCOUNTER 2017-09-05 17:13 | Inpatient (IN) | payer MEDICAID ==
[2017-09-05 17:13] VITALS: BMI 27.3
[2017-09-05] MEDS ORDERED: Nitroglycerin 2% Ointment Foilpak UD TOP STA (17:38)
[2017-09-05] MEDS ORDERED: Nitroglycerin 2% Ointment Foilpak UD TOP ONE (17:48)
[2017-09-05 17:49] LABS: BASO % 0.5 % (0.0-2.0); EOS # 0.2 K/uL (0.0-0.7); EOS % 3.6 % (0.0-4.0); LYMPH % 34.9 % (20.0-40.0); MEAN CELL VOLUME 89.5 fL (80.0-94.0); MEAN CORPUSCULAR HEMOGLOBIN 30.6 pg (27.0-31.0); MEAN CORPUSCULAR HGB CONC 34.2 g/dL (33.0-37.0); MEAN PLATELET VOLUME 9.4 fL (7.2-11.7); MONO # 0.5 K/uL (0.0-0.8); MONO % 9.2 % (0.0-10.0); NEUT # 2.9 K/uL (1.8-7.0); NEUT % 51.8 % (50.0-75.0); NRBC % 0.1 % (0.0-2.0); RBC 4.58 Mil/uL (4.40-5.90); RED CELL DISTRIBUTION WIDTH 13.3 % (11.5-14.5); WHITE BLOOD COUNT 5.6 K/uL (4.8-10.8)
[2017-09-05 18:03] LABS: ALB/GLOB RATIO 1.3 (1.0-2.1); ALBUMIN 4.3 g/dL (3.5-5.0); ALT/SGPT 38 U/L (21-72); AST/SGOT 30 U/L (17-59); BLOOD UREA NITROGEN 25 mg/dL (9-20); CALCIUM 9.4 mg/dl (8.6-10.4); GFR AFRICAN-AMERICAN > 60; GFR NON-AFRICAN AMERICAN 54
[2017-09-05 18:13] LABS: B-TYPE NATRIURETIC PEPTIDE 946 pg/mL (0-450)
[2017-09-05 18:22] LABS: INR 1.2; PROTHROMBIN TIME 12.8 SECONDS (9.7-12.2)
[2017-09-05 18:23] LABS: D DIMER < 200 ng/mlDDU (0-243); PARTIAL THROMBOPLASTIN TIME 32 SECONDS (21-34)
--- NOTE | 2017-09-05 18:34 | RAD ---
PROCEDURE: CHEST RADIOGRAPH, 1 VIEW HISTORY: chest pain COMPARISON: 07/22/2017 FINDINGS: LUNGS: Clear. PLEURA: No pneumothorax or pleural fluid seen. CARDIOVASCULAR: No radiographic findings to suggest acute or significant cardiovascular disease. OSSEOUS STRUCTURES: No significant abnormalities. VISUALIZED UPPER ABDOMEN: Normal. OTHER FINDINGS: None. IMPRESSION: No active disease. No acute/significant interval changes.
--- NOTE | 2017-09-05 19:26 | C.PDOC ---
Time Seen by Provider: 09/05/17 17:31 Chief Complaint (Nursing): Chest Pain History Per: Patient, Family Onset/Duration Of Symptoms: Hrs (since last night) Current Symptoms Are (Timing): Still Present Severity: Moderate Quality: Other (Discomfort) Modifying Factors: Other Indicated Below Alleviating Factors: None Additional History Per: Prior Records Past Medical History Reviewed: Historical Data, Nursing Documentation, Vital Signs Vital Signs: Last Vital Signs Temp 98.8 F 09/05/17 17:15 Pulse 69 09/05/17 18:26 Resp 17 09/05/17 18:26 BP 113/64 09/05/17 18:26 Pulse Ox 96 09/05/17 18:26 - Medical History PMH: CAD, HTN, Hypercholesterolemia Surgical History: Coronary Stent - [facility] Procedures CLOSURE SKIN & SUBCUTANEOUS NEC (10/23/14) DILATION OF 1 COR ART WITH DRUG-ELUT INTRA, PERC APPROACH (07/12/17) FLUOROSCOPY OF MULT COR ART USING L OSM CONTRAST (07/12/17) FLUOROSCOPY OF RIGHT AND LEFT HEART USING L OSM CONTRAST (07/12/17) MEASURE CARDIAC SAMPL & PRESSURE, BILATERAL, PERC (07/12/17) Family History: States: Unknown Family Hx - Social History Hx Alcohol Use: Yes (SOCIAL) Hx Substance Use: No - Immunization History Hx Tetanus Toxoid Vaccination: No Hx Influenza Vaccination: No Hx Pneumococcal Vaccination: No Review Of Systems Except As Marked, All Systems Reviewed And Found Negative. Constitutional: Negative for: Fever, Weakness Cardiovascular: Positive for: Chest Pain Respiratory: Negative for: Shortness of Breath, Hemoptysis Gastrointestinal: Negative for: Vomiting, Abdominal Pain Musculoskeletal: Negative for: Neck Pain, Back Pain, Leg Pain Skin: Negative for: Rash Neurological: Negative for: Weakness, Numbness Physical Exam - Physical Exam Appears: Non-toxic, No Acute Distress Skin: Normal Color, Warm, Dry, No Rash Head: Atraumatic, Normacephalic Eye(s): bilateral: Normal Inspection, PERRL, EOMI Neck: Normal ROM, Supple Chest: Symmetrical, No Deformity, No Tenderness Cardiovascular: Rhythm Regular Respiratory: Normal Breath Sounds, No Accessory Muscle Use Gastrointestinal/Abdominal: Soft, No Tenderness Back: No CVA Tenderness Extremity: Normal ROM, No Pedal Edema, No Calf Tenderness Neurological/Psych: Oriented x3, Normal Motor, Normal Sensation ED Course And Treatment - Laboratory Results Result Diagrams: 09/05/17 17:46 09/05/17 17:46 Lab Interpretation: No Acute Changes ECG: Interpreted By Me, Viewed By Me ECG Rhythm: Sinus Rhythm, Nonspecific Changes ECG Interpretation: No Changes From Prior Interpretation Of ECG: T wave inversion in inferior and V4-V6. Q waves in inferior leads. Rate From EC O2 Sat by Pulse Oximetry: 96 Pulse Ox Interpretation: Normal - Radiology CXR: Viewed By Me, Read By Radiologist CXR Interpretation: Yes: No Acute Disease Disposition Discussed With DrVilma: Lisa Baez Comment: She accepted pt on her service. Doctor Will See Patient In The: Hospital Counseled Patient/Family Regarding: Studies Performed, Diagnosis - Disposition Disposition: HOSPITALIZED Disposition Time: 19:28 Condition: FAIR - Clinical Impression Clinical Impression: Chest pain, rule out acute myocardial infarction
[2017-09-05] MEDS ORDERED: Metoprolol Succinate 50 mg XL Tab PO ONE (22:33)
[2017-09-05] MEDS: Metoprolol Succinate 25 mg XL Tab PO SCH (22:55)
[2017-09-06 02:53] LABS: CK-MB 0.8 ng/mL (0.0-3.38); TROPONIN I 0.03 ng/mL (0.00-0.120)
[2017-09-06] MEDS ORDERED: Metoprolol Succinate 25 mg XL Tab PO SCH (10:00)
[2017-09-06 10:33] LABS: CK-MB 1.01 ng/mL (0.0-3.38); TROPONIN I 0.025 ng/mL (0.00-0.120)
--- NOTE | 2017-09-06 11:14 | CP.PCM.HP ---
History of Present Illness - History of Present Illness History of Present Illness: pt came in for chest pain known cad Present on Admission - Present on Admission Any Indicators Present on Admission: No Review of Systems - Review of Systems Systems not reviewed;Unavailable: Acuity of Condition - Constitutional Constitutional: As Per HPI - EENT Eyes: As Per HPI Nose/Mouth/Throat: As Per HPI - Cardiovascular Cardiovascular: Chest Pain, Chest Pain at Rest, Dyspnea - Respiratory Respiratory: Dyspnea on Exertion - Gastrointestinal Gastrointestinal: As Per HPI - Genitourinary Genitourinary: As Per HPI - Reproductive: Male Reproductive:Male: As Per HPI - Musculoskeletal Musculoskeletal: As Per HPI - Integumentary Integumentary: As Per HPI - Neurological Neurological: As Per HPI - Psychiatric Psychiatric: As Per HPI - Endocrine Endocrine: As Per HPI - Hematologic/Lymphatic Hematologic: As Per HPI Past Patient History - Infectious Disease Hx of Infectious Diseases: None - Past Medical History & Family History Past Medical History?: Yes - Past Social History Smoking Status: Never Smoked - CARDIAC Hx Cardiac Disorders: Yes Hx Heart Attack: Yes Hx Hypercholesterolemia: Yes Hx Hypertension: Yes - PULMONARY Hx Respiratory Disorders: No - NEUROLOGICAL Hx Neurological Disorder: No - HEENT Hx HEENT Problems: No - RENAL Hx Chronic Kidney Disease: No - ENDOCRINE/METABOLIC Hx Endocrine Disorders: No - HEMATOLOGICAL/ONCOLOGICAL Hx Blood Disorders: No - INTEGUMENTARY Hx Dermatological Problems: No - MUSCULOSKELETAL/RHEUMATOLOGICAL Hx Musculoskeletal Disorders: Yes Hx Falls: Yes - GASTROINTESTINAL Hx Gastrointestinal Disorders: No - GENITOURINARY/GYNECOLOGICAL Hx Genitourinary Disorders: Yes Other/Comment: kidney stones - PSYCHIATRIC Hx Substance Use: No - SURGICAL HISTORY Hx Surgeries: Yes Hx Coronary Stent: Yes (x2) - ANESTHESIA Hx Anesthesia: Yes Hx Anesthesia Reactions: No Hx Malignant Hyperthermia: No Has any member of the family had a problem w/ anesthesia?: No Meds Allergies/Adverse Reactions: Allergies Allergy/AdvReac Type Severity Reaction Status Date / Time No Known Allergies Allergy Verified 09/05/17 17:20 Physical Exam - Constitutional Appears: Non-toxic - Head Exam Head Exam: ATRAUMATIC - Eye Exam Eye Exam: Normal appearance Pupil Exam: NORMAL ACCOMODATION - ENT Exam ENT Exam: Mucous Membranes Moist - Neck Exam Neck exam: Positive for: Normal Inspection - Respiratory Exam Respiratory Exam: Clear to Auscultation Bilateral - Cardiovascular Exam Cardiovascular Exam: REGULAR RHYTHM - GI/Abdominal Exam GI & Abdominal Exam: Normal Bowel Sounds - Rectal Exam Rectal Exam: NORMAL INSPECTION - Exam Exam: NORMAL INSPECTION - Skin Skin Exam: Normal Color Results - Vital Signs Recent Vital Signs: Last Vital Signs Temp 97.8 F 09/06/17 08:00 Pulse 65 09/06/17 08:00 Resp 18 09/06/17 08:00 BP 121/71 09/06/17 09:46 Pulse Ox 98 09/06/17 08:00 - Labs Result Diagrams: 09/05/17 17:46 09/05/17 17:46 Labs: Laboratory Results - last 24 hr 09/05/17 09/05/17 09/05/17 17:46 17:46 17:46 WBC 5.6 RBC 4.58 Hgb 14.0 Hct 40.9 MCV 89.5 MCH 30.6 MCHC 34.2 RDW 13.3 Plt Count 186 MPV 9.4 Neut % (Auto) 51.8 Lymph % (Auto) 34.9 Jewell % (Auto) 9.2 Eos % (Auto) 3.6 Baso % (Auto) 0.5 Neut # (Auto) 2.9 Lymph # (Auto) 2.0 Jewell # (Auto) 0.5 Eos # (Auto) 0.2 Baso # (Auto) 0.0 PT 12.8 H INR 1.2 APTT 32 D-Dimer, Quantitative < 200 Sodium 141 Potassium 3.9 Chloride 104 Carbon Dioxide 24 Anion Gap 17 BUN 25 H Creatinine 1.4 Est GFR ( Amer) > 60 Est GFR (Non-Af Amer) 54 Random Glucose 120 H Calcium 9.4 Total Bilirubin 0.6 AST 30 ALT 38 Alkaline Phosphatase 64 Total Creatine Kinase CK-MB (Mass) Troponin I 0.0190 NT-Pro-B Natriuret Pep 946 H Total Protein 7.6 Albumin 4.3 Globulin 3.3 Albumin/Globulin Ratio 1.3 09/06/17 09/06/17 02:23 10:03 WBC RBC Hgb Hct MCV MCH MCHC RDW Plt Count MPV Neut % (Auto) Lymph % (Auto) Jewell % (Auto) Eos % (Auto) Baso % (Auto) Neut # (Auto) Lymph # (Auto) Jewell # (Auto) Eos # (Auto) Baso # (Auto) PT INR APTT D-Dimer, Quantitative Sodium Potassium Chloride Carbon Dioxide Anion Gap BUN Creatinine Est GFR ( Amer) Est GFR (Non-Af Amer) Random Glucose Calcium Total Bilirubin AST ALT Alkaline Phosphatase Total Creatine Kinase 60 60 CK-MB (Mass) 0.80 1.01 Troponin I 0.0300 0.0250 NT-Pro-B Natriuret Pep Total Protein Albumin Globulin Albumin/Globulin Ratio Assessment & Plan - Assessment and Plan (Free Text) Assessment: ac chest pain cad s/p angioplasty Plan: cont monitering and cardiology consult - Date & Time Date: 09/06/17 Time: 11:15
--- NOTE | 2017-09-06 19:37 | CARD ---
APPROVED REPORT EKG Measurement Heart [id number] [place] 142P60 [id number] <Conclusion> Normal sinus rhythm Inferior infarct, age undetermined Anterior infarct, age undetermined T wave abnormality, consider lateral ischemia Abnormal ECG
[2017-09-06] MEDS: Enoxaparin 40 mg Syringe SC SCH (20:27)
[2017-09-06] MEDS: Metoprolol Succinate 25 mg XL Tab PO SCH (22:02)
--- NOTE | 2017-09-06 23:56 | CP.PCM.CON ---
Past Patient History - Infectious Disease Hx of Infectious Diseases: None - Past Medical History & Family History Past Medical History?: Yes - Past Social History Smoking Status: Never Smoked - CARDIAC Hx Cardiac Disorders: Yes Hx Heart Attack: Yes Hx Hypercholesterolemia: Yes Hx Hypertension: Yes - PULMONARY Hx Respiratory Disorders: No - NEUROLOGICAL Hx Neurological Disorder: No - HEENT Hx HEENT Problems: No - RENAL Hx Chronic Kidney Disease: No - ENDOCRINE/METABOLIC Hx Endocrine Disorders: No - HEMATOLOGICAL/ONCOLOGICAL Hx Blood Disorders: No - INTEGUMENTARY Hx Dermatological Problems: No - MUSCULOSKELETAL/RHEUMATOLOGICAL Hx Musculoskeletal Disorders: Yes Hx Falls: Yes - GASTROINTESTINAL Hx Gastrointestinal Disorders: No - GENITOURINARY/GYNECOLOGICAL Hx Genitourinary Disorders: Yes Other/Comment: kidney stones - PSYCHIATRIC Hx Substance Use: No - SURGICAL HISTORY Hx Surgeries: Yes Hx Coronary Stent: Yes (x2) - ANESTHESIA Hx Anesthesia: Yes Hx Anesthesia Reactions: No Hx Malignant Hyperthermia: No Has any member of the family had a problem w/ anesthesia?: No Meds Allergies/Adverse Reactions: Allergies Allergy/AdvReac Type Severity Reaction Status Date / Time No Known Allergies Allergy Verified 09/05/17 17:20 - Medications Medications: Current Medications Aspirin (Ecotrin) 81 mg PO DAILY [facility] Last Admin: 09/06/17 09:43 Dose: 81 mg Clopidogrel Bisulfate (Plavix) 75 mg PO DAILY [facility] Last Admin: 09/06/17 09:43 Dose: 75 mg Enoxaparin Sodium (Lovenox) 40 mg SC DAILY [facility] Last Admin: 09/06/17 20:27 Dose: 40 mg Isosorbide Mononitrate (Imdur Er) 30 mg PO DAILY [facility] Last Admin: 09/06/17 09:43 Dose: 30 mg Metoprolol Succinate (Toprol Xl) 25 mg PO Q24H [facility] Last Admin: 09/06/17 22:02 Dose: 25 mg Rosuvastatin Calcium (Crestor) 40 mg PO HS [facility] Last Admin: 09/06/17 22:02 Dose: 40 mg Tamsulosin HCl (Flomax) 0.4 mg PO DAILY [facility] Last Admin: 09/06/17 09:43 Dose: 0.4 mg Results - Vital Signs Recent Vital Signs: Last Vital Signs Temp 98.2 F 09/06/17 21:13 Pulse 84 09/06/17 21:29 Resp 18 09/06/17 21:13 BP 116/73 09/06/17 21:13 Pulse Ox 98 09/06/17 21:13 - Labs Result Diagrams: 09/05/17 17:46 09/05/17 17:46 Labs: Laboratory Results - last 24 hr 09/06/17 09/06/17 02:23 10:03 Total Creatine Kinase 60 60 CK-MB (Mass) 0.80 1.01 Troponin I 0.0300 0.0250 Assessment & Plan - Date & Time Date: 09/06/17 Time: 23:31
[2017-09-07 06:43] LABS: BLOOD UREA NITROGEN 22 mg/dL (9-20); GFR AFRICAN-AMERICAN > 60; GFR NON-AFRICAN AMERICAN > 60; HDL CHOLESTEROL 30 mg/dL (30-70)
[2017-09-07 06:54] LABS: LDL CHOLESTEROL 61 mg/dL (0-129)
[2017-09-07 07:46] VITALS: BP 108/69; RESP 20; TEMP 98; O2SAT 98
[2017-09-07] MEDS: Enoxaparin 40 mg Syringe SC SCH (09:15)
--- NOTE | 2017-09-07 13:30 | CP.PCM.PN ---
Subjective - Date & Time of Evaluation Date of Evaluation: 09/07/17 Time of Evaluation: 13:28 - Subjective Subjective: pt has no chest pain c enzys neg ekg abn but same as befor Objective - Vital Signs/Intake and Output Vital Signs (last 24 hours): Temp Pulse Resp BP Pulse Ox 98.0 F 64 20 108/69 98 09/07/17 07:20 09/07/17 08:20 09/07/17 07:20 09/07/17 07:20 09/07/17 07:20 Intake and Output: 09/07/17 09/07/17 06:59 18:59 Intake Total 240 Balance 240 - Medications Medications: Current Medications Aspirin (Ecotrin) 81 mg PO DAILY [facility] Last Admin: 09/07/17 09:14 Dose: 81 mg Clopidogrel Bisulfate (Plavix) 75 mg PO DAILY [facility] Last Admin: 09/07/17 09:15 Dose: 75 mg Enoxaparin Sodium (Lovenox) 40 mg SC DAILY [facility] Last Admin: 09/07/17 09:15 Dose: 40 mg Isosorbide Mononitrate (Imdur Er) 30 mg PO DAILY [facility] Last Admin: 09/07/17 09:14 Dose: 30 mg Metoprolol Succinate (Toprol Xl) 25 mg PO Q24H [facility] Last Admin: 09/06/17 22:02 Dose: 25 mg Rosuvastatin Calcium (Crestor) 40 mg PO HS [facility] Last Admin: 09/06/17 22:02 Dose: 40 mg Tamsulosin HCl (Flomax) 0.4 mg PO DAILY [facility] Last Admin: 09/07/17 09:14 Dose: 0.4 mg - Labs Labs: 09/05/17 17:46 09/07/17 06:21 PT 12.8 SECONDS (9.7-12.2) H 09/05/17 17:46 INR 1.2 09/05/17 17:46 APTT 32 SECONDS (21-34) 09/05/17 17:46 - Constitutional Appears: Non-toxic - Head Exam Head Exam: NORMAL INSPECTION - Eye Exam Eye Exam: Normal appearance Pupil Exam: NORMAL ACCOMODATION - ENT Exam ENT Exam: Normal Exam - Neck Exam Neck Exam: Full ROM - Respiratory Exam Respiratory Exam: NORMAL BREATHING PATTERN - Cardiovascular Exam Cardiovascular Exam: REGULAR RHYTHM - GI/Abdominal Exam GI & Abdominal Exam: Normal Bowel Sounds - Exam Exam: NORMAL INSPECTION External exam: NORMAL EXTERNAL EXAM - Extremities Exam Extremities Exam: Full ROM - Neurological Exam Neurological Exam: Alert, Normal Gait, Oriented x3 - Skin Skin Exam: Normal Color Assessment and Plan - Assessment and Plan (Free Text) Assessment: chest pain cad s/p angio stable improved will d/ c home on med f/u in my office
[2017-09-07 13:59] VITALS: PULSE 92
--- NOTE | 2017-09-07 22:31 | CARD ---
APPROVED REPORT EKG Measurement Heart [id number] <Conclusion> Normal sinus rhythm Inferior infarct, age undetermined Anteroseptal infarct, age undetermined T wave abnormality, consider lateral ischemia Abnormal ECG
--- NOTE | 2017-09-07 22:31 | CARD ---
APPROVED REPORT EKG Measurement Heart [id number] <Conclusion> Normal sinus rhythm Inferior infarct, age undetermined Anterior infarct, age undetermined T wave abnormality, consider lateral ischemia Abnormal ECG
== END 2017-09-07 14:46 | disposition home or self-care (01) | DRG 133 ==
LOC: C.ER 17:13 → C.9E 19:28 → C.9I 09-06 04:26 → OBSVTOIN 09-06 20:19 → C.6T 09-06 21:00
PROVIDERS: ADMIT Internal Medicine; ATTEND Internal Medicine
DX: I25.10 Atherosclerotic heart disease of native coronary artery without angina pectoris (principal); E78.00 Pure hypercholesterolemia, unspecified; I10 Essential (primary) hypertension; N20.0 Calculus of kidney; Z95.5 Presence of coronary angioplasty implant and graft; Z53.8 Procedure and treatment not carried out for other reasons

== ENCOUNTER → 2017-12-28 | Day surgery (SDC) | payer MEDICAID ==
[2017-12-28 11:12] VITALS: BMI 24.8
[2017-12-28 11:32] LABS: BASO % 0.3 % (0.0-2.0); EOS # 0.1 K/uL (0.0-0.7); EOS % 3.6 % (0.0-4.0); HEMOGLOBIN 14.1 g/dL (12.0-18.0); LYMPH # 1.2 K/uL (1.0-4.3); LYMPH % 36.9 % (20.0-40.0); MEAN CELL VOLUME 90.3 fL (80.0-94.0); MEAN CORPUSCULAR HEMOGLOBIN 31.1 pg (27.0-31.0); MEAN CORPUSCULAR HGB CONC 34.5 g/dL (33.0-37.0); MEAN PLATELET VOLUME 8.9 fL (7.2-11.7); MONO # 0.4 K/uL (0.0-0.8); MONO % 11.4 % (0.0-10.0); NEUT # 1.6 K/uL (1.8-7.0); NEUT % 47.8 % (50.0-75.0); NRBC % 0.2 % (0.0-2.0); RBC 4.54 Mil/uL (4.40-5.90); RED CELL DISTRIBUTION WIDTH 13.2 % (11.5-14.5); WHITE BLOOD COUNT 3.4 K/uL (4.8-10.8)
[2017-12-28 11:43] LABS: INR 1.2; PROTHROMBIN TIME 13.4 SECONDS (9.7-12.2)
[2017-12-28 11:49] LABS: BLOOD UREA NITROGEN 20 mg/dL (9-20); CALCIUM 9.2 mg/dl (8.6-10.4); GFR NON-AFRICAN AMERICAN > 60
== END | disposition home or self-care (01) ==
LOC: C.CATHLAB 10:51
PROVIDERS: ATTEND Internal Medicine Interventional Cardiology
DX: Z53.9 Procedure and treatment not carried out, unspecified reason (principal); I20.0 Unstable angina

== ENCOUNTER 2018-01-04 09:57 | Day surgery (SDC) | payer MEDICAID ==
[2018-01-04 11:43] VITALS: BMI 24.5
[2018-01-04] MEDS ORDERED: Midazolam 2 MG/2 ML VIAL ONE ×2 (11:49→12:19)
[2018-01-04] MEDS ORDERED: Iodixanol 320 MG/ML 100 ML BOTTLE IV ONE (12:32)
--- NOTE | 2018-01-05 02:31 | CARDCATH ---
PROCEDURE DATE: 01/04/2018 INDICATIONS: Mr. Guerrero is a 47-year-old with past medical history significant for acute myocardial infarction, angioplasty and stenting of the RCA, and subsequently stage intervention of left anterior descending artery who was brought for symptoms of unstable angina and chest pain with minimal activity, relieved with nitroglycerin, and he was therefore brought to the [facility] for further evaluation and treatment. PROCEDURE PERFORMED: Left heart catheterization with selective left and right coronary angiogram with left ventriculogram, 6-[place]ut right radial arterial access. Angiographic findings: Right coronary artery is a large sized vessel, has a proximal and mid stents which are widely patent with no significant stenosis. Left ventricular ejection fraction is mildly impaired, ejection fraction is 40% to 45%. Left main large size vessel bifurcates into LAD and circ. Left circumflex runs in the AV groove and had a mid to distal 55% to 60% stenosis, gives off the left PLV branches which has distal 70% stenosis. LAD is a large sized vessel, has a proximal stent which is widely patent. No significant stenosis, gives off diagonal branch. IMPRESSION: Patent left anterior descending and right coronary artery stent. Distal left circumflex stenosis. Mild left ventricular systolic dysfunction. RECOMMENDATIONS: The patient is to continue aggressive medical management and risk factor modification. If the patient has breakthrough symptoms of ischemia on maximum medical therapy, consider FFR guided revascularization of distal left circumflex PLV branches. Deo Lopez MD
[2018-01-05 12:06] VITALS: RESP 19; O2SAT 100
== END 2018-01-04 16:30 | disposition home or self-care (01) ==
LOC: C.CATHLAB 09:57
PROVIDERS: ATTEND Internal Medicine Interventional Cardiology
DX: I21.9 Acute myocardial infarction, unspecified (principal); I25.10 Atherosclerotic heart disease of native coronary artery without angina pectoris; Z95.5 Presence of coronary angioplasty implant and graft
CPT/HCPCS: 93458; 94770; 99152; 99153; C1769; C1887; C1894; J1644; J2001; J2250; J3010; Q9967